=== PATIENT | female | born 1950 | race Caucasian/White ===

== ENCOUNTER 2016-12-05 15:54 | Inpatient (IN) | payer BC ==
[~2016-12-05] VITALS: Ht 165.1 cm; Wt 85.0 kg
[~2016-12-05 15:54] MED LIST: CALC600T13 PO; LEVO.05 PO; MULT-135 PO; NATU400T PO; ROSU5 PO; VENTAER INH
[2016-12-06] MEDS ORDERED: INSULIN HUMAN REGULAR 1,000 UNITS/10 ML VIAL SQ PRN (11:30)
[2016-12-06] MEDS ORDERED: LACTATED RINGER'S 1000 ML IV PRN (11:30)
[2016-12-06] MEDS ORDERED: METOPROLOL TARTRATE 25 MG TAB PO PRN (11:30)
[2016-12-06] MEDS ORDERED: SODIUM CHLORID 0.9% 500 ML IV PRN (11:30)
[2016-12-06] MEDS ORDERED: POVIDONE IODINE 5% (ANTISEPSIS KIT) 4 APPLICATIONS EACH NARE PRN (11:30)
[2016-12-06] MEDS ORDERED: CHLORHEXIDINE GLUCONATE 2 % 1 PACK (2 CLOTHS) TOPICAL PRN (11:30)
[2016-12-06] MEDS ORDERED: ceFAZolin 2 GM PREMIX 50 ML IV SCH (11:30)
[2016-12-06 11:43] VITALS: BP 152/89; PULSE 79; RESP 18; TEMP 98.2; O2SAT 97
[2016-12-06] MEDS ORDERED: DEXMEDETOMIDINE HCL 200 MCG/2 ML VIAL IV ONE (12:00)
[2016-12-06] MEDS ORDERED: ePHEDrine/NS 25 MG/5 ML SYR IV ONE (12:24)
[2016-12-06] MEDS ORDERED: NORMOSOL R INJ 4,000 ML IV ONE (12:24)
[2016-12-06] MEDS ORDERED: PHENYLEPH/NS 1000 MCG/10 ML SYR IV ONE (12:24)
[2016-12-06] MEDS ORDERED: LACTATED RINGER'S 1000 ML INJ 2,000 ML IV ONE (12:24)
[2016-12-06] MEDS ORDERED: NEOSTIGMINE 3 MG/3 ML SYR IV ONE (12:24)
[2016-12-06] MEDS ORDERED: PROPOFOL 200 MG/20 ML AMP IV ONE (12:24)
[2016-12-06] MEDS ORDERED: ONDANSETRON HCL 4 MG/2 ML VIAL IV PUSH ONE (12:24)
[2016-12-06] MEDS ORDERED: BUPIVACAINE LIPOSOME PF 1.3% 20 ML VIAL ONE (12:50)
[2016-12-06 13:11] LABS: APTT (PATIENT) 22.2 SEC (24.3-30.1)
[2016-12-06] MEDS ORDERED: FAMOTIDINE 20 MG/2 ML VIAL ONE (13:16)
[2016-12-06] MEDS ORDERED: DEXAMETHASONE SOD PHOS 4 MG/ML VIAL ONE (13:16)
[2016-12-06] MEDS ORDERED: ACETAMINOPHEN 1000 MG/100 ML VIAL IV ONE (13:20)
[2016-12-06] MEDS ORDERED: ceFAZolin INJ 1,000 MG VIAL IV ONE (14:00)
[2016-12-06] MEDS ORDERED: metroNIDAZOLE 500 MG INJ 100 ML IV ONE (14:30)
[2016-12-06] MEDS ORDERED: METHYLENE BLUE 10 MG/ML VIAL OTHER ONE (17:00)
[2016-12-06 17:12] LABS: AUTOMATED NEUTROPHIL # 12.5 TH/MM3 (1.8-7.7); BASOPHIL % 0.2 % (0.0-2.0); EOSINOPHIL % 0.2 % (0.0-4.0); HEMATOCRIT 26.6 % (35.0-46.0); HEMO FLAGS DIFF FINAL; LYMPH % 7.1 % (9.0-44.0); MEAN CELL VOLUME 81.8 FL (80.0-100.0); MEAN CORPUSCULAR HEMOGLOBIN 28.3 PG (27.0-34.0); MEAN CORPUSCULAR HGB CONC 34.6 % (32.0-36.0); MONO % 3.1 % (0.0-8.0); NEUT % 89.4 % (16.0-70.0); PLATELET COUNT 173 TH/MM3 (150-450); RED BLOOD COUNT 3.26 MIL/MM3 (4.00-5.30); RED CELL DISTRIBUTION WIDTH 13.9 % (11.6-17.2)
[2016-12-06 17:43] LABS: BLOOD GAS BASE EXCESS -4.6 mmol/L (-2-2); BLOOD GAS CARBOXYHEMOGLOBIN 1.3 % (0-4); BLOOD GAS HCO3 20 mmol/L (22-26); BLOOD GAS O2 HGB SATURATION 97 % (90-100); BLOOD GAS OXYGEN CONTENT 22.3 Vol % (12.0-20.0); BLOOD GAS PCO2 35 mmHg (38-42); BLOOD GAS PO2 243 mmHg (61-120); BLOOD GAS TOTAL HGB 15.9 G/DL (12.0-16.0); CRITICAL VALUE NO; OXYGEN DEVICE OR; STAT YES; TEMP CORR TO 98.6; VENT SETTINGS OR
[2016-12-06] MEDS ORDERED: DEXMEDETOMIDINE INJ 50 ML ONE (18:42)
[2016-12-06] MEDS ORDERED: BENZOCAINE 20% ORAL SPR 60 ML CAN MT PRN (19:30)
[2016-12-06] MEDS ORDERED: SODIUM CHLORIDE 0.9% FLUSH 10 ML FLUSH IV FLUSH PRN (19:30)
[2016-12-06] MEDS ORDERED: GLUCAGON 1 MG/ML VIAL OTHER PRN (19:30)
[2016-12-06] MEDS ORDERED: NALOXONE HCL 0.4 MG/ML AMP IV PRN ×2 (19:30)
[2016-12-06] MEDS ORDERED: DEXTROSE 50% IN WATER 50 ML VIAL(D50) IV PUSH PRN (19:30)
[2016-12-06] MEDS ORDERED: diphenhydrAMINE HCL 50 MG/ML VIAL IV PRN (19:30)
[2016-12-06] MEDS ORDERED: Post-op Orders (for Pharmacy) MISC XX ONE (19:30)
[2016-12-06 19:45] VITALS: O2SAT 100
[2016-12-06] MEDS ORDERED: MIDAZOLAM HCL 2 MG/2 ML VIAL ONE (19:53)
[2016-12-06] MEDS ORDERED: fentaNYL CITRATE 250 MCG/5 ML AMP ONE ×2 (19:53→19:54)
[2016-12-06] MEDS ORDERED: MORPHINE SULFATE 4 MG/ML INJ ONE (19:54)
--- NOTE | 2016-12-06 20:05 | HHI.PR ---
Immediate Post Op Note Procedure Date: Dec 06, 2016 Pre Op Diagnosis: (1) Pelvic mass in female Post Op Diagnosis: (1) Pelvic mass in female (2) Carcinomatosis Surgeon: Dada Kyle Termite Control Service Representative(s): MD Fifi Christian MD Procedure: ExLap resection of pelvic mass with en bloc resection of sigmoid colon and distal rectum, with end colostomy Left ureterolysis Repair of cystotomy Repair of left internal iliac vein (Maria Dolores) Repair of vaginal cuff (Fifi) Findings: pelvic mass involving sigmoid colon, distal rectum, left iliac vein, bladder and vaginal cuff Complications: none Specimen(s) removed: pelvic mass Estimated blood loss: 2 liters Anesthesia: General, Regional Block Drains: SOLO IVF Patient to: PACU Patient Condition: Good Dada Kyle MD Dec 06, 2016 20:05
[2016-12-06] MEDS: PANTOPRAZOLE SODIUM 40 MG VIAL IV SCH (20:40)
[2016-12-06] MEDS ORDERED: *ONDANSETRON 4 MG VIAL PERIprocedural Use ONLY ONE (20:44)
[2016-12-06] MEDS: LACTATED RINGER'S 1000 ML INJ 1,000 ML IV SCH (20:50)
[2016-12-06] MEDS: SODIUM CHLORIDE 0.9% FLUSH 10 ML FLUSH IV FLUSH SCH (21:00)
[2016-12-06] MEDS: ACETAMINOPHEN 1000 MG/100 ML VIAL IV SCH (21:06)
[2016-12-06] MEDS: MORPHINE SULFATE 30 MG/30 ML PCA IV SCH ×2 (21:12→21:15)
[2016-12-06] MEDS ORDERED: METOCLOPRAMIDE HCL 10 MG/2 ML VIAL ONE (21:28)
[2016-12-06] MEDS: INSULIN NovoLIN REGULAR SUPPLEMENTAL SCALE SQ SCH (21:30)
[2016-12-06 21:35] LABS: APTT (PATIENT) 19.7 SEC (24.3-30.1); INTERNATIONAL NORMALIZED RATIO 1.1 RATIO; PROTHROMBIN TIME - PATIENT 11.7 SEC (9.8-11.6)
[2016-12-06 21:41] LABS: HEMATOCRIT 30.2 % (35.0-46.0); MEAN CELL VOLUME 81.1 FL (80.0-100.0); MEAN CORPUSCULAR HEMOGLOBIN 27.6 PG (27.0-34.0); MEAN CORPUSCULAR HGB CONC 34.1 % (32.0-36.0); PLATELET COUNT 134 TH/MM3 (150-450); RED BLOOD COUNT 3.72 MIL/MM3 (4.00-5.30); RED CELL DISTRIBUTION WIDTH 14.4 % (11.6-17.2); REVIEW FLAG FINAL; WHITE BLOOD COUNT 13.3 TH/MM3 (4.0-11.0)
[2016-12-06] MEDS: PCA - TOTAL MG MORPHINE DELIVERED PER SHIFT SCH (22:00)
[2016-12-06 22:19] LABS: BICARBONATE 23.7 MEQ/L (21.0-32.0); MAGNESIUM 1.9 MG/DL (1.5-2.5); POTASSIUM 3.5 MEQ/L (3.5-5.1)
[2016-12-06 22:40] LABS: CALCIUM-PROTEIN CORRECTED 7.8 MG/DL (8.5-10.1)
[2016-12-06] MEDS: metroNIDAZOLE 500 MG INJ 100 ML IV SCH (23:50)
--- NOTE | 2016-12-07 00:45 | PD.CONS ---
[facility] Service Critical Care Medicine Consult Requested By Dr. Kyle Reason for Consult Critical care management following complex pelvic mass resection Primary Care Physician Non-Staff History of Present Illness 66-year-old female with past medical history of asthma, hyperlipidemia , hypothyroidism who has been recently diagnosed with a complex left pelvic mass. She has undergone exploratory laparotomy with pelvic mass resection, sigmoidectomy and colostomy by Dr. Jewell, Dr. Calix and Dr. Smith. Anesthesia records reviewed. She was a routine airway for intubation. She received 7 L of crystalloid, 4 units packed red cells, 534 of FFP intraoperatively. Estimated blood loss was 2 L. Urine output 1 L. Postoperative hemoglobin is 10.5. 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 SKIN: Warm and dry, well perfused. HEAD: Atraumatic. Normocephalic. EYES: Pupils equal and round 3 mm and reactive bilaterally. ENT: No nasal bleeding or discharge. Mucous membranes pink and moist. NECK: Trachea midline. No JVD. CARDIOVASCULAR: Regular rate and rhythm, sinus rhythm on the monitor with rate in the 60s. No murmurs rubs or gallops. RESPIRATORY: No accessory muscle use. Clear to auscultation. Breath sounds equal bilaterally. On 2 L nasal cannula GASTROINTESTINAL: Abdomen soft, tender. Kay dressing in place midline. Ostomy in left abdomen with pink mucosa, no output in bag. Pravin drain RLQ to to bulb suction with dressing with output. : Escobar in place with light yellow urine output. MUSCULOSKELETAL: Extremities without clubbing, cyanosis, or edema. No obvious deformities. NEUROLOGICAL: Awake and alert. No obvious cranial nerve deficits. Motor grossly within normal limits. Normal speech. Oriented 4 Laboratory Laboratory Tests Test 12/06/16 12/06/16 12/06/16 12/06/16 12:40 13:17 16:08 16:51 Prothrombin Time 11.0 Prothromb Time International 1.0 Ratio Activated Partial 22.2 Thromboplast Time Blood Type A POSITIVE A POSITIVE A POSITIVE Antibody Screen NEGATIVE NEGATIVE Crossmatch Leukocyte-Reduced Leukocyte-Reduced Red Blood Red Blood Cells Cells Blood Bank Comment Test 12/06/16 12/06/16 12/06/16 16:58 17:30 20:54 White Blood Count 14.0 13.3 Red Blood Count 3.26 3.72 Hemoglobin 9.2 10.3 Hematocrit 26.6 30.2 Mean Corpuscular Volume 81.8 81.1 Mean Corpuscular Hemoglobin 28.3 27.6 Mean Corpuscular Hemoglobin 34.6 34.1 Concent Red Cell Distribution Width 13.9 14.4 Platelet Count 173 134 Mean Platelet Volume 9.3 9.3 Neutrophils (%) (Auto) 89.4 Lymphocytes (%) (Auto) 7.1 Monocytes (%) (Auto) 3.1 Eosinophils (%) (Auto) 0.2 Basophils (%) (Auto) 0.2 Neutrophils # (Auto) 12.5 Lymphocytes # (Auto) 1.0 Monocytes # (Auto) 0.4 Eosinophils # (Auto) 0.0 Basophils # (Auto) 0.0 CBC Comment DIFF FINAL Differential Comment Blood Gas Puncture Site DRAWN IN OR Blood Gas Patient Temperature 98.6 Blood Gas HCO3 20 Blood Gas Base Excess -4.6 Blood Gas Oxygen Saturation 97 Arterial Blood pH 7.37 Arterial Blood Partial 35 Pressure CO2 Arterial Blood Partial 243 Pressure O2 Arterial Blood Oxygen Content 22.3 Arterial Blood 1.3 Carboxyhemoglobin Arterial Blood Methemoglobin 1.0 Blood Gas Hemoglobin 15.9 Oxygen Delivery Device OR Blood Gas Ventilator Setting OR Prothrombin Time 11.7 Prothromb Time International 1.1 Ratio Activated Partial 19.7 Thromboplast Time Fibrinogen 151 Sodium Level 140 Potassium Level 3.5 Chloride Level 106 Carbon Dioxide Level 23.7 Anion Gap 10 Blood Urea Nitrogen 9 Creatinine 0.68 Estimat Glomerular Filtration 87 Rate Random Glucose 219 Lactic Acid Level 3.2 Calcium Level 6.5 Protein Corrected Calcium 7.8 Phosphorus Level 2.9 Magnesium Level 1.9 Total Protein 4.6 Result Diagram: 12/06/16205312/06/162053 Assessment and Plan Assessment and Plan NEURO: Osteoarthritis Morphine DEPUTY CITY CLERK RESP: History of asthma Nasal cannula wean as tolerated Albuterol q2 hours prn wheezing IS q1 hour awake CV: Hyperlipidemia Crestor 5 mg po qhs when able to take po GI: s/p exploratory laparotomy with pelvic mass resection, sigmoidectomy and colostomy by Dr. Jewell, Dr. Calix and Dr. Smith NPO. Diet advancement per surgery. FEN/RENAL: LR at 150 mL per hour Escobar in place. Monitor intake and output. Monitor electrolytes and replace as indicated ID: Perioperative cefazolin and Flagyl per Dr. Jewell. HEME: Pathology pending. Prior biopsy high grade undifferentiated malignant neoplasm , Mullerian or renal origen. She has seen Dr. Corona Henry with oncology at [facility] as an outpatient. ENDO: Hypothyroidism Synthroid 25 mcg IV daily, transition to 50 mcg po daily when diet advanced. PROPH: SCDs for DVT prophylaxis. Protonix 40 mg IV daily for stress ulcer prophylaxis. ACCESS: Peripheral IV providing adequate access at this time. Full code Level III consultation Ema Torre MD Dec 07, 2016 00:45
[2016-12-07] MEDS: ACETAMINOPHEN 1000 MG/100 ML VIAL IV SCH ×4 (02:00→22:53)
[2016-12-07] MEDS: LACTATED RINGER'S 1000 ML INJ 1,000 ML IV SCH ×4 (03:30→22:09)
[2016-12-07 05:44] LABS: AUTOMATED NEUTROPHIL # 10.4 TH/MM3 (1.8-7.7); BASOPHIL % 0.1 % (0.0-2.0); HEMO FLAGS DIFF FINAL; LYMPH % 6.6 % (9.0-44.0); LYMPHOCYTE # 0.8 TH/MM3 (1.0-4.8); MEAN CELL VOLUME 80.4 FL (80.0-100.0); MEAN CORPUSCULAR HEMOGLOBIN 28.2 PG (27.0-34.0); NEUT % 86.3 % (16.0-70.0); PLATELET COUNT 127 TH/MM3 (150-450); RED BLOOD COUNT 3.23 MIL/MM3 (4.00-5.30); RED CELL DISTRIBUTION WIDTH 14.6 % (11.6-17.2); WHITE BLOOD COUNT 12.1 TH/MM3 (4.0-11.0)
[2016-12-07] MEDS: PCA - TOTAL MG MORPHINE DELIVERED PER SHIFT SCH ×3 (06:00→22:00)
[2016-12-07 06:09] LABS: BICARBONATE 27.1 MEQ/L (21.0-32.0); POTASSIUM 3.6 MEQ/L (3.5-5.1)
[2016-12-07 06:34] LABS: CALCIUM-PROTEIN CORRECTED 8.4 MG/DL (8.5-10.1)
[2016-12-07] MEDS: INSULIN NovoLIN REGULAR SUPPLEMENTAL SCALE SQ SCH ×4 (07:00→21:00)
[2016-12-07] MEDS: metroNIDAZOLE 500 MG INJ 100 ML IV SCH ×2 (07:00→15:48)
[2016-12-07] MEDS: ONDANSETRON HCL 4 MG/2 ML VIAL IV PRN ×4 (08:45→22:54)
[2016-12-07] MEDS: SODIUM CHLORIDE 0.9% FLUSH 10 ML FLUSH IV FLUSH SCH ×2 (09:00→22:56)
[2016-12-07] MEDS: ALVIMOPAN 12 MG CAPSULE PO SCH ×2 (09:00→22:54)
--- NOTE | 2016-12-07 09:03 | PD.TRANSFR ---
Transfer Summary Admission Date Dec 06, 2016 at 10:40 Transfer Date: Dec 08, 2016 Admitting Diagnosis Pelvic Mass Diagnoses: Transfer Summary/Subjective 66-year-old female with past medical history of asthma, hyperlipidemia , hypothyroidism who has been recently diagnosed with a complex left pelvic mass. She has undergone exploratory laparotomy with pelvic mass resection, sigmoidectomy and colostomy by Dr. Jewell, Dr. Calix and Dr. Smith. Anesthesia records reviewed. She was a routine airway for intubation. She received 7 L of crystalloid, 4 units packed red cells, 534 of FFP intraoperatively. Estimated blood loss was 2 L. Urine output 1 L. Postoperative hemoglobin is 10.5. 12/07: Hgb stable, urine output excellent, acid/base balance normal, breathing comfortably. Objective Vital Signs Date Time Temp Pulse Resp B/P Pulse Ox O2 Delivery O2 Flow Rate FiO2 12/07/16 07:00 75 12 108/58 99 Nasal Cannula 3 12/07/16 06:00 98.1 Intake and Output 12/06/16 12/06/16 12/07/16 08:00 16:00 00:00 Intake Total 8534 ml Output Total 3040 ml Balance 5494 ml Result Diagram: 12/07/16 0529 12/07/16 0529 Other Results Laboratory Tests Test 12/06/16 17:30 Blood Gas Puncture Site DRAWN IN OR Blood Gas Patient Temperature 98.6 Blood Gas HCO3 20 mmol/L (22-26) Blood Gas Base Excess -4.6 mmol/L (-2-2) Blood Gas Oxygen Saturation 97 % (90-100) Arterial Blood pH 7.37 (7.380-7.420) Arterial Blood Partial 35 mmHg (38-42) Pressure CO2 Arterial Blood Partial 243 mmHg Pressure O2 (61-120) Arterial Blood Oxygen Content 22.3 Vol % (12.0-20.0) Arterial Blood 1.3 % (0-4) Carboxyhemoglobin Arterial Blood Methemoglobin 1.0 % (0-2) Blood Gas Hemoglobin 15.9 G/DL (12.0-16.0) Oxygen Delivery Device OR Blood Gas Ventilator Setting OR P 78, BP 108/58, R 14, sats 97% Lungs: Clear, breathing comfortably. Objective Remarks Drips: LR 150 mL per hour Morphine CLINICAL APPEALS SPECIALIST Pulse 68 with normal sinus rhythm on the monitor blood pressure 99/50 sats 99% on 2 L nasal cannula GENERAL: Well-nourished, well-developed patient who is sitting up in PACU bed alerting to be negative. SKIN: Warm and dry, well perfused. HEAD: Atraumatic. Normocephalic. EYES: Pupils equal and round 3 mm and reactive bilaterally. ENT: No nasal bleeding or discharge. Mucous membranes pink and moist. NECK: Trachea midline. No JVD. CARDIOVASCULAR: Regular rate and rhythm, sinus rhythm on the monitor with rate in the 60s. No murmurs rubs or gallops. RESPIRATORY: No accessory muscle use. Clear to auscultation. Breath sounds equal bilaterally. On 2 L nasal cannula GASTROINTESTINAL: Abdomen soft, tender. Kay dressing in place midline. Ostomy in left abdomen with pink mucosa, no output in bag. Pravin drain RLQ to to bulb suction with dressing with output. : Escobar in place with light yellow urine output. MUSCULOSKELETAL: Extremities without clubbing, cyanosis, or edema. No obvious deformities. NEUROLOGICAL: Awake and alert. No obvious cranial nerve deficits. Motor grossly within normal limits. Normal speech. Oriented 4 A/P Assessment and Plan NEURO: Osteoarthritis Morphine CLINICAL APPEALS SPECIALIST RESP: History of asthma Nasal cannula wean as tolerated CV: Hyperlipidemia GI: FEN/RENAL: LR at 150 L per hour -> decrease to 75. ID: HEME: She has seen Dr. Corona Hnery with oncology at [facility] as an outpatient ENDO: Hypothyroidism PROPH: SCDs for DVT prophylaxis. Protonix 40 mg IV daily for stress ulcer prophylaxis. ACCESS: Peripheral IV providing adequate access at this time. Full code Overall impression: Well hydrated, breathing comfortably. Transfer to with Oil Change Technician consulting. Hopefully to [facility] in a.devan. Олег Gasca MD Dec 07, 2016 09:03
[2016-12-07 09:50] VITALS: BP 100/53; PULSE 70; RESP 20; TEMP 96.9; O2SAT 94
[2016-12-07] MEDS ORDERED: RESP: ALBUTEROL 2.5 MG/3 ML NEB (PRN) NEB (10:15)
--- NOTE | 2016-12-07 11:30 | PD.VS.CON ---
History of Present Illness Chief Complaint: call intraoperative for bleeding. Consult Requested by: Past/Family/Social History Past Medical History not obtained, patient in OR. Home Medications Reported Medications Albuterol 18 GM Inh (Ventolin Hfa 18 GM Inh)90 Mcg/Act Aer2 Puff INH Q4-6H PRN ( SHORTNESS OF BREATH) #1 INHALER Ref 0 12/05/16 Vitamin E 400 Unit Ial102 Units PO DAILY Ref 0 12/05/16 Multiple Vitamin (Multi Vitamin)1 Tab Tab1 Tab PO DAILY 12/05/16 Calcium 600 Mg Qtq375 Mg PO DAILY 12/05/16 Rosuvastatin (Crestor)5 Mg Tab5 Mg PO HS #30 TAB Ref 0 12/05/16 Levothyroxine (Synthroid)50 Mcg Tab50 Mcg PO DAILY #30 TAB Ref 0 12/05/16 Coded Allergies: Sulfa (Verified Allergy, Severe, GENERALIZED EDEMA, RASH, 12/06/16) Physical Exam Vitals/I&O Date Time Temp Pulse Resp B/P Pulse Ox O2 Delivery O2 Flow Rate FiO2 12/07/16 09:50 96.9 70 20 100/53 94 12/07/16 09:36 Room Air 12/07/16 09:00 98.4 74 12 97/71 99 Nasal Cannula 2 12/07/16 08:00 98.4 74 12 102/56 99 Nasal Cannula 2 12/07/16 07:00 75 12 108/58 99 Nasal Cannula 3 12/07/16 06:00 98.1 72 12 99/57 99 Nasal Cannula 3 12/07/16 06:00 14 12/07/16 05:00 69 12 110/55 99 Nasal Cannula 3 12/07/16 04:00 68 12 110/53 99 Nasal Cannula 3 12/07/16 03:00 70 11 120/54 99 Nasal Cannula 3 12/07/16 02:00 83 14 91/54 99 Nasal Cannula 3 12/07/16 01:00 64 12 119/67 99 Nasal Cannula 3 12/07/16 00:00 97.6 66 11 107/57 99 Nasal Cannula 3 12/06/16 23:00 75 12 93/49 99 Nasal Cannula 3 12/06/16 22:00 70 12 99/47 99 Nasal Cannula 3 12/06/16 22:00 14 12/06/16 21:36 14 4/12/17 21:15 14 12/06/16 21:12 14 12/06/16 21:00 97.8 75 15 107/60 99 Nasal Cannula 3 12/06/16 20:45 77 14 111/67 98 Nasal Cannula 3 12/06/16 20:30 80 11 108/60 99 Nasal Cannula 3 12/06/16 20:15 83 14 98/64 98 Nasal Cannula 3 12/06/16 20:00 84 12 99/58 99 Nasal Cannula 3 12/06/16 19:45 100 Nasal Cannula 2 12/06/16 19:45 88 12 102/56 100 Nasal Cannula 3 12/06/16 19:34 97.8 92 13 114/69 99 Ambu Bag 12/06/16 11:43 98.2 79 18 152/89 97 12/07/16 12/07/16 12/07/16 07:00 15:00 23:00 Intake Total 1675 ml 541 ml Output Total 1250 ml 150 ml Balance 425 ml 391 ml Neuro: not performed, patient intubated and with open abdomen. Laboratory Tests Test 12/06/16 12/06/16 12/06/16 12/06/16 12:40 13:17 16:08 16:51 Prothrombin Time 11.0 Prothromb Time International 1.0 Ratio Activated Partial 22.2 Thromboplast Time Blood Type A POSITIVE A POSITIVE A POSITIVE Antibody Screen NEGATIVE NEGATIVE Crossmatch Leukocyte-Reduced Leukocyte-Reduced Red Blood Red Blood Cells Cells Blood Bank Comment Test 12/06/16 12/06/16 12/06/16 12/07/16 16:58 17:30 20:54 05:29 White Blood Count 14.0 13.3 12.1 Red Blood Count 3.26 3.72 3.23 Hemoglobin 9.2 10.3 9.1 Hematocrit 26.6 30.2 26.0 Mean Corpuscular Volume 81.8 81.1 80.4 Mean Corpuscular Hemoglobin 28.3 27.6 28.2 Mean Corpuscular Hemoglobin 34.6 34.1 35.0 Concent Red Cell Distribution Width 13.9 14.4 14.6 Platelet Count 173 134 127 Mean Platelet Volume 9.3 9.3 9.2 Neutrophils (%) (Auto) 89.4 86.3 Lymphocytes (%) (Auto) 7.1 6.6 Monocytes (%) (Auto) 3.1 7.0 Eosinophils (%) (Auto) 0.2 0.0 Basophils (%) (Auto) 0.2 0.1 Neutrophils # (Auto) 12.5 10.4 Lymphocytes # (Auto) 1.0 0.8 Monocytes # (Auto) 0.4 0.9 Eosinophils # (Auto) 0.0 0.0 Basophils # (Auto) 0.0 0.0 CBC Comment DIFF FINAL DIFF FINAL Differential Comment Blood Gas Puncture Site DRAWN IN OR Blood Gas Patient Temperature 98.6 Blood Gas HCO3 20 Blood Gas Base Excess -4.6 Blood Gas Oxygen Saturation 97 Arterial Blood pH 7.37 Arterial Blood Partial 35 Pressure CO2 Arterial Blood Partial 243 Pressure O2 Arterial Blood Oxygen Content 22.3 Arterial Blood 1.3 Carboxyhemoglobin Arterial Blood Methemoglobin 1.0 Blood Gas Hemoglobin 15.9 Oxygen Delivery Device OR Blood Gas Ventilator Setting OR Prothrombin Time 11.7 Prothromb Time International 1.1 Ratio Activated Partial 19.7 Thromboplast Time Fibrinogen 151 Sodium Level 140 142 Potassium Level 3.5 3.6 Chloride Level 106 107 Carbon Dioxide Level 23.7 27.1 Anion Gap 10 8 Blood Urea Nitrogen 9 8 Creatinine 0.68 0.68 Estimat Glomerular Filtration 87 87 Rate Random Glucose 219 150 Lactic Acid Level 3.2 Calcium Level 6.5 7.0 Protein Corrected Calcium 7.8 8.4 Phosphorus Level 2.9 Magnesium Level 1.9 Total Protein 4.6 4.6 Assessment and Plan Assessment: (1) Bleeding Status: Acute (2) Pelvic mass in female Status: Acute Plan Called intraoperatively for bleeding from deep in pelvis with resection of tumor. Tumor was invasive and adherent to pelvic vessels. Repaired left hypogastric artery and left internal iliac vein. Operative note for this portion of operation dictated. Patient stable before DC from OR. Robert Smith DO, FACS Stripping Shovel Oiler of Vascular Surgery EVANGELIST/Robert García DO Dec 07, 2016 11:30
--- NOTE | 2016-12-07 11:33 | PD.VS.PN ---
Subjective Subjective/Hospital Course Status post resection of pelvic tumor. Asked to assist with bleeding. Objective Vitals/I&O Date Time Temp Pulse Resp B/P Pulse Ox O2 Delivery O2 Flow Rate FiO2 12/07/16 09:50 96.9 70 20 100/53 94 12/07/16 09:36 Room Air 12/07/16 09:00 98.4 74 12 97/71 99 Nasal Cannula 2 12/07/16 08:00 98.4 74 12 102/56 99 Nasal Cannula 2 12/07/16 07:00 75 12 108/58 99 Nasal Cannula 3 12/07/16 06:00 98.1 72 12 99/57 99 Nasal Cannula 3 12/07/16 06:00 14 12/07/16 05:00 69 12 110/55 99 Nasal Cannula 3 12/07/16 04:00 68 12 110/53 99 Nasal Cannula 3 12/07/16 03:00 70 11 120/54 99 Nasal Cannula 3 12/07/16 02:00 83 14 91/54 99 Nasal Cannula 3 12/07/16 01:00 64 12 119/67 99 Nasal Cannula 3 12/07/16 00:00 97.6 66 11 107/57 99 Nasal Cannula 3 12/06/16 23:00 75 12 93/49 99 Nasal Cannula 3 12/06/16 22:00 70 12 99/47 99 Nasal Cannula 3 12/06/16 22:00 14 12/06/16 21:36 14 12/06/16 21:15 14 12/06/16 21:12 14 12/06/16 21:00 97.8 75 15 107/60 99 Nasal Cannula 3 12/06/16 20:45 77 14 111/67 98 Nasal Cannula 3 12/06/16 20:30 80 11 108/60 99 Nasal Cannula 3 12/06/16 20:15 83 14 98/64 98 Nasal Cannula 3 12/06/16 20:00 84 12 99/58 99 Nasal Cannula 3 12/06/16 19:45 100 Nasal Cannula 2 12/06/16 19:45 88 12 102/56 100 Nasal Cannula 3 12/06/16 19:34 97.8 92 13 114/69 99 Ambu Bag 12/06/16 11:43 98.2 79 18 152/89 97 12/07/16 12/07/16 12/07/16 07:00 15:00 23:00 Intake Total 1675 ml 541 ml Output Total 1250 ml 150 ml Balance 425 ml 391 ml Physical Exam Palpable pedal pulses with warm extremities. Laboratory Laboratory Tests Test 12/06/16 12/06/16 12/06/16 12/06/16 12:40 13:17 16:08 16:51 Prothrombin Time 11.0 Prothromb Time International 1.0 Ratio Activated Partial 22.2 Thromboplast Time Blood Type A POSITIVE A POSITIVE A POSITIVE Antibody Screen NEGATIVE NEGATIVE Crossmatch Leukocyte-Reduced Leukocyte-Reduced Red Blood Red Blood Cells Cells Blood Bank Comment Test 12/06/16 12/06/16 12/06/16 12/07/16 16:58 17:30 20:54 05:29 White Blood Count 14.0 13.3 12.1 Red Blood Count 3.26 3.72 3.23 Hemoglobin 9.2 10.3 9.1 Hematocrit 26.6 30.2 26.0 Mean Corpuscular Volume 81.8 81.1 80.4 Mean Corpuscular Hemoglobin 28.3 27.6 28.2 Mean Corpuscular Hemoglobin 34.6 34.1 35.0 Concent Red Cell Distribution Width 13.9 14.4 14.6 Platelet Count 173 134 127 Mean Platelet Volume 9.3 9.3 9.2 Neutrophils (%) (Auto) 89.4 86.3 Lymphocytes (%) (Auto) 7.1 6.6 Monocytes (%) (Auto) 3.1 7.0 Eosinophils (%) (Auto) 0.2 0.0 Basophils (%) (Auto) 0.2 0.1 Neutrophils # (Auto) 12.5 10.4 Lymphocytes # (Auto) 1.0 0.8 Monocytes # (Auto) 0.4 0.9 Eosinophils # (Auto) 0.0 0.0 Basophils # (Auto) 0.0 0.0 CBC Comment DIFF FINAL DIFF FINAL Differential Comment Blood Gas Puncture Site DRAWN IN OR Blood Gas Patient Temperature 98.6 Blood Gas HCO3 20 Blood Gas Base Excess -4.6 Blood Gas Oxygen Saturation 97 Arterial Blood pH 7.37 Arterial Blood Partial 35 Pressure CO2 Arterial Blood Partial 243 Pressure O2 Arterial Blood Oxygen Content 22.3 Arterial Blood 1.3 Carboxyhemoglobin Arterial Blood Methemoglobin 1.0 Blood Gas Hemoglobin 15.9 Oxygen Delivery Device OR Blood Gas Ventilator Setting OR Prothrombin Time 11.7 Prothromb Time International 1.1 Ratio Activated Partial 19.7 Thromboplast Time Fibrinogen 151 Sodium Level 140 142 Potassium Level 3.5 3.6 Chloride Level 106 107 Carbon Dioxide Level 23.7 27.1 Anion Gap 10 8 Blood Urea Nitrogen 9 8 Creatinine 0.68 0.68 Estimat Glomerular Filtration 87 87 Rate Random Glucose 219 150 Lactic Acid Level 3.2 Calcium Level 6.5 7.0 Protein Corrected Calcium 7.8 8.4 Phosphorus Level 2.9 Magnesium Level 1.9 Total Protein 4.6 4.6 Assessment and Plan Assessment: (1) Bleeding Status: Acute (2) Pelvic mass in female Status: Acute Plan Called intraoperatively for bleeding from deep in pelvis with resection of tumor. Tumor was invasive and adherent to pelvic vessels. Repaired left hypogastric artery and left internal iliac vein. Operative note for this portion of operation dictated. Patient stable before DC from OR. Will sign off as patient is hemodynamically stable. Thanks for allowing me to participate in the care of this patient. Robret Smith DO, FACS Ecological Economist of Vascular Surgery /Robert García DO Dec 07, 2016 11:33
[2016-12-07 11:58] VITALS: BP 108/53; PULSE 72; RESP 16; TEMP 97.4; O2SAT 96
--- NOTE | 2016-12-07 12:42 | PD.CONS ---
[facility] Request[facility] By Doctor Олег Gasca Reason for Consult Medical Management Primary Care Physician Non-Staff Diagnoses: History of Present Illness This is a pleasant 66 y/o Female with Asthma, Hyperlipidemia, Hyperthyroidism, who has been diagnosed with a Complex Left Pelvic mass, status post Exploratory laparotomy with Pelvic Mass resection, Sigmoidectomy and colostomy by Dr. Jewell, Dr. Calix and Dr. Smith. Had a routine airway for intubation. She received 7 L of crystalloid, 4 units packed red cells, 534 of FFP intraoperatively. Estimated blood loss was 2 L. Urine output 1 L. Postoperative hemoglobin is 10.5. today Hemoglobin 9.1 and Potassium 3.6, she was seen in the room, complaint that she wants to sleep and is not been able to, due to multiple interruptions. but answer all my questions. no nausea, vomit or diarrhea. Past Family Social History Allergies: Coded Allergies: Sulfa (Verified Allergy, Severe, GENERALIZED EDEMA, RASH, 12/06/16) Past Medical History Asthma Hyperlipidemia Hypothyroidism Osteoarthritis bilateral knees Migraines Uterine fibroids Endometriosis Past Surgical History Appendectomy Cholecystectomy Complete hysterectomy Colonoscopy Pyloromyotomy for pyloric stenosis in 1951 Reported Medications Reported Meds & Active Scripts Active Reported Ventolin Hfa 18 GM Inh (Albuterol Sulfate) 90 Mcg/Act Aer 2 Puff INH Q4-6H PRN Vitamin E 400 Unit Tab 400 Units PO DAILY Multi Vitamin (Multiple Vitamin) 1 Tab Tab 1 Tab PO DAILY Calcium 600 Mg Tab 600 Mg PO DAILY Crestor (Rosuvastatin Calcium) 5 Mg Tab 5 Mg PO HS Synthroid (Levothyroxine Sodium) 50 Mcg Tab 50 Mcg PO DAILY Active Ordered Medications Current Medications Medications (Trade) Dose Ordered Sig/Benedicto Route Start Time Stop Time Status Last Admin (Lr 1000 ml Inj) 1,000 ml @ 150 mls/hr Q6H40M IV 12/06/16 19:29 12/07/16 03:30 (NS Flush) 2 ml UNSCH PRN IV FLUSH 12/06/16 19:30 (NS Flush) 2 ml BID IV FLUSH 12/06/16 21:00 12/06/16 21:00 (Zofran Inj) 4 mg Q6H PRN IV 12/06/16 19:30 12/07/16 10:21 (Protonix Inj) 40 mg Q24H IV 12/06/16 21:00 12/06/16 20:40 Diphenhydramine HCl 25 mg 25 mg Q6H PRN IV 12/06/16 19:30 Cefazolin Sodium 1000 mg/Sodium Chloride 100 ml @ 200 mls/hr Q8H IV 12/06/16 22:00 12/07/16 14:29 12/07/16 06:00 (Flagyl 500 Mg Inj) 100 ml @ 200 mls/hr Q8H IV 12/06/16 23:00 12/07/16 15:29 12/07/16 07:00 (Ofirmev Inj) 1,000 mg Q6H IV 12/06/16 20:00 12/08/16 14:01 12/07/16 08:45 (Narcan Inj) 0.4 mg UNSCH PRN IV 12/06/16 19:30 (Narcan Inj) 0.4 mg UNSCH PRN IV 12/06/16 19:30 (Morphine 1 Mg/ ml INK BLENDER) 30 mg UNSCH IV 12/06/16 19:30 12/06/16 21:15 INK BLENDER Dosage Infused (Pha) 1 Q8HR .XX 12/06/16 22:00 12/07/16 06:00 (D50w (Vial) Inj) 25 ml UNSCH PRN IV PUSH 12/06/16 19:30 (Glucagon Inj) 1 mg UNSCH PRN OTHER 12/06/16 19:30 (Entereg) 12 mg Q12HR PO 12/07/16 09:00 (Synthroid Inj) 25 mcg DAILY@06 IV PUSH 12/08/16 06:00 (Flu (Quadrivalent) Vaccine Inj) 0.5 ml ONCE ONCE IM 12/08/16 10:00 12/08/16 10:01 Family History Brother with DM II, Sister with Fibrosarcoma, Sister with CAD, Mother with Ovarian and Uterine Cancer, Social History Denies Toxic habit, 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 Physical Exam Vital Signs Vital Signs Date Time Temp Pulse Resp B/P Pulse Ox O2 Delivery O2 Flow Rate FiO2 12/07/16 11:58 97.4 72 16 108/53 96 12/07/16 09:50 96.9 70 20 100/53 94 12/07/16 09:36 Room Air 12/07/16 09:00 98.4 74 12 97/71 99 Nasal Cannula 2 12/07/16 08:00 98.4 74 12 102/56 99 Nasal Cannula 2 12/07/16 07:00 75 12 108/58 99 Nasal Cannula 3 12/07/16 06:00 98.1 72 12 99/57 99 Nasal Cannula 3 12/07/16 06:00 14 12/07/16 05:00 69 12 110/55 99 Nasal Cannula 3 12/07/16 04:00 68 12 110/53 99 Nasal Cannula 3 12/07/16 03:00 70 11 120/54 99 Nasal Cannula 3 12/07/16 02:00 83 14 91/54 99 Nasal Cannula 3 12/07/16 01:00 64 12 119/67 99 Nasal Cannula 3 12/07/16 00:00 97.6 66 11 107/57 99 Nasal Cannula 3 12/06/16 23:00 75 12 93/49 99 Nasal Cannula 3 12/06/16 22:00 70 12 99/47 99 Nasal Cannula 3 12/06/16 22:00 14 12/06/16 21:36 14 12/06/16 21:15 14 12/06/16 21:12 14 12/06/16 21:00 97.8 75 15 107/60 99 Nasal Cannula 3 12/06/16 20:45 77 14 111/67 98 Nasal Cannula 3 12/06/16 20:30 80 11 108/60 99 Nasal Cannula 3 12/06/16 20:15 83 14 98/64 98 Nasal Cannula 3 12/06/16 20:00 84 12 99/58 99 Nasal Cannula 3 12/06/16 19:45 100 Nasal Cannula 2 12/06/16 19:45 88 12 102/56 100 Nasal Cannula 3 12/06/16 19:34 97.8 92 13 114/69 99 Ambu Bag Physical Exam GENERAL: Well-nourished, well-developed, No distress. SKIN: Warm and dry, well perfused. HEAD: Atraumatic. Normocephalic. EYES: Pupils equal and round 3 mm and reactive bilaterally. ENT: No nasal bleeding or discharge. Mucous membranes pink and moist. NECK: Trachea midline. No JVD. CARDIOVASCULAR: Regular rate and rhythm, sinus rhythm on the monitor with rate in the 60s. No murmurs rubs or gallops. RESPIRATORY: No accessory muscle use. Clear to auscultation. Breath sounds equal bilaterally. On 2 L nasal cannula GASTROINTESTINAL: Abdomen soft, tender. Kay dressing in place midline. Ostomy in left abdomen with pink mucosa. : Escobar in place with light yellow urine output. MUSCULOSKELETAL: Extremities without clubbing, cyanosis, or edema. No obvious deformities. NEUROLOGICAL: Awake and alert. No obvious cranial nerve deficits. Motor grossly within normal limits. Normal speech. Oriented 4 Laboratory Laboratory Tests Test 12/06/16 12/06/16 12/06/16 12/06/16 12:40 13:17 16:08 16:51 Prothrombin Time 11.0 Prothromb Time International 1.0 Ratio Activated Partial 22.2 Thromboplast Time Blood Type A POSITIVE A POSITIVE A POSITIVE Antibody Screen NEGATIVE NEGATIVE Crossmatch Leukocyte-Reduced Leukocyte-Reduced Red Blood Red Blood Cells Cells Blood Bank Comment Test 12/06/16 12/06/16 12/06/16 12/07/16 16:58 17:30 20:54 05:29 White Blood Count 14.0 13.3 12.1 Red Blood Count 3.26 3.72 3.23 Hemoglobin 9.2 10.3 9.1 Hematocrit 26.6 30.2 26.0 Mean Corpuscular Volume 81.8 81.1 80.4 Mean Corpuscular Hemoglobin 28.3 27.6 28.2 Mean Corpuscular Hemoglobin 34.6 34.1 35.0 Concent Red Cell Distribution Width 13.9 14.4 14.6 Platelet Count 173 134 127 Mean Platelet Volume 9.3 9.3 9.2 Neutrophils (%) (Auto) 89.4 86.3 Lymphocytes (%) (Auto) 7.1 6.6 Monocytes (%) (Auto) 3.1 7.0 Eosinophils (%) (Auto) 0.2 0.0 Basophils (%) (Auto) 0.2 0.1 Neutrophils # (Auto) 12.5 10.4 Lymphocytes # (Auto) 1.0 0.8 Monocytes # (Auto) 0.4 0.9 Eosinophils # (Auto) 0.0 0.0 Basophils # (Auto) 0.0 0.0 CBC Comment DIFF FINAL DIFF FINAL Differential Comment Blood Gas Puncture Site DRAWN IN OR Blood Gas Patient Temperature 98.6 Blood Gas HCO3 20 Blood Gas Base Excess -4.6 Blood Gas Oxygen Saturation 97 Arterial Blood pH 7.37 Arterial Blood Partial 35 Pressure CO2 Arterial Blood Partial 243 Pressure O2 Arterial Blood Oxygen Content 22.3 Arterial Blood 1.3 Carboxyhemoglobin Arterial Blood Methemoglobin 1.0 Blood Gas Hemoglobin 15.9 Oxygen Delivery Device OR Blood Gas Ventilator Setting OR Prothrombin Time 11.7 Prothromb Time International 1.1 Ratio Activated Partial 19.7 Thromboplast Time Fibrinogen 151 Sodium Level 140 142 Potassium Level 3.5 3.6 Chloride Level 106 107 Carbon Dioxide Level 23.7 27.1 Anion Gap 10 8 Blood Urea Nitrogen 9 8 Creatinine 0.68 0.68 Estimat Glomerular Filtration 87 87 Rate Random Glucose 219 150 Lactic Acid Level 3.2 Calcium Level 6.5 7.0 Protein Corrected Calcium 7.8 8.4 Phosphorus Level 2.9 Magnesium Level 1.9 Total Protein 4.6 4.6 Result Diagram: 12/07/1629 12/07/1629 Imaging No Imaging studies performed. Assessment and Plan Assessment and Plan 1. Asthma by history to continue Bronchodilator, Mucolytic and incentive spirometry, early ambulation 2. Hyperlipidemia continue Crestor 5 mg at bedtime 3. Status post Exploratory Laparotomy with Pelvic Mass Resection, Sigmoidectomy and Colostomy by Dr. Jewell, Dr. Calix and Dr. Smith Prior Biopsy high grade Undifferentiated Malignant neoplasm. engagement specialist Doctor Corona Henry at [facility] 4. Hypothyroidism to continue Hormonal replacement now IV 5. Hypokalemia replaced and following 6. obesity strongly recommended Diet and exercise. PROPH: SCDs for DVT prophylaxis. Protonix 40 mg IV daily for stress ulcer prophylaxis. Full code Code Status Full code Discussed Condition With Patient and Nurse Avel Cao MD Dec 07, 2016 12:41
--- NOTE | 2016-12-07 13:32 | MP ---
cc: CELIA LEE,MARCOS CURRY MD DATE OF SURGERY 12/06/2016 PROCEDURE Repair of left internal iliac artery, vein and hypogastric artery primarily. SURGEON Fifi Valle, Saroj. INTRAVENOUS FLUIDS, ESTIMATED BLOOD LOSS, ANESTHESIA AND URINE OUTPUT All will be dictated in the main operative report. PROCEDURE This is a patient who was having resection for a tumor in the lower pelvis in which the primary surgeon called me for assistance for repair of surgical bleeding of the source of surgical bleeding in the pelvis. Whenever I entered the room, the patient was hemodynamically stable, being transfused, pressure was being applied and there was approximately 1.5 liters of blood loss up to this point. We slowly removed laparotomy pads as the patient's lower abdomen was fully exposed and, using a 4-0 Prolene with pledgeted sutures, I used a total of two in order to repair the internal iliac artery and vein. After I did this bleeding did stop and we did pack Surgicel into this area. There was also what appeared to be a small hole in the internal portion of the left hypogastric artery. It was also repaired with a 4-0 Prolene in a [id number]. At the end I did help out with some of the residual resection and there was no further bleeding. I allowed Dr. Calix an Dr. Lee to resect the tumor and finish the remaining portion of the operation. The patient tolerated this portion of the procedure being hemodynamically stable at that point and the rest of the operative report will be dictated by Dr. Lee. DO SARA oTussaint/ZACHARY /5:23 PM /1:25 PM
--- NOTE | 2016-12-07 14:14 | HHI.PR ---
Subjective Subjective Notes Resting in bed Nauseous at bedside Objective Vitals/I&O Vital Signs Date Time Temp Pulse Resp B/P Pulse Ox O2 Delivery O2 Flow Rate FiO2 12/07/16 11:58 97.4 72 16 108/53 96 12/07/16 09:36 Room Air 12/07/16 09:00 2 Labs Laboratory Tests Test 12/06/16 12/06/16 12/06/16 12/06/16 16:08 16:51 16:58 17:30 Blood Type A POSITIVE Crossmatch Leukocyte-Reduced Red Blood Cells Blood Bank Comment White Blood Count 14.0 Red Blood Count 3.26 Hemoglobin 9.2 Hematocrit 26.6 Mean Corpuscular Volume 81.8 Mean Corpuscular Hemoglobin 28.3 Mean Corpuscular Hemoglobin 34.6 Concent Red Cell Distribution Width 13.9 Platelet Count 173 Mean Platelet Volume 9.3 Neutrophils (%) (Auto) 89.4 Lymphocytes (%) (Auto) 7.1 Monocytes (%) (Auto) 3.1 Eosinophils (%) (Auto) 0.2 Basophils (%) (Auto) 0.2 Neutrophils # (Auto) 12.5 Lymphocytes # (Auto) 1.0 Monocytes # (Auto) 0.4 Eosinophils # (Auto) 0.0 Basophils # (Auto) 0.0 CBC Comment DIFF FINAL Differential Comment Blood Gas Puncture Site DRAWN IN OR Blood Gas Patient Temperature 98.6 Blood Gas HCO3 20 Blood Gas Base Excess -4.6 Blood Gas Oxygen Saturation 97 Arterial Blood pH 7.37 Arterial Blood Partial 35 Pressure CO2 Arterial Blood Partial 243 Pressure O2 Arterial Blood Oxygen Content 22.3 Arterial Blood 1.3 Carboxyhemoglobin Arterial Blood Methemoglobin 1.0 Blood Gas Hemoglobin 15.9 Oxygen Delivery Device OR Blood Gas Ventilator Setting OR Test 12/06/16 12/07/16 20:54 05:29 White Blood Count 13.3 12.1 Red Blood Count 3.72 3.23 Hemoglobin 10.3 9.1 Hematocrit 30.2 26.0 Mean Corpuscular Volume 81.1 80.4 Mean Corpuscular Hemoglobin 27.6 28.2 Mean Corpuscular Hemoglobin 34.1 35.0 Concent Red Cell Distribution Width 14.4 14.6 Platelet Count 134 127 Mean Platelet Volume 9.3 9.2 Prothrombin Time 11.7 Prothromb Time International 1.1 Ratio Activated Partial 19.7 Thromboplast Time Fibrinogen 151 Sodium Level 140 142 Potassium Level 3.5 3.6 Chloride Level 106 107 Carbon Dioxide Level 23.7 27.1 Anion Gap 10 8 Blood Urea Nitrogen 9 8 Creatinine 0.68 0.68 Estimat Glomerular Filtration 87 87 Rate Random Glucose 219 150 Lactic Acid Level 3.2 Calcium Level 6.5 7.0 Protein Corrected Calcium 7.8 8.4 Phosphorus Level 2.9 Magnesium Level 1.9 Total Protein 4.6 4.6 Neutrophils (%) (Auto) 86.3 Lymphocytes (%) (Auto) 6.6 Monocytes (%) (Auto) 7.0 Eosinophils (%) (Auto) 0.0 Basophils (%) (Auto) 0.1 Neutrophils # (Auto) 10.4 Lymphocytes # (Auto) 0.8 Monocytes # (Auto) 0.9 Eosinophils # (Auto) 0.0 Basophils # (Auto) 0.0 CBC Comment DIFF FINAL Differential Comment Cardiovascular: Regular Lungs: Clear Abdomen: Other (midline incision with DAMARIS (battery pack removed); colostomy with applicance in place--stoma pink; SOLO x1 with SS drainage; mildly distended ) , Post-op tenderness Extremities: No edema A/P Assessment and Plan 66 year old female POD1 ex lap; resection of pelvic mass with en block resection of sigmoid colon and distal rectum with end colostomy; left ureterolysis; repair of cystotomy; repair of internal left iliac vein; repair of vaginal cuff -NPO -Consult to Wound/Colostomy Nurse -DYE AND CHEMICAL COORDINATOR and [facility] for pain control -OOB -Await pathology results -Patient transferring to Medical/Surgical unit 7N when bed available Attending Statement The exam, history, and the medical decision-making described in the above note were completed with the assistance of the mid-level provider. I reviewed and agree with the findings presented. I attest that I had a [id number] encounter with the patient on the same day, and personally performed and documented my assessment and findings in the medical record. abdominal exam stable postop, HH stable, OOB, pain control, await bowel function Mila Dickerson Dec 07, 2016 14:14 Dada Kyle MD Dec 08, 2016 09:18
[2016-12-07] MEDS ORDERED: POTASSIUM CHLOR 20 MEQ PREMIX 100 ML IV ONE (15:00)
--- NOTE | 2016-12-07 15:40 | OTSOAPIP ---
TIME SESSION COMPLETED: PM TREATMENT TIME: 0 MINS. CHART REVIEWED. PATIENT WAS NOT AVAILABLE X2, FIRST WITH PHYSICAL THERAPY THE 2ND TIME WAS GETTING PREPARED TO BE TRANSFER TO ANOTHER UNIT. PLAN: WILL SEE PATIENT WHEN ABLE OR NEXT TREATMENT DAY . Therapist: AMY GOMEZ/Soumya Signature on file
[2016-12-07 17:23] VITALS: BP 97/51; PULSE 71; RESP 19; TEMP 98.2; O2SAT 95
--- NOTE | 2016-12-07 17:29 | EKG ---
Date Performed: 12/06/2016 Time Performed: 12:21:19 PTAGE: 66 years EKG: Sinus rhythm NORMAL ECG NO PREVIOUS TRACING DOCTOR: Landon Dorado Interpretating Date/Time 12/07/2016 17:27:56
[2016-12-07 20:00] VITALS: BP 111/52; PULSE 80; RESP 20; TEMP 98.7; O2SAT 96
[2016-12-07] MEDS: PANTOPRAZOLE SODIUM 40 MG VIAL IV SCH (22:54)
[2016-12-08] VITALS: BP 118/58; PULSE 76; RESP 20; TEMP 97; O2SAT 95
[2016-12-08] MEDS: MORPHINE SULFATE 30 MG/30 ML PCA IV SCH (00:21)
[2016-12-08] MEDS: ACETAMINOPHEN 1000 MG/100 ML VIAL IV SCH ×3 (02:48→14:25)
[2016-12-08] MEDS: LACTATED RINGER'S 1000 ML INJ 1,000 ML IV SCH ×3 (04:35→22:12)
[2016-12-08 05:45] LABS: REVIEW FLAG FINAL
[2016-12-08] MEDS: PCA - TOTAL MG MORPHINE DELIVERED PER SHIFT SCH ×3 (06:00→22:00)
[2016-12-08 06:07] LABS: BICARBONATE 27.7 MEQ/L (21.0-32.0); MAGNESIUM 2.1 MG/DL (1.5-2.5); POTASSIUM 3.8 MEQ/L (3.5-5.1)
[2016-12-08 06:23] LABS: CALCIUM-PROTEIN CORRECTED 8.6 MG/DL (8.5-10.1)
[2016-12-08] MEDS: LEVOTHYROXINE SODIUM 100 MCG VIAL IV PUSH SCH (06:37)
[2016-12-08] MEDS: INSULIN NovoLIN REGULAR SUPPLEMENTAL SCALE SQ SCH ×4 (06:37→21:00)
[2016-12-08] MEDS ORDERED: CALCIUM GLUCONATE INJ 2 GM in DEXTROSE 5% IN WATER 100ML INJ 100 ML IV ONE ×2 (07:00)
[2016-12-08] MEDS ORDERED: SODIUM PHOSPHATE INJ 30 MMOL in SODIUM CHLOR 0.9% 250 ML INJ 250 ML IV ONE (07:15)
[2016-12-08] MEDS: ALVIMOPAN 12 MG CAPSULE PO SCH ×2 (07:56→22:05)
[2016-12-08] MEDS: ONDANSETRON HCL 4 MG/2 ML VIAL IV PRN ×3 (07:57→22:06)
[2016-12-08] MEDS: SODIUM CHLORIDE 0.9% FLUSH 10 ML FLUSH IV FLUSH SCH ×2 (07:57→22:06)
[2016-12-08 08:00] VITALS: BP 108/59; PULSE 78; RESP 18; TEMP 97.9; O2SAT 96
--- NOTE | 2016-12-08 09:33 | HHI.PR ---
Subjective Subjective Notes Resting in bed Slept well last night Pain controlled Objective Vitals/I&O Vital Signs Date Time Temp Pulse Resp B/P Pulse Ox O2 Delivery O2 Flow Rate FiO2 12/08/16 08:00 97.9 78 18 108/59 96 12/07/16 22:45 Room Air 12/07/16 09:00 2 Labs Laboratory Tests Test 12/08/16 04:06 Hemoglobin 7.5 Hematocrit 22.0 Sodium Level 142 Potassium Level 3.8 Chloride Level 108 Carbon Dioxide Level 27.7 Anion Gap 6 Blood Urea Nitrogen 6 Creatinine 0.60 Estimat Glomerular Filtration 101 Rate Random Glucose 96 Calcium Level 7.2 Protein Corrected Calcium 8.6 Phosphorus Level 1.3 Magnesium Level 2.1 Total Protein 4.6 Cardiovascular: Regular Lungs: Clear Abdomen: Other (DAMARIS in place but battery pack removed due to malfunction--- minimal drainage on dressing; SOLO with SS drainage; Colostomy with pink stoma-- no stool or gas in collection bag ) Extremities: Other (minimall BLE edema ) A/P Assessment and Plan 66 year old female POD2 ex lap; resection of pelvic mass with en block resection of sigmoid colon and distal rectum with end colostomy; left ureterolysis; repair of cystotomy; repair of internal left iliac vein; repair of vaginal cuff -NPO---okay for a few ice chips -Consult to Wound/Colostomy Nurse -DOCUMENT MANAGEMENT TECHNICIAN and [facility] for pain control -OOB -Monitor Hmg---I will turn down fluids to 75 cc/hr -Await pathology results -Escobar must stay in place for atleast 1 week! Attending Statement Abdominal exam stable postop, stable, good UOP, pain controlled The exam, history, and the medical decision-making described in the above note were completed with the assistance of the mid-level provider. I reviewed and agree with the findings presented. I attest that I had a [id number] encounter with the patient on the same day, and personally performed and documented my assessment and findings in the medical record. Mila Dickerson Dec 08, 2016 09:33 Dada Kyle MD Dec 16, 2016 22:49
[2016-12-08] MEDS ORDERED: INFLUENZA VIRUS VACCINE (QUADRIVALENT) 0.5 ML SYR IM ONE (10:00)
--- NOTE | 2016-12-08 10:13 | HHI.PR ---
Subjective Remarks This is a pleasant 66 y/o Female with Asthma, Hyperlipidemia, Hyperthyroidism, who has been diagnosed with a Complex Left Pelvic mass, status post Exploratory laparotomy with Pelvic Mass resection, Sigmoidectomy and colostomy by Dr. Jewell, Dr. Calix and Dr. Smith. Had a routine airway for intubation. She received 7 L of crystalloid, 4 units packed red cells, when she had bleeding from deep in pelvis with resection of tumor, repaired left Hypogastric artery and left internal iliac vein, 12/08: Seen in her bedroom in the presence of nurse Miss Briggs and her present, also Ostomy nurse, not yet Colostomy working has some ecchymosis on the Right arm, her Phosphorus today 1.3 was replaced by nurse, Hemoglobin 7.5 considered dilutional by surgeon, stable at this time asymptomatic, No complaint. Objective Vital Signs Date Time Temp Pulse Resp B/P Pulse Ox O2 Delivery O2 Flow Rate FiO2 12/08/16 08:00 97.9 78 18 108/59 96 12/08/16 06:00 18 12/08/16 03:40 18 12/08/16 00:32 18 12/08/16 00:21 18 12/08/16 00:00 97.0 76 20 118/58 95 12/07/16 22:45 Room Air 12/07/16 22:00 18 12/07/16 20:00 98.7 80 20 111/52 96 12/07/16 17:23 98.2 71 19 97/51 95 12/07/16 15:47 Room Air 12/07/16 11:58 97.4 72 16 108/53 96 I/O 12/07/16 12/07/16 12/07/16 12/08/16 12/08/16 12/08/16 07:00 15:00 23:00 07:00 15:00 23:00 Intake Total 1675 ml 1341 ml 1027 ml 0 ml 1061 ml Output Total 1250 ml 150 ml 590 ml 600 ml 40 ml Balance 425 ml 1191 ml 437 ml -600 ml 1021 ml Intake Oral 0 ml 0 ml 0 ml 0 ml 0 ml IV Total 1341 ml 1027 ml 1061 ml Packed Cells 0 ml FFP 0 ml Other 1675 ml Output Urine Total 1200 ml 150 ml 450 ml 600 ml Stool Total 0 ml Drainage Total 50 ml 0 ml 140 ml 40 ml Estimated Blood Loss 0 ml # Bowel Movements 0 0 Result Diagram: 12/08/16 0406 12/08/16 0406 Imaging No Imaging studies Procedures Status post Exploratory Laparotomy with Pelvic Mass Resection, Sigmoidectomy and Colostomy by Dr. Jewell, Dr. Calix and Dr. Smith Other Results Laboratory Tests Test 12/06/16 12/06/16 12/06/16 12/06/16 13:17 16:08 16:51 17:30 Antibody Screen NEGATIVE Blood Type A POSITIVE Crossmatch Leukocyte-Reduced Red Blood Cells Blood Bank Comment Blood Gas Puncture Site DRAWN IN OR Blood Gas Patient Temperature 98.6 Blood Gas HCO3 20 mmol/L Blood Gas Base Excess -4.6 mmol/L Blood Gas Oxygen Saturation 97 % Arterial Blood pH 7.37 Arterial Blood Partial 35 mmHg Pressure CO2 Arterial Blood Partial 243 mmHg Pressure O2 Arterial Blood Oxygen Content 22.3 Vol % Arterial Blood 1.3 % Carboxyhemoglobin Arterial Blood Methemoglobin 1.0 % Blood Gas Hemoglobin 15.9 G/DL Oxygen Delivery Device OR Blood Gas Ventilator Setting OR Test 12/06/16 12/07/16 12/08/16 20:54 05:29 04:06 Prothrombin Time 11.7 SEC Prothromb Time International 1.1 RATIO Ratio Activated Partial 19.7 SEC Thromboplast Time Fibrinogen 151 mg/dL Lactic Acid Level 3.2 mmol/L White Blood Count 12.1 TH/MM3 Red Blood Count 3.23 MIL/MM3 Mean Corpuscular Volume 80.4 FL Mean Corpuscular Hemoglobin 28.2 PG Mean Corpuscular Hemoglobin 35.0 % Concent Red Cell Distribution Width 14.6 % Platelet Count 127 TH/MM3 Mean Platelet Volume 9.2 FL Neutrophils (%) (Auto) 86.3 % Lymphocytes (%) (Auto) 6.6 % Monocytes (%) (Auto) 7.0 % Eosinophils (%) (Auto) 0.0 % Basophils (%) (Auto) 0.1 % Neutrophils # (Auto) 10.4 TH/MM3 Lymphocytes # (Auto) 0.8 TH/MM3 Monocytes # (Auto) 0.9 TH/MM3 Eosinophils # (Auto) 0.0 TH/MM3 Basophils # (Auto) 0.0 TH/MM3 CBC Comment DIFF FINAL Differential Comment Hemoglobin 7.5 GM/DL Hematocrit 22.0 % Sodium Level 142 MEQ/L Potassium Level 3.8 MEQ/L Chloride Level 108 MEQ/L Carbon Dioxide Level 27.7 MEQ/L Anion Gap 6 MEQ/L Blood Urea Nitrogen 6 MG/DL Creatinine 0.60 MG/DL Estimat Glomerular Filtration 101 ML/MIN Rate Random Glucose 96 MG/DL Calcium Level 7.2 MG/DL Protein Corrected Calcium 8.6 MG/DL Phosphorus Level 1.3 MG/DL Magnesium Level 2.1 MG/DL Total Protein 4.6 GM/DL Objective Remarks GENERAL: Obesity, well-developed, No distress. HEAD: Atraumatic. Normocephalic. EYES: Pupils equal and round 3 mm and reactive bilaterally. ENT: No nasal bleeding or discharge. Mucous membranes pink and moist. NECK: Trachea midline. No JVD. CARDIOVASCULAR: Regular rate and rhythm, sinus rhythm on the monitor with rate in the 60s. No murmurs rubs or gallops. RESPIRATORY: No accessory muscle use. Clear to auscultation. Breath sounds equal bilaterally. On 2 L nasal cannula GASTROINTESTINAL: Abdomen soft, tender. Ostomy not yet working, SOLO drain in place. : Escobar in place with light yellow urine output. MUSCULOSKELETAL: Extremities without clubbing, cyanosis, or edema. No obvious deformities. NEUROLOGICAL: Awake and alert. No focal deficits. Medications and IVs Current Medications Medications (Trade) Dose Ordered Sig/Benedicto Route Start Time Stop Time Status Last Admin (Lr 1000 ml Inj) 1,000 ml @ 150 mls/hr Q6H40M IV 12/06/16 19:29 12/08/16 04:35 (NS Flush) 2 ml UNSCH PRN IV FLUSH 12/06/16 19:30 (NS Flush) 2 ml BID IV FLUSH 12/06/16 21:00 12/07/16 22:56 (Zofran Inj) 4 mg Q6H PRN IV 12/06/16 19:30 12/08/16 07:57 (Protonix Inj) 40 mg Q24H IV 12/06/16 21:00 12/07/16 22:54 (Benadryl Inj) 25 mg Q6H PRN IV 12/06/16 19:30 (Ofirmev Inj) 1,000 mg Q6H IV 12/06/16 20:00 12/08/16 14:01 12/08/16 07:57 (Narcan Inj) 0.4 mg UNSCH PRN IV 12/06/16 19:30 (Narcan Inj) 0.4 mg UNSCH PRN IV 12/06/16 19:30 (Morphine 1 Mg/ ml DAMPER WORKER) 30 mg UNSCH IV 12/06/16 19:30 12/08/16 00:21 DAMPER WORKER Dosage Infused (Pha) 1 Q8HR .XX 12/06/16 22:00 12/08/16 06:00 (D50w (Vial) Inj) 25 ml UNSCH PRN IV PUSH 12/06/16 19:30 (Glucagon Inj) 1 mg UNSCH PRN OTHER 12/06/16 19:30 (Entereg) 12 mg Q12HR PO 12/07/16 09:00 12/08/16 07:56 Levothyroxine Sodium 25 mcg 25 mcg DAILY@06 IV PUSH 12/08/16 06:00 12/08/16 06:37 (Sodium Phosphate Inj/NS 250 ml Inj) 260 ml @ 43.333 mls/ hr ONCE ONCE IV 12/08/16 07:15 12/08/16 13:14 12/08/16 08:36 A/P Assessment and Plan 1. Asthma by history to continue Bronchodilator, Mucolytic and incentive spirometry, early ambulation 2. Hyperlipidemia continue Crestor 5 mg at bedtime 3. Status post Exploratory Laparotomy with Pelvic Mass Resection, Sigmoidectomy and Colostomy by Dr. Jewell, Dr. Calix and Dr. Smith Prior Biopsy high grade Undifferentiated Malignant neoplasm. career specialist Doctor Corona Henry at [facility], hemoglobin today 7.5 considered dilutional by Surgeon following. Not yet working Ostomy. 4. Hypothyroidism to continue Hormonal replacement now IV 5. Hypokalemia replaced today 3.8, Phosphorus 1.3 received replacement, Magnesium 2.1 following. 6. obesity strongly recommended Diet and exercise. PROPH: SCDs for DVT prophylaxis. Protonix 40 mg IV daily for stress ulcer prophylaxis. Full code Code Status Full code Discussed Condition With Patient and Nurse Discharge Planning per Attending physician. Avel Cao MD Dec 08, 2016 10:13
[2016-12-08 12:00] VITALS: BP 106/63; PULSE 76; RESP 19; TEMP 97.5; O2SAT 97
--- NOTE | 2016-12-08 14:38 | MB ---
cc: GOPI PITTS MD DATE OF CONSULTATION 12/07/16 REASON FOR CONSULTATION 1. Status post left ureteral stent insertion. 2. Bladder cystotomy. 3. Status post Ex Lap with resection of pelvic mass. HISTORY OF PRESENT ILLNESS The patient is a pleasant 66-year-old female who underwent insertion of the left ureteral stent by Dr. Prajapati several weeks ago at [facility]. The patient yesterday underwent a exploratory laparotomy and a resection of a large pelvic mass by Dr. Kyle, Dr. Calix and Dr. Smith. During the procedure a small cystotomy was made in the bladder which was subsequently closed by the general surgeon. Urology was consulted for management of left ureteral stent. Currently, the patient is doing well. Her pain is well-controlled. She denies nausea, vomiting, fevers or chills. She was tolerating the stent quite well other than some urinary urgency and frequency. Denies any hematuria or any recent urinary tract infections. ALLERGIES SULFA. PAST MEDICAL HISTORY Asthma, hyperlipidemia, hypothyroidism, migraines, uterine fibroids, endometriosis, osteoarthritis of both knees. PAST SURGICAL HISTORY Appendectomy, cholecystectomy, hysterectomy. A pyloromyotomy for pyloric stenosis. MEDICATIONS Medications include: 1. Ventolin. 2. Calcium. 3. Crestor. 4. Synthroid. FAMILY HISTORY Negative for genitourinary malignancies. HISTORY She denies smoking tobacco or drugs. 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 PHYSICAL EXAMINATION VITAL SIGNS: Temperature 98.2, pulse 81, respirations 19, BP 97/51. GENERAL: She is alert and oriented times three. No apparent distress. Pleasant, cooperative lady, appears her stated age. HEENT: Head is normocephalic, atraumatic. Neck is supple. Trachea is midline. No JVD. Eyes: No scleral icterus. Extraocular muscles intact. SKIN: No ulcers or rashes. LUNGS: Clear to auscultation bilaterally. No wheezes, rales or rhonchi. HEART: Regular rhythm. No murmurs. ABDOMEN: Soft, appropriately tender nondistended. Colostomy pink and healthy. EXTREMITIES: Nontender. No clubbing, cyanosis or edema. GENITOURINARY EXAMINATION: Pelvic exam deferred. ____ tenderness bilaterally. PSYCH: Normal affect. LABORATORY DATA Labs show a white count of 12.1, hemoglobin 9.1, hematocrit 26.0, platelet count 127, sodium 142, potassium 3.8, chloride 108, bicarb 27.7, BUN 6, creatinine 0.60. IMAGING STUDIES None. ASSESSMENT The patient is a 66-year-old female status post ex lap with excision of pelvic mass with repair of bladder cystotomy and indwelling left ureteral stent. PLAN 1. Recommend continuing the ureteral stent for several weeks, then can be removed as an outpatient with by Dr. Prajapati 2. Due to the reported bladder cystotomy we recommend leaving Escobar catheter in for 1 week and a cystogram prior to removal. Thank you for this consultation. Please call with any questions, available as needed. Gopi Pitts MD EMF/RENETTA /1:41 PM /2:12 PM DAVIE
[2016-12-08 16:00] VITALS: BP 125/68; PULSE 76; RESP 20; TEMP 98.1; O2SAT 99
--- NOTE | 2016-12-08 16:28 | MP ---
cc: CELIA LEE DATE OF SURGERY: 12/06/2016. PREOPERATIVE DIAGNOSIS: Pelvic mass, gynecologic versus urologic malignancy involving the left ureter and sigmoid colon. 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 OPERATIVE PROCEDURE PERFORMED: 1. Exploratory laparotomy 2. Resection of abdominal and pelvic tumor with en bloc resection of the sigmoid colon and distal rectum with end colostomy. 3. Peritoneal biopsy. 4. Left ureterolysis. 5. Repair of cystotomy. 6. Repair and closure of vaginal cuff (performed by Dr. Calix). 7. Repair of left internal iliac vein and branches (Dr. Smith). ANESTHESIA: General and regional block. ATTENDING SURGEON: Celia Lee M.D. ASSISTANTS: ANGELA Barba. INTRAOPERATIVE CONSULTATION: 1. Summer Calix MD. 2.Robert Smith MD vascular surgery. ESTIMATED BLOOD LOSS: 2 liters. BLOOD REPLACED: 4 liters of fresh frozen plasma. COMPLICATIONS: Some bleeding from left hypogastric vein and branches primarily repaired by vascular surgery. FINDINGS: 1. Carcinomatosis, low volume involving pelvic sidewall and intestine. 2. Large pelvic mass directly invading sigmoid colon, proximal rectum, vaginal cuff and bladder wall as well as branches of the left internal iliac vein. INDICATIONS FOR THE PROCEDURE: The patient is a 56-year-old female who developed pelvic pain. The patient underwent evaluation including admission to [facility] and was noted to have a left-sided adnexal type mass that was causing obstruction of her colon and left ureter. The patient had colonoscopy which showed this was an extrinsic compression of the colon and a stent was also placed in the left ureter for a decompression of hydronephrosis. The patient underwent a biopsy which was inconclusive but was consistent with either a urologic or MANAGER INTERNET etiology. We discussed the potential management with the patient and the tumor board at [facility] and it was felt that primary resection was indicated as did not have a definitive diagnosis and neoadjuvant therapy would be uncertain in response. This was discussed with the patient and her including the risks, benefits, alternatives to this approach and they agreed to undergo the procedure. DESCRIPTION OF THE PROCEDURE IN DETAIL: Informed consent was obtained and the patient was taken to the operating room and placed in a supine position and placed under general endotracheal anesthesia. The patient's abdomen was prepped and draped in the usual sterile fashion. A time out was performed. The abdomen was entered through a lower midline incision from above the umbilicus to down to the pubic bone with the 10-blade scalpel. Bovie electrocautery was used to dissect the subcutaneous tissue and open the midline fascia through the entire length of the incision. An extra-large wound protector and a Bookwalter retractor were used to gain better exposure. We did lyse a few small adhesions on the way in without difficulty. We were then able to back up our small bowel out of range into the upper abdomen. We then turned attention to insufflation. The tumor was clearly adhered to the posterior bladder and the pelvic sidewall more anteriorly but was relatively free posteriorly and laterally. The sigmoid colon was densely involved with this mass and there was really no way the colon could be dissected free from the mass. Some areas were completely enveloped in the sigmoid colon. There was also hydronephrosis in the ureter noted with the stents. There was also a small volume of carcinomatosis most of which was removed as far as the5 mm or larger tumor sightings were all removed from the cecum, small bowel and peritoneal side wall of the pelvis. The stomach and liver and other viscera all appeared normal. We did start our dissection dividing the mid sigmoid colon. We mobilized the white line of Toldt laterally and divided this with the blue load on the Sanctuary stapler. We then dissected the mesentery down and took the superior rectal artery with an Enseal device. We continued our dissection identifying both ureters. We did perform a ureterolysis on the left side as the tumor was just abutting the ureter but the ureter was essentially non-invaded and just compressed by the tumor. We continued to mobilize the tumor from posteriorly as we proceeded in the presacral space and dissected laterally off the tumor. I did have some bleeding from the patient's left side. We did at this point in time gain better exposure and did debulk a portion of the tumor off and sent this as specimen in order to get better exposure. We did ask Dr. Smith of vascular surgery to come and evaluate this bleeding and this was found to be from small branches from the hypogastric vein that were entering the tumor that were bleeding. He was able to repair this without difficulty. We then continued with our dissection. We were able to do a dissection on the anterior approach which lead us down to the bladder. A small area of the bladder dome portion was resected so as to not to necessarily gain margins but just to ensure that the mass was removed in a safe plane. Also we continued down. There was vaginal cuff noted again. The vaginal cuff was completely fused to this tumor and a small area of the cuff was also taken using the Bovie electrocautery to free this from the tumor. Once we were completely free of this, we continued dissection with the Enseal device on the perirectal space to free up the proximal rectum and there was only the proximal rectum keeping the tumor into the patient. We then used a green load on the contour stapler to divide the rectum leaving a good stapled rectal stump. The specimen was passed off for permanent section. At this point in time, we then irrigated out the pelvis until all suctioning was clear. There were small areas of oozing at some remaining areas of tumor studding as well as a small area of tumor capsule that was on the pelvic sidewall. We continued our dissection. We were able to remove all this eventually and get excellent hemostasis with the use of some hemostatic agents, Evarrest and FloSeal. At this point in time, Dr. Calix, who had come in to assist, was able to identify the proximal vaginal cuff and he was able to repair this. Please see his separate documentation. This was repaired with running Vicryl. At this point in time, Dr. Calix also assisted me with the repair of the bladder. We did fill the bladder with some methylene blue that did show a small cystotomy again just above the vaginal cuff and this was repaired with interrupted 3-0 Vicryl sutures. Follow up methylene blue test with distention of the bladder showed no leaking. At this point in time, we ultimately performed an optimal type debulking surgery by removing any gross disease in the pelvis and there was only some residual tumor capsule up against the left pelvic side wall with no gross tumor into the pelvis or the patient larger than just a few millimeters. We turned our attention towards closure. We placed a 19-Danish round Pravin drain looped into the pelvis and brought out through a separate stab incision. This was sutured in place with a nylon suture. We then performed a colostomy and did not perform primary anastomosis due to the patient with long operation, blood loss as well as the risk of having recurrent tumor in the pelvis and also the increased risk of performing an LAR type re-anastomosis. It was felt it was in the patient's best interest to close the patient with an end colostomy at this time. I did make a colostomy excision of skin to the left of the midline and made a cruciate incision in the anterior rectus sheath, spread the rectus muscles and opened the posterior rectus sheath and peritoneum all with the bovie electrocautery. We placed our distal colon through this without difficulty with no tension. We then turned our attention towards closure. All bowel was removed back to its normal anatomic location. We were able to close the midline with a #1 looped PDS suture. We were able to close the skin easily with brittaney and a DAMARIS dressing was applied. At this point in time, we did brook our colostomy with 4-0 Vicryl sutures and the ostomy appliance was applied. ANGELA Barba was present for the above procedures with the exception of the vascular repair and the endovaginal cuff repair as Dr. Calix and Dr. Smith who were just intraoperative consultations and were not available to assist with the majority of the case. This required ANGELA Barba as my cement tester assistant due to the complexity of the tumor and for the safe and expedient operation of this patient. The patient was taken to the post-anesthesia care unit in stable condition. There were no apparent complications other than some more than anticipated bleeding from the tumor due to its vascular invasion. The patient tolerated the procedure well. I was present and scrubbed for the entire procedure. All counts were correct. MD BABAK Ball/BEBETO /8:12 PM /3:54 PM DAVIE
--- NOTE | 2016-12-08 16:32 | OTSOAPIP ---
TIME SESSION COMPLETED: 1630 TREATMENT TIME: 0 MINS. CHART REVIEWED. S: PAIN: O: ATTEMPTED TO EVALUATE BUT PATIENT REPORTS BETWEEN PAIN AND MENTALLY PREPARING HERSELF FOR OSTOMY CARE IS VERY DEPRESSING. A: PATIENT RESPONSE TO TREATMENT:REQUESTS OCCUPATIONAL THERAPY TO ATTEMPT ON Sunday12/11/16 P: DID NOT EVALUATE THIS DATE _X_ PT WAS INSTRUCTED TO NOT GET OUT OF BED OR CHAIR WITHOUT ASSISTANCE. CALL IZQUIERDO WAS LEFT WITHIN REACH. DISABILITIES ELEMENTS SCORE - [id number] ____ 4 = INDEPENDENT: EATS FROM A DISH AND DRINKS FROM A CUP OR GLASS PRESENTED IN THE CUSTOMARY MANNER ON TABLE OR TRAY. USES ORDINARY KNIFE, FORK, AND SPOON. ____ 3 = INDEPENDENT WITH DEVICE: USES AN ADAPTIVE OR ASSISTING DEVICE SUCH A STRAW, SPORK, OR ROCKING KNIFE OR REQUIRES MORE THAN A REASONABLE TIME TO EAT. ____ 2 = DEPENDENT - PARTIAL HELP REQUIRED: PERFORMS HALF OR MORE OF FEEDING TASKS BUT REQUIRES SUPERVISION (E.G., STANDBY, CUEING, OR COAXING), SETUP (APPLICATION OF ORTHOTICS), OR OTHER HELP. ____ 1 = DEPENDENT - TOTAL HELP REQUIRED: EITHER PERFORMS LESS THAN HALF OF FEEDING TASKS, OR DOES NOT EAT OR DRINK FULL MEALS BY MOUTH AND RELIES AT LEAST IN PART ON OTHER MEANS OF ALIMENTATION, SUCH PARENTERAL OR GASTROSTOMY FEEDINGS. INTERDISCIPLINARY COMMUNICATION:INFORMED RN Therapist: Ranjana Rolle OTR/L Signature on file
[2016-12-08 20:28] VITALS: BP 136/66; PULSE 70; RESP 18; TEMP 97.9; O2SAT 97
[2016-12-08] MEDS: PANTOPRAZOLE SODIUM 40 MG VIAL IV SCH (22:06)
[2016-12-08] MEDS: ATORVASTATIN 10 MG TAB PO SCH (22:06)
[2016-12-09 00:20] VITALS: BP 128/61; PULSE 80; RESP 17; TEMP 97.9; O2SAT 96
[2016-12-09] MEDS: MORPHINE SULFATE 30 MG/30 ML PCA IV SCH (02:44)
[2016-12-09 04:27] VITALS: BP 115/57; PULSE 80; RESP 18; TEMP 98.7; O2SAT 98
[2016-12-09] MEDS: PCA - TOTAL MG MORPHINE DELIVERED PER SHIFT SCH ×3 (06:00→22:00)
[2016-12-09 06:06] LABS: AUTOMATED NEUTROPHIL # 5.9 TH/MM3 (1.8-7.7); BASOPHIL % 0.5 % (0.0-2.0); EOSINOPHIL # 0.2 TH/MM3 (0-0.4); EOSINOPHIL % 2.5 % (0.0-4.0); HEMATOCRIT 21.9 % (35.0-46.0); HEMO FLAGS DIFF FINAL; LYMPH % 20.6 % (9.0-44.0); LYMPHOCYTE # 1.8 TH/MM3 (1.0-4.8); MEAN CELL VOLUME 82.8 FL (80.0-100.0); MEAN CORPUSCULAR HEMOGLOBIN 28.6 PG (27.0-34.0); MEAN CORPUSCULAR HGB CONC 34.6 % (32.0-36.0); MONO % 7.7 % (0.0-8.0); NEUT % 68.7 % (16.0-70.0); PLATELET COUNT 135 TH/MM3 (150-450); RED BLOOD COUNT 2.64 MIL/MM3 (4.00-5.30); RED CELL DISTRIBUTION WIDTH 14.5 % (11.6-17.2); WHITE BLOOD COUNT 8.7 TH/MM3 (4.0-11.0)
[2016-12-09 06:18] LABS: BICARBONATE 28.2 MEQ/L (21.0-32.0); POTASSIUM 3.4 MEQ/L (3.5-5.1)
[2016-12-09] MEDS: LEVOTHYROXINE SODIUM 100 MCG VIAL IV PUSH SCH (06:31)
[2016-12-09] MEDS: INSULIN NovoLIN REGULAR SUPPLEMENTAL SCALE SQ SCH ×4 (06:35→21:00)
[2016-12-09 08:00] VITALS: BP 115/68; PULSE 83; RESP 20; TEMP 98.5; O2SAT 96
[2016-12-09] MEDS ORDERED: POTASSIUM CHLORIDE 20 MEQ CONTROLLED RELEASE TAB PO ONE (09:00)
[2016-12-09] MEDS: ALVIMOPAN 12 MG CAPSULE PO SCH ×2 (09:34→22:15)
[2016-12-09] MEDS: SODIUM CHLORIDE 0.9% FLUSH 10 ML FLUSH IV FLUSH SCH ×2 (09:47→21:00)
[2016-12-09] MEDS: LACTATED RINGER'S 1000 ML INJ 1,000 ML IV SCH ×2 (09:48→22:15)
--- NOTE | 2016-12-09 10:39 | HHI.PR ---
Subjective Remarks This is a pleasant 66 y/o Female with Asthma, Hyperlipidemia, Hyperthyroidism, who has been diagnosed with a Complex Left Pelvic mass, status post Exploratory laparotomy with Pelvic Mass resection, Sigmoidectomy and colostomy by Dr. Jewell, Dr. Calix and Dr. Smith. Had a routine airway for intubation. She received 7 L of crystalloid, 4 units packed red cells, when she had bleeding from deep in pelvis with resection of tumor, repaired left Hypogastric artery and left internal iliac vein, 12/08: Phosphorus today 1.3 was replaced by nurse, Hemoglobin 7.5 considered dilutional by Surgeon, stable at this time asymptomatic, No complaint. 12/09: Seen in her bedroom and discussed with nurse Miss Eckert and her Mr. Gaines, complaint of Headache, will help with Venofer for three days, Potassium replaced and Phosphorus. Objective Vital Signs Date Time Temp Pulse Resp B/P Pulse Ox O2 Delivery O2 Flow Rate FiO2 12/09/16 08:00 98.5 83 20 115/68 96 12/09/16 06:00 18 12/09/16 04:27 98.7 80 18 115/57 98 12/09/16 03:23 18 12/09/16 02:44 18 12/09/16 00:20 97.9 80 17 128/61 96 12/08/16 22:00 18 12/08/16 20:28 97.9 70 18 136/66 97 12/08/16 16:00 98.1 76 20 125/68 99 12/08/16 14:00 15 12/08/16 12:00 97.5 76 19 106/63 97 I/O 12/08/16 12/08/16 12/08/16 12/09/16 12/09/16 12/09/16 07:00 15:00 23:00 07:00 15:00 23:00 Intake Total 0 ml 1728 ml 600 ml 619 ml Output Total 600 ml 620 ml 330 ml 1050 ml 40 ml Balance -600 ml 1108 ml 270 ml -1050 ml 579 ml Intake Oral 0 ml 120 ml IV Total 1608 ml 600 ml 619 ml Output Urine Total 600 ml 400 ml 300 ml 1000 ml Stool Total 0 ml 0 ml 50 ml 0 ml Drainage Total 220 ml 30 ml 40 ml # Bowel Movements 0 Result Diagram: 12/09/16 0507 12/09/16 0507 Imaging No Imaging studies performed. Procedures Status post Exploratory Laparotomy with Pelvic Mass Resection, Sigmoidectomy and Colostomy by Dr. Jewell, Dr. Calix and Dr. Smith Other Results Laboratory Tests Test 12/06/16 12/06/16 12/06/16 12/06/16 13:17 16:08 16:51 17:30 Antibody Screen NEGATIVE Blood Type A POSITIVE Crossmatch Leukocyte-Reduced Red Blood Cells Blood Bank Comment Blood Gas Puncture Site DRAWN IN OR Blood Gas Patient Temperature 98.6 Blood Gas HCO3 20 mmol/L Blood Gas Base Excess -4.6 mmol/L Blood Gas Oxygen Saturation 97 % Arterial Blood pH 7.37 Arterial Blood Partial 35 mmHg Pressure CO2 Arterial Blood Partial 243 mmHg Pressure O2 Arterial Blood Oxygen Content 22.3 Vol % Arterial Blood 1.3 % Carboxyhemoglobin Arterial Blood Methemoglobin 1.0 % Blood Gas Hemoglobin 15.9 G/DL Oxygen Delivery Device OR Blood Gas Ventilator Setting OR Test 12/06/16 12/08/16 12/09/16 20:54 04:06 05:07 Prothrombin Time 11.7 SEC Prothromb Time International 1.1 RATIO Ratio Activated Partial 19.7 SEC Thromboplast Time Fibrinogen 151 mg/dL Lactic Acid Level 3.2 mmol/L Protein Corrected Calcium 8.6 MG/DL Magnesium Level 2.1 MG/DL Total Protein 4.6 GM/DL White Blood Count 8.7 TH/MM3 Red Blood Count 2.64 MIL/MM3 Hemoglobin 7.6 GM/DL Hematocrit 21.9 % Mean Corpuscular Volume 82.8 FL Mean Corpuscular Hemoglobin 28.6 PG Mean Corpuscular Hemoglobin 34.6 % Concent Red Cell Distribution Width 14.5 % Platelet Count 135 TH/MM3 Mean Platelet Volume 9.9 FL Neutrophils (%) (Auto) 68.7 % Lymphocytes (%) (Auto) 20.6 % Monocytes (%) (Auto) 7.7 % Eosinophils (%) (Auto) 2.5 % Basophils (%) (Auto) 0.5 % Neutrophils # (Auto) 5.9 TH/MM3 Lymphocytes # (Auto) 1.8 TH/MM3 Monocytes # (Auto) 0.7 TH/MM3 Eosinophils # (Auto) 0.2 TH/MM3 Basophils # (Auto) 0.0 TH/MM3 CBC Comment DIFF FINAL Differential Comment Sodium Level 142 MEQ/L Potassium Level 3.4 MEQ/L Chloride Level 104 MEQ/L Carbon Dioxide Level 28.2 MEQ/L Anion Gap 10 MEQ/L Blood Urea Nitrogen 3 MG/DL Creatinine 0.53 MG/DL Estimat Glomerular Filtration 116 ML/MIN Rate Random Glucose 83 MG/DL Calcium Level 7.8 MG/DL Phosphorus Level 2.3 MG/DL Objective Remarks GENERAL: Obesity, well-developed, No distress. HEAD: Atraumatic. Normocephalic. EYES: Pupils equal and round 3 mm and reactive bilaterally. ENT: No nasal bleeding or discharge. Mucous membranes pink and moist. NECK: Trachea midline. No JVD. CARDIOVASCULAR: Regular rate and rhythm, sinus rhythm on the monitor with rate in the 60s. No murmurs rubs or gallops. RESPIRATORY: No accessory muscle use. Clear to auscultation. Breath sounds equal bilaterally. On 2 L nasal cannula GASTROINTESTINAL: Abdomen soft, tender. Ostomy working, SOLO drain in place. : Escobar in place with light yellow urine output. MUSCULOSKELETAL: Extremities without clubbing, cyanosis, or edema. No obvious deformities. NEUROLOGICAL: Awake and alert. No focal deficits. Medications and IVs Current Medications Medications (Trade) Dose Ordered Sig/Benedicto Route Start Time Stop Time Status Last Admin (Lr 1000 ml Inj) 1,000 ml @ 75 mls/hr [id number] IV 12/06/16 19:29 12/09/16 09:48 (NS Flush) 2 ml UNSCH PRN IV FLUSH 12/06/16 19:30 (NS Flush) 2 ml BID IV FLUSH 12/06/16 21:00 12/09/16 09:47 (Zofran Inj) 4 mg Q6H PRN IV 12/06/16 19:30 12/08/16 22:06 (Protonix Inj) 40 mg Q24H IV 12/06/16 21:00 12/08/16 22:06 (Benadryl Inj) 25 mg Q6H PRN IV 12/06/16 19:30 (Narcan Inj) 0.4 mg UNSCH PRN IV 12/06/16 19:30 (Morphine 1 Mg/ ml TEACHER SPECIALIST) 30 mg UNSCH IV 12/06/16 19:30 12/09/16 02:44 TEACHER SPECIALIST Dosage Infused (Pha) 1 Q8HR .XX 12/06/16 22:00 12/09/16 06:00 (D50w (Vial) Inj) 25 ml UNSCH PRN IV PUSH 12/06/16 19:30 (Glucagon Inj) 1 mg UNSCH PRN OTHER 12/06/16 19:30 (Entereg) 12 mg Q12HR PO 12/07/16 09:00 12/09/16 09:34 (Synthroid Inj) 25 mcg DAILY@06 IV PUSH 12/08/16 06:00 12/09/16 06:31 (Lipitor) 10 mg HS PO 12/08/16 21:00 12/08/16 22:06 A/P Assessment and Plan 1. Asthma by history to continue Bronchodilator, Mucolytic and incentive spirometry, early ambulation 2. Hyperlipidemia continue Crestor 5 mg at bedtime 3. Status post Exploratory Laparotomy with Pelvic Mass Resection, Sigmoidectomy and Colostomy by Dr. Jewell, Dr. Calix and Dr. Smith Prior Biopsy high grade Undifferentiated Malignant neoplasm. critical care nurse specialist Doctor Corona Henry at [facility], hemoglobin today 7.6 considered dilutional by Surgeon following. Ostomy working. added Venofer for three days. 4. Hypothyroidism to continue Hormonal replacement now IV 5. Electrolyte derangement replaced. 6. obesity strongly recommended Diet and exercise. PROPH: SCDs for DVT prophylaxis. Protonix 40 mg IV daily for stress ulcer prophylaxis. Code Status Full code Discussed Condition With Patient and Nurse Discharge Planning per Attending physician. Avel Cao MD Dec 09, 2016 10:39
[2016-12-09] MEDS ORDERED: ACETAMINOPHEN 650 MG SUPP RECTAL PRN (10:45)
[2016-12-09] MEDS ORDERED: POTASSIUM PHOSPHATE INJ 15 MMOL in SODIUM CHLORIDE 0.9% INJ 150 ML IV ONE (10:45)
[2016-12-09] MEDS: IRON SUCROSE INJ 100 MG in SODIUM CHLORIDE 0.9% INJ 100 ML IV SCH (11:24)
[2016-12-09 12:00] VITALS: BP 136/78; PULSE 79; RESP 19; TEMP 98.1; O2SAT 97
[2016-12-09] MEDS ORDERED: SODIUM PHOSPHATE INJ 15 MMOL in SODIUM CHLORIDE 0.9% INJ 150 ML IV ONE (13:00)
[2016-12-09 16:00] VITALS: BP 140/66; PULSE 89; RESP 17; TEMP 98.7; O2SAT 97
--- NOTE | 2016-12-09 16:35 | HHI.PR ---
Subjective Subjective Notes Feels ok; states she has a migraine trying to come through; hasn't had one in years, but noted the "aura" last night. Wants to have something for this. Objective Vitals/I&O Vital Signs Date Time Temp Pulse Resp B/P Pulse Ox O2 Delivery O2 Flow Rate FiO2 12/09/16 14:00 16 12/09/16 12:00 98.1 79 136/78 97 12/07/16 22:45 Room Air 12/07/16 09:00 2 Labs Laboratory Tests Test 12/09/16 05:07 White Blood Count 8.7 Red Blood Count 2.64 Hemoglobin 7.6 Hematocrit 21.9 Mean Corpuscular Volume 82.8 Mean Corpuscular Hemoglobin 28.6 Mean Corpuscular Hemoglobin 34.6 Concent Red Cell Distribution Width 14.5 Platelet Count 135 Mean Platelet Volume 9.9 Neutrophils (%) (Auto) 68.7 Lymphocytes (%) (Auto) 20.6 Monocytes (%) (Auto) 7.7 Eosinophils (%) (Auto) 2.5 Basophils (%) (Auto) 0.5 Neutrophils # (Auto) 5.9 Lymphocytes # (Auto) 1.8 Monocytes # (Auto) 0.7 Eosinophils # (Auto) 0.2 Basophils # (Auto) 0.0 CBC Comment DIFF FINAL Differential Comment Sodium Level 142 Potassium Level 3.4 Chloride Level 104 Carbon Dioxide Level 28.2 Anion Gap 10 Blood Urea Nitrogen 3 Creatinine 0.53 Estimat Glomerular Filtration 116 Rate Random Glucose 83 Calcium Level 7.8 Phosphorus Level 2.3 Lungs: Clear Abdomen: Non-distended, Other (Colostomy functioning) Narrative Exam DAMARIS dressing intact; will need to be changed tomorrow A/P Assessment and Plan Assessment and Plan 66 year old female POD #2 ex lap; resection of pelvic mass with en block resection of sigmoid colon and distal rectum with end colostomy; left ureterolysis; repair of cystotomy; repair of internal left iliac vein; repair of vaginal cuff -Will start clear liquids; pt. does not want anything more yet -GANG BOSS and Ofirmev for pain control -OOB -Hb stable -Await pathology results -Keep Escobra in place x 10 days Frankie Jang MD Dec 09, 2016 16:35
[2016-12-09] MEDS: SUMAtriptan SUCCINATE 50 MG TAB PO PRN (17:16)
[2016-12-09 20:00] VITALS: BP 136/63; PULSE 82; RESP 17; TEMP 98.2; O2SAT 96
[2016-12-09] MEDS: PANTOPRAZOLE SODIUM 40 MG VIAL IV SCH (21:00)
[2016-12-09] MEDS: ATORVASTATIN 10 MG TAB PO SCH (22:15)
[2016-12-10 00:27] VITALS: BP 126/66; PULSE 82; RESP 17; TEMP 98.4; O2SAT 98
[2016-12-10 04:05] VITALS: BP 118/61; PULSE 72; RESP 16; TEMP 97.7; O2SAT 97
[2016-12-10] MEDS: LEVOTHYROXINE SODIUM 100 MCG VIAL IV PUSH SCH (05:39)
[2016-12-10 05:41] LABS: BASOPHIL % 0.6 % (0.0-2.0); EOSINOPHIL # 0.3 TH/MM3 (0-0.4); HEMATOCRIT 22.8 % (35.0-46.0); HEMO FLAGS DIFF FINAL; LYMPH % 26.7 % (9.0-44.0); LYMPHOCYTE # 1.8 TH/MM3 (1.0-4.8); MEAN CELL VOLUME 81.7 FL (80.0-100.0); MEAN CORPUSCULAR HEMOGLOBIN 28.6 PG (27.0-34.0); NEUT % 59.7 % (16.0-70.0); PLATELET COUNT 150 TH/MM3 (150-450); RED BLOOD COUNT 2.79 MIL/MM3 (4.00-5.30); RED CELL DISTRIBUTION WIDTH 14.5 % (11.6-17.2); WHITE BLOOD COUNT 6.6 TH/MM3 (4.0-11.0)
[2016-12-10 05:47] LABS: POTASSIUM 3.2 MEQ/L (3.5-5.1)
[2016-12-10] MEDS: PCA - TOTAL MG MORPHINE DELIVERED PER SHIFT SCH ×3 (06:00→21:03)
[2016-12-10] MEDS: INSULIN NovoLIN REGULAR SUPPLEMENTAL SCALE SQ SCH ×4 (06:24→21:00)
[2016-12-10 08:00] VITALS: BP 120/59; PULSE 84; RESP 16; TEMP 97.6; O2SAT 93
[2016-12-10] MEDS: ALVIMOPAN 12 MG CAPSULE PO SCH ×2 (09:14→20:57)
[2016-12-10] MEDS: SODIUM CHLORIDE 0.9% FLUSH 10 ML FLUSH IV FLUSH SCH ×2 (09:15→20:57)
[2016-12-10] MEDS: LACTATED RINGER'S 1000 ML INJ 1,000 ML IV SCH (09:19)
--- NOTE | 2016-12-10 09:19 | HHI.PR ---
Subjective Remarks This is a pleasant 66 y/o Female with Asthma, Hyperlipidemia, Hyperthyroidism, who has been diagnosed with a Complex Left Pelvic mass, status post Exploratory laparotomy with Pelvic Mass resection, Sigmoidectomy and colostomy by Dr. Jewell, Dr. Calix and Dr. Smith. Had a routine airway for intubation. She received 7 L of crystalloid, 4 units packed red cells, when she had bleeding from deep in pelvis with resection of tumor, repaired left Hypogastric artery and left internal iliac vein, 12/08: Phosphorus today 1.3 was replaced by nurse, Hemoglobin 7.5 considered dilutional by Surgeon, stable at this time asymptomatic, No complaint. 12/09: Seen in her bedroom and discussed with nurse Miss Eckert and her Mr. Gaines, complaint of Headache, will help with Venofer for three days, Potassium replaced and Phosphorus. 12/10: Seen in her bedroom in the presence of her , asked for her Home medicines, Imitrex Levothyroxine, seen with nurse Miss Eckert Colostomy working well, No Nausea, vomit or diarrhea, Objective Vital Signs Date Time Temp Pulse Resp B/P Pulse Ox O2 Delivery O2 Flow Rate FiO2 12/10/16 08:00 97.6 84 16 120/59 93 12/10/16 06:00 18 12/10/16 04:05 97.7 72 16 118/61 97 12/10/16 00:27 98.4 82 17 126/66 98 12/09/16 22:00 18 12/09/16 20:00 98.2 82 17 136/63 96 12/09/16 16:00 98.7 89 17 140/66 97 12/09/16 14:00 16 12/09/16 12:00 98.1 79 19 136/78 97 I/O 12/09/16 12/09/16 12/09/16 12/10/16 12/10/16 12/10/16 07:00 15:00 23:00 07:00 15:00 23:00 Intake Total 1290 ml 811 ml 855 ml Output Total 1050 ml 1805 ml 540 ml 1560 ml Balance -1050 ml -515 ml 271 ml -705 ml Intake Oral 0 ml 280 ml 280 ml IV Total 1290 ml 531 ml 575 ml Output Urine Total 1000 ml 1575 ml 500 ml 1500 ml Stool Total 50 ml 50 ml 10 ml 10 ml Drainage Total 180 ml 30 ml 50 ml Result Diagram: 12/10/16 0443 12/10/16 044 Imaging No Imaging studies performed. Procedures Status post Exploratory Laparotomy with Pelvic Mass Resection, Sigmoidectomy and Colostomy by Dr. Jewell, Dr. Calix and Dr. Smith Other Results Laboratory Tests Test 12/06/16 12/06/16 12/06/16 12/06/16 13:17 16:08 16:51 17:30 Antibody Screen NEGATIVE Blood Type A POSITIVE Crossmatch Leukocyte-Reduced Red Blood Cells Blood Bank Comment Blood Gas Puncture Site DRAWN IN OR Blood Gas Patient Temperature 98.6 Blood Gas HCO3 20 mmol/L Blood Gas Base Excess -4.6 mmol/L Blood Gas Oxygen Saturation 97 % Arterial Blood pH 7.37 Arterial Blood Partial 35 mmHg Pressure CO2 Arterial Blood Partial 243 mmHg Pressure O2 Arterial Blood Oxygen Content 22.3 Vol % Arterial Blood 1.3 % Carboxyhemoglobin Arterial Blood Methemoglobin 1.0 % Blood Gas Hemoglobin 15.9 G/DL Oxygen Delivery Device OR Blood Gas Ventilator Setting OR Test 12/06/16 12/08/16 12/09/16 12/10/16 20:54 04:06 05:07 04:43 Prothrombin Time 11.7 SEC Prothromb Time International 1.1 RATIO Ratio Activated Partial 19.7 SEC Thromboplast Time Fibrinogen 151 mg/dL Lactic Acid Level 3.2 mmol/L Protein Corrected Calcium 8.6 MG/DL Magnesium Level 2.1 MG/DL Total Protein 4.6 GM/DL Phosphorus Level 2.3 MG/DL White Blood Count 6.6 TH/MM3 Red Blood Count 2.79 MIL/MM3 Hemoglobin 8.0 GM/DL Hematocrit 22.8 % Mean Corpuscular Volume 81.7 FL Mean Corpuscular Hemoglobin 28.6 PG Mean Corpuscular Hemoglobin 35.0 % Concent Red Cell Distribution Width 14.5 % Platelet Count 150 TH/MM3 Mean Platelet Volume 9.5 FL Neutrophils (%) (Auto) 59.7 % Lymphocytes (%) (Auto) 26.7 % Monocytes (%) (Auto) 9.0 % Eosinophils (%) (Auto) 4.0 % Basophils (%) (Auto) 0.6 % Neutrophils # (Auto) 4.0 TH/MM3 Lymphocytes # (Auto) 1.8 TH/MM3 Monocytes # (Auto) 0.6 TH/MM3 Eosinophils # (Auto) 0.3 TH/MM3 Basophils # (Auto) 0.0 TH/MM3 CBC Comment DIFF FINAL Differential Comment Sodium Level 141 MEQ/L Potassium Level 3.2 MEQ/L Chloride Level 104 MEQ/L Carbon Dioxide Level 29.0 MEQ/L Anion Gap 8 MEQ/L Blood Urea Nitrogen 3 MG/DL Creatinine 0.49 MG/DL Estimat Glomerular Filtration 127 ML/MIN Rate Random Glucose 93 MG/DL Calcium Level 8.0 MG/DL Objective Remarks GENERAL: Obesity, well-developed, No distress. HEAD: Atraumatic. Normocephalic. EYES: Pupils equal and round 3 mm and reactive bilaterally. ENT: No nasal bleeding or discharge. Mucous membranes pink and moist. NECK: Trachea midline. No JVD. CARDIOVASCULAR: Regular rate and rhythm, sinus rhythm on the monitor with rate in the 60s. No murmurs rubs or gallops. RESPIRATORY: No accessory muscle use. Clear to auscultation. Breath sounds equal bilaterally. On 2 L nasal cannula GASTROINTESTINAL: Abdomen soft, tender. Ostomy working. : Escobar in place with light yellow urine output. MUSCULOSKELETAL: Extremities without clubbing, cyanosis, or edema. No obvious deformities. NEUROLOGICAL: Awake and alert. No focal deficits. Medications and IVs Current Medications Medications (Trade) Dose Ordered Sig/Benedicto Route Start Time Stop Time Status Last Admin (Lr 1000 ml Inj) 1,000 ml @ 75 mls/hr [id number] IV 12/06/16 19:29 12/09/16 22:15 (NS Flush) 2 ml UNSCH PRN IV FLUSH 12/06/16 19:30 (NS Flush) 2 ml BID IV FLUSH 12/06/16 21:00 12/09/16 09:47 (Zofran Inj) 4 mg Q6H PRN IV 12/06/16 19:30 12/08/16 22:06 (Protonix Inj) 40 mg Q24H IV 12/06/16 21:00 12/08/16 22:06 (Benadryl Inj) 25 mg Q6H PRN IV 12/06/16 19:30 (Narcan Inj) 0.4 mg UNSCH PRN IV 12/06/16 19:30 (Morphine 1 Mg/ ml INTEGRITY ENGINEER) 30 mg UNSCH IV 12/06/16 19:30 12/09/16 02:44 INTEGRITY ENGINEER Dosage Infused (Pha) 1 Q8HR .XX 12/06/16 22:00 12/10/16 06:00 (D50w (Vial) Inj) 25 ml UNSCH PRN IV PUSH 12/06/16 19:30 (Glucagon Inj) 1 mg UNSCH PRN OTHER 12/06/16 19:30 (Entereg) 12 mg Q12HR PO 12/07/16 09:00 12/09/16 22:15 (Synthroid Inj) 25 mcg DAILY@06 IV PUSH 12/08/16 06:00 12/09/16 06:31 Atorvastatin Calcium 10 mg 10 mg HS PO 12/08/16 21:00 12/09/16 22:15 (Venofer Inj/NS Inj) 105 ml @ 105 mls/hr Q24H IV 12/09/16 12:00 12/11/16 12:59 12/09/16 11:24 (Tylenol Supp) 650 mg Q6H PRN RECTAL 12/09/16 10:45 (Imitrex) 50 mg DAILY PRN PO 12/09/16 16:15 12/09/16 17:16 A/P Assessment and Plan 1. Asthma by history to continue Bronchodilator, Mucolytic and incentive spirometry, early ambulation 2. Hyperlipidemia continue Crestor 5 mg at bedtime 3. Status post Exploratory Laparotomy with Pelvic Mass Resection, Sigmoidectomy and Colostomy by Dr. Jewell, Dr. Calix and Dr. Smith Prior Biopsy high grade Undifferentiated Malignant neoplasm. solutions specialist Doctor Corona Henry at [facility], hemoglobin today 8 IV Iron. 4. Hypothyroidism to continue Hormonal replacement by mouth 5. Electrolyte derangement replaced. 6. obesity strongly recommended Diet and exercise. PROPH: SCDs for DVT prophylaxis. Protonix 40 mg IV daily for stress ulcer prophylaxis. Code Status Full code Discussed Condition With Patient, and nurse Miss Eckert. Discharge Planning per Attending physician. Avel Cao MD Dec 10, 2016 09:19 Avel Cao MD Dec 10, 2016 09:19
[2016-12-10] MEDS ORDERED: POTASSIUM CHLORIDE 20 MEQ CONTROLLED RELEASE TAB PO ONE ×2 (09:30→12:00)
[2016-12-10] MEDS: PANTOPRAZOLE SOD 40 MG DELAYED RELEASE TAB PO SCH (10:27)
[2016-12-10] MEDS: LEVOTHYROXINE SODIUM 50 MCG TAB PO SCH (10:27)
[2016-12-10] MEDS ORDERED: SUMAtriptan SUCCINATE 25 MG TAB PO PRN (10:30)
[2016-12-10 12:00] VITALS: BP 124/66; PULSE 76; RESP 17; TEMP 97.8; O2SAT 95
[2016-12-10] MEDS: IRON SUCROSE INJ 100 MG in SODIUM CHLORIDE 0.9% INJ 100 ML IV SCH (12:42)
--- NOTE | 2016-12-10 15:05 | HHI.PR ---
Subjective Subjective Notes DAILY PROGRESS NOTE FOR SURGICAL ATTENDING, DR. LAUREN LEE Patient fairly alert Would like more to eat Ostomy was some air Complains of some "funny" feeling in her left leg Objective Vitals/I&O Vital Signs Date Time Temp Pulse Resp B/P Pulse Ox O2 Delivery O2 Flow Rate FiO2 12/10/16 12:00 97.8 76 17 124/66 95 12/07/16 22:45 Room Air 12/07/16 09:00 2 Labs Laboratory Tests Test 12/10/16 04:43 White Blood Count 6.6 Red Blood Count 2.79 Hemoglobin 8.0 Hematocrit 22.8 Mean Corpuscular Volume 81.7 Mean Corpuscular Hemoglobin 28.6 Mean Corpuscular Hemoglobin 35.0 Concent Red Cell Distribution Width 14.5 Platelet Count 150 Mean Platelet Volume 9.5 Neutrophils (%) (Auto) 59.7 Lymphocytes (%) (Auto) 26.7 Monocytes (%) (Auto) 9.0 Eosinophils (%) (Auto) 4.0 Basophils (%) (Auto) 0.6 Neutrophils # (Auto) 4.0 Lymphocytes # (Auto) 1.8 Monocytes # (Auto) 0.6 Eosinophils # (Auto) 0.3 Basophils # (Auto) 0.0 CBC Comment DIFF FINAL Differential Comment Sodium Level 141 Potassium Level 3.2 Chloride Level 104 Carbon Dioxide Level 29.0 Anion Gap 8 Blood Urea Nitrogen 3 Creatinine 0.49 Estimat Glomerular Filtration 127 Rate Random Glucose 93 Calcium Level 8.0 Cardiovascular: Regular Abdomen: Post-op tenderness Extremities: SCD's on Narrative Exam Colostomy present Liss colostomy Colostomy pink Midline wound with mariana dressing in place A/P Problem List: (1) Carcinomatosis (2) Pelvic mass in female (3) Bleeding Assessment and Plan 66-year-old female status post pelvic mass excision with colostomy Patient doesn't like Accu-Cheks as her sugars been normal Would Like change to by mouth pain Attending Statement NOTE FOR SURGICAL ATTENDING, DR. LAUREN LEE I attest that I had a [id number] encounter with the patient on the same day, and personally performed and documented my assessment and findings in the medical record. The following services were provided during this hospital visit: Chart data review, vital sign assessments/reviewing monitor data Review of consultations notes if present. Medication orders/review and/or management Ordering and/or reviewing lab tests Ordering and/or interpreting/reviewing x-rays and/or diagnostic studies Care of the patient and discussion of the patient with the care team Documentation time To help prompt me to consider important information that might be impacting today's encounter and assessment, information from prior notes written by myself or my colleagues may have been "brought forward/copy and pasted" into today's note. Lauren Lee MD Dec 10, 2016 15:05
[2016-12-10 16:00] VITALS: BP 111/66; PULSE 78; RESP 16; TEMP 97.4; O2SAT 96
[2016-12-10] MEDS: ACETAMINOPHEN/HYDROcodone 325 MG/5 MG TAB PO PRN ×2 (17:33→21:59)
[2016-12-10 20:00] VITALS: BP 142/66; PULSE 98; RESP 17; TEMP 98.8; O2SAT 96
[2016-12-10] MEDS: ATORVASTATIN 10 MG TAB PO SCH (20:57)
[2016-12-11] VITALS: BP 118/69; PULSE 97; RESP 20; TEMP 98.4; O2SAT 97
[2016-12-11] MEDS: ACETAMINOPHEN/HYDROcodone 325 MG/5 MG TAB PO PRN ×5 (02:52→23:17)
[2016-12-11] MEDS: LACTATED RINGER'S 1000 ML INJ 1,000 ML IV SCH (05:14)
[2016-12-11] MEDS: PCA - TOTAL MG MORPHINE DELIVERED PER SHIFT SCH ×3 (06:00→22:00)
--- NOTE | 2016-12-11 06:37 | MP ---
cc: CELIA LEE KELLY L. MD MESSINER, RYAN DATE OF PROCEDURE 12/06/2016 PROCEDURE Closure of vaginal cuff status post tumor resection. SURGEON Summer Calix MD ANESTHESIA General endotracheal anesthesia HISTORY A 66-year-old female under the care of Dr. Celia Lee for extensive pelvic tumor. I had met her in consultation the day prior to surgery. Historically she had a hysterectomy and bilateral salpingo-oophorectomy. CT scan indicated extensive pelvic tumor of uncertain origin. Dr. Lee asked me to meet with her given the possibility that this could represent a gynecologic or primary peritoneal tumor. Dr. Lee had performed exploratory surgery and had initiated tumor resection. I entered the operating room to check on the status of the case, as he asked if I could scrub into the case. Some significant bleeding was encountered from resection of the tumor. We consulted Vascular Surgery who scrubbed in as well. I acted as an electrician's assistant as Dr. Smith and Dr. Lee, who addressed the bleeding and took steps for acquisition of hemostasis. Continued dissection of the tumor including rectosigmoid resection was carried out by Dr. Lee. Due to the infiltrating nature of the tumor, there was a small segment of the upper vagina included in the specimen such that there was a vaginotomy at the apex of the vagina that required closure after tumor resection. 0 Vicryl suture running closure was carried out starting at the right apex, full-thickness running closure was continued to the contralateral corner where it was tied securely. I stayed scrubbed approximately two hours, acting as electrician's assistant to Dr. Lee. After completing surgical tumor resection and confirming hemostasis, I scrubbed out of the case, as the procedure was continued by Dr. Lee. He completed any remaining surgical objectives including closure of the abdominal wall. Please see op notes from Dr. Celia Lee and Dr. Smith of Vascular Surgery. MD BRITNEY Blanco/ZACHARY /5:33 AM /6:29 AM [facility]
[2016-12-11] MEDS: LEVOTHYROXINE SODIUM 50 MCG TAB PO SCH (06:48)
[2016-12-11] MEDS: INSULIN NovoLIN REGULAR SUPPLEMENTAL SCALE SQ SCH ×4 (06:49→21:00)
[2016-12-11 08:00] VITALS: BP_SYST 134; BP_DIAS 60; BP_DIAS 78; PULSE 81; RESP 17; RESP 20; TEMP 98.6; TEMP 98.7; O2SAT 96
[2016-12-11] MEDS: SODIUM CHLORIDE 0.9% FLUSH 10 ML FLUSH IV FLUSH SCH ×2 (09:00→21:00)
[2016-12-11] MEDS: SUMAtriptan SUCCINATE 50 MG TAB PO PRN (09:06)
[2016-12-11] MEDS: ALVIMOPAN 12 MG CAPSULE PO SCH ×2 (09:06→23:16)
[2016-12-11] MEDS: PANTOPRAZOLE SOD 40 MG DELAYED RELEASE TAB PO SCH (09:06)
--- NOTE | 2016-12-11 10:21 | HHI.PR ---
Subjective Remarks This is a pleasant 66 y/o Female with Asthma, Hyperlipidemia, Hyperthyroidism, who has been diagnosed with a Complex Left Pelvic mass, status post Exploratory laparotomy with Pelvic Mass resection, Sigmoidectomy and colostomy by Dr. Jewell, Dr. Calix and Dr. Smith. Had a routine airway for intubation. She received 7 L of crystalloid, 4 units packed red cells, when she had bleeding from deep in pelvis with resection of tumor, repaired left Hypogastric artery and left internal iliac vein, 12/08: Phosphorus today 1.3 was replaced by nurse, Hemoglobin 7.5 considered dilutional by Surgeon, stable at this time asymptomatic, No complaint. 12/09: Seen in her bedroom and discussed with nurse Miss Eckert and her Mr. Gaines, complaint of Headache, will help with Venofer for three days, Potassium replaced and Phosphorus. 12/10: Seen in her bedroom in the presence of her , asked for her Home medicines, Imitrex Levothyroxine, Colostomy working well. 12/11: Stable, no complaint continue management by her Primary Surgeon, No nausea , vomit or diarrhea. her Friend and nurse with her Mrs. Mikki Mcfarlane. Objective Vital Signs Date Time Temp Pulse Resp B/P Pulse Ox O2 Delivery O2 Flow Rate FiO2 12/11/16 08:00 98.7 81 17 134/60 96 12/11/16 06:00 18 12/11/16 00:00 98.4 97 20 118/69 97 12/10/16 21:03 18 12/10/16 20:00 98.8 98 17 142/66 96 12/10/16 16:00 97.4 78 16 111/66 96 12/10/16 14:00 16 12/10/16 12:00 97.8 76 17 124/66 95 I/O 12/10/16 12/10/16 12/10/16 12/11/16 12/11/16 12/11/16 07:00 15:00 23:00 07:00 15:00 23:00 Intake Total 855 ml 1148 ml 607 ml 689 ml 120 ml Output Total 1560 ml 1540 ml 530 ml 550 ml Balance -705 ml -392 ml 77 ml 139 ml 120 ml Intake Oral 280 ml 600 ml 440 ml 240 ml 120 ml IV Total 575 ml 548 ml 167 ml 449 ml Output Urine Total 1500 ml 1225 ml 480 ml 500 ml Stool Total 10 ml 175 ml Drainage Total 50 ml 140 ml 50 ml 50 ml # Bowel Movements 0 0 Result Diagram: 12/10/16 0443 12/10/16 1640 Imaging No Imaging studies. Procedures Status post Exploratory Laparotomy with Pelvic Mass Resection, Sigmoidectomy and Colostomy by Dr. Jewell, Dr. Cailx and Dr. Smith Other Results Laboratory Tests Test 12/06/16 12/06/16 12/06/16 12/08/16 12:40 16:08 16:51 04:06 Antibody Screen NEGATIVE Blood Type A POSITIVE Crossmatch Leukocyte-Reduced Red Blood Cells Blood Bank Comment Protein Corrected Calcium 8.6 MG/DL Magnesium Level 2.1 MG/DL Total Protein 4.6 GM/DL Test 12/09/16 12/10/16 12/10/16 05:07 04:43 16:40 Phosphorus Level 2.3 MG/DL White Blood Count 6.6 TH/MM3 Red Blood Count 2.79 MIL/MM3 Hemoglobin 8.0 GM/DL Hematocrit 22.8 % Mean Corpuscular Volume 81.7 FL Mean Corpuscular Hemoglobin 28.6 PG Mean Corpuscular Hemoglobin 35.0 % Concent Red Cell Distribution Width 14.5 % Platelet Count 150 TH/MM3 Mean Platelet Volume 9.5 FL Neutrophils (%) (Auto) 59.7 % Lymphocytes (%) (Auto) 26.7 % Monocytes (%) (Auto) 9.0 % Eosinophils (%) (Auto) 4.0 % Basophils (%) (Auto) 0.6 % Neutrophils # (Auto) 4.0 TH/MM3 Lymphocytes # (Auto) 1.8 TH/MM3 Monocytes # (Auto) 0.6 TH/MM3 Eosinophils # (Auto) 0.3 TH/MM3 Basophils # (Auto) 0.0 TH/MM3 CBC Comment DIFF FINAL Differential Comment Sodium Level 141 MEQ/L Chloride Level 104 MEQ/L Carbon Dioxide Level 29.0 MEQ/L Anion Gap 8 MEQ/L Blood Urea Nitrogen 3 MG/DL Creatinine 0.49 MG/DL Estimat Glomerular Filtration 127 ML/MIN Rate Random Glucose 93 MG/DL Calcium Level 8.0 MG/DL Potassium Level 4.1 MEQ/L Objective Remarks GENERAL: Obesity, well-developed, No distress. HEAD: Atraumatic. Normocephalic. EYES: Pupils equal and round 3 mm and reactive bilaterally. ENT: No nasal bleeding or discharge. Mucous membranes pink and moist. NECK: Trachea midline. No JVD. CARDIOVASCULAR: Regular rate and rhythm, sinus rhythm on the monitor with rate in the 60s. No murmurs rubs or gallops. RESPIRATORY: No accessory muscle use. Clear to auscultation. Breath sounds equal bilaterally. On 2 L nasal cannula GASTROINTESTINAL: Abdomen soft, tender. Ostomy working. MUSCULOSKELETAL: Extremities without clubbing, cyanosis, or edema. No obvious deformities. NEUROLOGICAL: Awake and alert. No focal deficits. Medications and IVs Current Medications Medications (Trade) Dose Ordered Sig/Benedicto Route Start Time Stop Time Status Last Admin (Lr 1000 ml Inj) 1,000 ml @ 50 mls/hr Q20H IV 12/06/16 19:29 12/11/16 05:14 (NS Flush) 2 ml UNSCH PRN IV FLUSH 12/06/16 19:30 (NS Flush) 2 ml BID IV FLUSH 12/06/16 21:00 12/10/16 09:15 (Zofran Inj) 4 mg Q6H PRN IV 12/06/16 19:30 12/08/16 22:06 (Benadryl Inj) 25 mg Q6H PRN IV 12/06/16 19:30 (Narcan Inj) 0.4 mg UNSCH PRN IV 12/06/16 19:30 (Morphine 1 Mg/ ml ENGINE BUILDUP MECHANIC) 30 mg UNSCH IV 12/06/16 19:30 12/09/16 02:44 ENGINE BUILDUP MECHANIC Dosage Infused (Pha) 1 Q8HR .XX 12/06/16 22:00 12/11/16 06:00 (D50w (Vial) Inj) 25 ml UNSCH PRN IV PUSH 12/06/16 19:30 (Glucagon Inj) 1 mg UNSCH PRN OTHER 12/06/16 19:30 (Entereg) 12 mg Q12HR PO 12/07/16 09:00 12/11/16 09:06 Atorvastatin Calcium 10 mg 10 mg HS PO 12/08/16 21:00 12/10/16 20:57 (Venofer Inj/NS Inj) 105 ml @ 105 mls/hr Q24H IV 12/09/16 12:00 12/11/16 12:59 12/10/16 12:42 (Tylenol Supp) 650 mg Q6H PRN RECTAL 12/09/16 10:45 (Imitrex) 50 mg DAILY PRN PO 12/09/16 16:15 12/11/16 09:06 (Synthroid) 50 mcg DAILY@0600 PO 12/10/16 11:00 12/11/16 06:48 (Protonix) 40 mg DAILY PO 12/10/16 11:00 12/11/16 09:06 (Imitrex) 25 mg BID PRN PO 12/10/16 10:30 (Girard 5-325 Mg) 1 tab Q4H PRN PO 12/10/16 12:15 12/11/16 06:54 A/P Assessment and Plan 1. Asthma by history to continue Bronchodilator, Mucolytic and incentive spirometry, early ambulation 2. Hyperlipidemia continue Crestor 5 mg at bedtime 3. Status post Exploratory Laparotomy with Pelvic Mass Resection, Sigmoidectomy and Colostomy by Dr. Jewell, Dr. Calix and Dr. Smith Prior Biopsy high grade Undifferentiated Malignant neoplasm. biologics specialist Doctor Corona Henry at [facility], hemoglobin today 8 IV Iron. 4. Hypothyroidism to continue Hormonal replacement by mouth 5. Electrolyte derangement replaced. 6. obesity strongly recommended Diet and exercise. PROPH: SCDs for DVT prophylaxis. Protonix 40 mg IV daily for stress ulcer prophylaxis. Code Status Full code Discussed Condition With Patient, and nurse Miss Watts Discharge Planning per Attending physician. Avel Cao MD Dec 11, 2016 10:21
[2016-12-11] MEDS: IRON SUCROSE INJ 100 MG in SODIUM CHLORIDE 0.9% INJ 100 ML IV SCH (11:41)
--- NOTE | 2016-12-11 11:41 | HHI.FF ---
Face to Face Verification Diagnosis: (1) Pelvic mass in female (2) Bleeding Physical Therapy Order: Evaluate and Treat, Improve ambulation, Strength and gait training Instructions: No restrictions Home Health Nursing Order: Wound care and dressing changes Nursing assessment with vital signs Instructions: Colostomy teaching and supplies Wound care for midline incision I have seen patient Jenna Hernandez on 12/11/16. My clinical findings support the need for the requested home health care services because: Limited ability to care for self High risk of falls I certify that my clinical findings support that this patient is homebound because: Unsteady gait/balance Mila Dickerson [facility] Dec 11, 2016 11:41
[2016-12-11 12:00] VITALS: BP 137/72; PULSE 77; RESP 20; TEMP 97.8; O2SAT 98
[2016-12-11 16:00] VITALS: BP 106/56; PULSE 90; RESP 19; TEMP 98.5; O2SAT 96
--- NOTE | 2016-12-11 16:16 | HHI.PR ---
Subjective Subjective Notes Up to chair Feels like trying regular food Still has aura occasionally Objective Vitals/I&O Vital Signs Date Time Temp Pulse Resp B/P Pulse Ox O2 Delivery O2 Flow Rate FiO2 12/11/16 13:52 Room Air 12/11/16 12:00 97.8 77 20 137/72 98 12/07/16 09:00 2 Labs Laboratory Tests Test 12/10/16 16:40 Potassium Level 4.1 Cardiovascular: Regular Lungs: Clear Abdomen: Other (midline incision with DAMARIS dressing in place (battery pack removed); SOLO with serous drainage; colostomy stoma pink---appliance in place ) Extremities: Other (mild BLE edema ) A/P Problem List: (1) Carcinomatosis (2) Pelvic mass in female (3) Bleeding Assessment and Plan 66 year old female POD5 ex lap; resection of pelvic mass with en block resection of sigmoid colon and distal rectum with end colostomy; left ureterolysis; repair of cystotomy; repair of internal left iliac vein; repair of vaginal cuff -Advance to regular diet -Consult to Wound/Colostomy Nurse -OUTSOLE TACKER + [place] for pain -OOB; PT following -Monitor Hmg---staple now -Likely DC IVF tomorrow -I will change dressing tomorrow -Await pathology results -Otoole must stay in place for atleast 1 week!!! -CM consult for HHC with PT (face to face complete) Attending Statement Abdominal exam postop pain, drain benign, path pending plan for cystogram POD#7 prior to removing otoole The exam, history, and the medical decision-making described in the above note were completed with the assistance of the mid-level provider. I reviewed and agree with the findings presented. I attest that I had a [id number] encounter with the patient on the same day, and personally performed and documented my assessment and findings in the medical record. Mila Dickerson Dec 11, 2016 16:16 Dada Kyle MD Dec 16, 2016 22:59
[2016-12-11] MEDS ORDERED: WALKER WHEELS/F1 MIS (16:30)
[2016-12-11] MEDS: ATORVASTATIN 10 MG TAB PO SCH (23:16)
[2016-12-12] VITALS: BP 129/69; PULSE 78; RESP 18; TEMP 98.2; O2SAT 97
[2016-12-12] MEDS: LACTATED RINGER'S 1000 ML INJ 1,000 ML IV SCH ×2 (01:14→21:54)
[2016-12-12 04:00] VITALS: BP 118/66; PULSE 91; RESP 18; TEMP 100.3; O2SAT 94
[2016-12-12] MEDS: PCA - TOTAL MG MORPHINE DELIVERED PER SHIFT SCH ×3 (06:00→21:55)
[2016-12-12] MEDS: INSULIN NovoLIN REGULAR SUPPLEMENTAL SCALE SQ SCH ×4 (06:17→21:00)
[2016-12-12] MEDS: LEVOTHYROXINE SODIUM 50 MCG TAB PO SCH (06:17)
[2016-12-12] MEDS: CIPROFLOXACIN/DEXT 400 MG/200 ML IV SCH ×2 (06:17→17:55)
[2016-12-12 07:01] LABS: BACTERIA, URINE MANY /hpf; BLOOD, URINE SMALL (NEG); GLUCOSE,URINE NEG (NEG); KETONE, URINE NEG (NEG); MUCUS URINE FEW /lpf (OCC); NITRITE,URINE NEG (NEG); URINE COLOR LIGHT-YELLOW (YELLW/STRAW)
[2016-12-12 07:02] LABS: COMMENT (UR) CATH-CULTURE IND; CULTURE IF INDICATED CATH CULTURE IND
[2016-12-12 08:00] VITALS: BP 117/57; PULSE 85; RESP 18; TEMP 99.1; O2SAT 96
--- NOTE | 2016-12-12 10:15 | HHI.PR ---
Subjective Remarks This is a pleasant 66 y/o Female with Asthma, Hyperlipidemia, Hyperthyroidism, who has been diagnosed with a Complex Left Pelvic mass, status post Exploratory laparotomy with Pelvic Mass resection, Sigmoidectomy and colostomy by Dr. Jewell, Dr. Calix and Dr. Smith. Had a routine airway for intubation. She received 7 L of crystalloid, 4 units packed red cells, when she had bleeding from deep in pelvis with resection of tumor, repaired left Hypogastric artery and left internal iliac vein, 12/08: Phosphorus today 1.3 was replaced by nurse, Hemoglobin 7.5 considered dilutional by Surgeon, stable at this time asymptomatic, No complaint. 12/09: Seen in her bedroom and discussed with nurse Miss Eckert and her Mr. Gaines, complaint of Headache, will help with Venofer for three days, Potassium replaced and Phosphorus. 12/10: Seen in her bedroom in the presence of her , asked for her Home medicines, Imitrex Levothyroxine, Colostomy working well. 12/11: Stable, no complaint continue management by her Primary Surgeon, her Friend and nurse with her Mrs. Mikki Mcfarlane. 12/12; Has Dysuria, during the night had Fever, turbid urine, taken UA and found pathologic urine, started on Cipro IV by Attending physician the Escobar Cath will need to continue in place for one week more. she is not feeling well and has Dizziness when standing. Objective Vital Signs Date Time Temp Pulse Resp B/P Pulse Ox O2 Delivery O2 Flow Rate FiO2 12/12/16 08:00 99.1 85 18 117/57 96 12/12/16 06:00 20 12/12/16 04:00 100.3 91 18 118/66 94 12/12/16 00:00 98.2 78 18 129/69 97 12/11/16 22:00 16 12/11/16 19:00 97 Room Air 12/11/16 16:00 98.5 90 19 106/56 96 12/11/16 13:52 Room Air 12/11/16 12:00 97.8 77 20 137/72 98 I/O 12/11/16 12/11/16 12/11/16 12/12/16 12/12/16 12/12/16 07:00 15:00 23:00 07:00 15:00 23:00 Intake Total 689 ml 1080 ml 360 ml Output Total 550 ml 1090 ml 90 ml 850 ml Balance 139 ml -10 ml -90 ml -490 ml Intake Oral 240 ml 1080 ml 360 ml IV Total 449 ml Output Urine Total 500 ml 1000 ml 850 ml Stool Total 0 ml Drainage Total 50 ml 90 ml 90 ml # Bowel Movements 0 0 0 Result Diagram: 12/10/16 0443 12/10/16 1640 Imaging No Imaging studies. Procedures Status post Exploratory Laparotomy with Pelvic Mass Resection, Sigmoidectomy and Colostomy by Dr. Jewell, Dr. Calix and Dr. Smith Other Results Laboratory Tests Test 12/06/16 12/08/16 12/09/16 12/10/16 16:08 04:06 05:07 04:43 Blood Type A POSITIVE Crossmatch Leukocyte-Reduced Red Blood Cells Blood Bank Comment Protein Corrected Calcium 8.6 MG/DL Magnesium Level 2.1 MG/DL Total Protein 4.6 GM/DL Phosphorus Level 2.3 MG/DL White Blood Count 6.6 TH/MM3 Red Blood Count 2.79 MIL/MM3 Hemoglobin 8.0 GM/DL Hematocrit 22.8 % Mean Corpuscular Volume 81.7 FL Mean Corpuscular Hemoglobin 28.6 PG Mean Corpuscular Hemoglobin 35.0 % Concent Red Cell Distribution Width 14.5 % Platelet Count 150 TH/MM3 Mean Platelet Volume 9.5 FL Neutrophils (%) (Auto) 59.7 % Lymphocytes (%) (Auto) 26.7 % Monocytes (%) (Auto) 9.0 % Eosinophils (%) (Auto) 4.0 % Basophils (%) (Auto) 0.6 % Neutrophils # (Auto) 4.0 TH/MM3 Lymphocytes # (Auto) 1.8 TH/MM3 Monocytes # (Auto) 0.6 TH/MM3 Eosinophils # (Auto) 0.3 TH/MM3 Basophils # (Auto) 0.0 TH/MM3 CBC Comment DIFF FINAL Differential Comment Sodium Level 141 MEQ/L Chloride Level 104 MEQ/L Carbon Dioxide Level 29.0 MEQ/L Anion Gap 8 MEQ/L Blood Urea Nitrogen 3 MG/DL Creatinine 0.49 MG/DL Estimat Glomerular Filtration 127 ML/MIN Rate Random Glucose 93 MG/DL Calcium Level 8.0 MG/DL Test 12/10/16 12/12/16 16:40 06:30 Potassium Level 4.1 MEQ/L Urine Color LIGHT-YELLOW Urine Turbidity HAZY Urine pH 8.0 Urine Specific [place] 1.010 Urine Protein 30 mg/dL Urine Glucose (UA) NEG mg/dL Urine Ketones NEG mg/dL Urine Occult Blood SMALL Urine Nitrite NEG Urine Bilirubin NEG Urine Urobilinogen LESS THAN 2.0 MG/DL Urine Leukocyte Esterase LARGE Urine RBC 21 /hpf Urine WBC /hpf Urine WBC Clumps MANY Urine Bacteria MANY /hpf Urine Mucus FEW /lpf Microscopic Urinalysis Comment CATH-CULTURE IND Objective Remarks GENERAL: Obesity, well-developed, No distress. HEAD: Atraumatic. Normocephalic. EYES: Pupils equal and round 3 mm and reactive bilaterally. ENT: No nasal bleeding or discharge. Mucous membranes pink and moist. NECK: Trachea midline. No JVD. CARDIOVASCULAR: Regular rate and rhythm, sinus rhythm on the monitor with rate in the 60s. No murmurs rubs or gallops. RESPIRATORY: No accessory muscle use. Clear to auscultation. Breath sounds equal bilaterally. On 2 L nasal cannula GASTROINTESTINAL: Abdomen soft, tender. Ostomy working. clean surgical wounds and mechanical stitches in place. MUSCULOSKELETAL: Extremities without clubbing, cyanosis, or edema. No obvious deformities. NEUROLOGICAL: Awake and alert. No focal deficits. Medications and IVs Current Medications Medications (Trade) Dose Ordered Sig/Benedicto Route Start Time Stop Time Status Last Admin (Lr 1000 ml Inj) 1,000 ml @ 50 mls/hr Q20H IV 12/06/16 19:29 12/12/16 01:14 (NS Flush) 2 ml UNSCH PRN IV FLUSH 12/06/16 19:30 (NS Flush) 2 ml BID IV FLUSH 12/06/16 21:00 12/10/16 09:15 (Zofran Inj) 4 mg Q6H PRN IV 12/06/16 19:30 12/08/16 22:06 (Benadryl Inj) 25 mg Q6H PRN IV 12/06/16 19:30 (Narcan Inj) 0.4 mg UNSCH PRN IV 12/06/16 19:30 (Morphine 1 Mg/ ml WHITE METAL CORROSION PROOFER) 30 mg UNSCH IV 12/06/16 19:30 12/09/16 02:44 WHITE METAL CORROSION PROOFER Dosage Infused (Pha) 1 Q8HR .XX 12/06/16 22:00 12/12/16 06:00 (D50w (Vial) Inj) 25 ml UNSCH PRN IV PUSH 12/06/16 19:30 (Glucagon Inj) 1 mg UNSCH PRN OTHER 12/06/16 19:30 (Entereg) 12 mg Q12HR PO 12/07/16 09:00 12/11/16 23:16 (Lipitor) 10 mg HS PO 12/08/16 21:00 12/11/16 23:16 (Tylenol Supp) 650 mg Q6H PRN RECTAL 12/09/16 10:45 (Imitrex) 50 mg DAILY PRN PO 12/09/16 16:15 12/11/16 09:06 (Synthroid) 50 mcg DAILY@0600 PO 12/10/16 11:00 12/12/16 06:17 (Protonix) 40 mg DAILY PO 12/10/16 11:00 12/11/16 09:06 (Imitrex) 25 mg BID PRN PO 12/10/16 10:30 Acetaminophen/ Hydrocodone Bitart 1 tab 1 tab Q4H PRN PO 12/10/16 12:15 12/11/16 23:17 (Cipro 400 Mg Premix) 200 ml @ 200 mls/hr Q12H IV 12/12/16 06:00 12/12/16 06:17 A/P Assessment and Plan 1. Asthma by history to continue Bronchodilator, Mucolytic and incentive spirometry, early ambulation 2. Hyperlipidemia continue Crestor 5 mg at bedtime 3. Status post Exploratory Laparotomy with Pelvic Mass Resection, Sigmoidectomy and Colostomy by Dr. Jewell, Dr. Calix and Dr. Smith Prior Biopsy high grade Undifferentiated Malignant neoplasm. web communications specialist Doctor Corona Henry at [facility], hemoglobin 9.4 received Venofer for three days. 4. Hypothyroidism to continue Hormonal replacement by mouth 5. Electrolyte derangement replaced. 6. obesity strongly recommended Diet and exercise. 7. UTI on Cipro and following Urine culture and sensitivities. PROPH: SCDs for DVT prophylaxis. Protonix 40 mg IV daily for stress ulcer prophylaxis. Code Status Full code Discussed Condition With Patient, and nurse Miss Aguayo Discharge Planning per Attending physician. Avel Cao MD Dec 12, 2016 10:15
[2016-12-12] MEDS: ONDANSETRON HCL 4 MG/2 ML VIAL IV PRN (10:29)
[2016-12-12] MEDS: SODIUM CHLORIDE 0.9% FLUSH 10 ML FLUSH IV FLUSH SCH ×2 (10:30→21:00)
[2016-12-12] MEDS: ALVIMOPAN 12 MG CAPSULE PO SCH ×2 (10:30→21:53)
[2016-12-12] MEDS: PANTOPRAZOLE SOD 40 MG DELAYED RELEASE TAB PO SCH (10:30)
[2016-12-12 12:00] VITALS: BP 119/67; PULSE 105; RESP 18; TEMP 98.4; O2SAT 100
[2016-12-12] MEDS: KETOROLAC TROMETHAMINE 30 MG/ML (IVP) VIAL IV PUSH PRN ×2 (12:01→17:54)
--- NOTE | 2016-12-12 12:17 | HHI.PR ---
Subjective Subjective Notes Up to chair Didn't sleep well night Objective Vitals/I&O Vital Signs Date Time Temp Pulse Resp B/P Pulse Ox O2 Delivery O2 Flow Rate FiO2 12/12/16 08:00 99.1 85 18 117/57 96 12/11/16 19:00 Room Air Labs Laboratory Tests Test 12/12/16 06:30 Urine Color LIGHT-YELLOW Urine Turbidity HAZY Urine pH 8.0 Urine Specific [place] 1.010 Urine Protein 30 Urine Glucose (UA) NEG Urine Ketones NEG Urine Occult Blood SMALL Urine Nitrite NEG Urine Bilirubin NEG Urine Urobilinogen LESS THAN 2.0 Urine Leukocyte Esterase LARGE Urine RBC 21 Urine WBC Urine WBC Clumps MANY Urine Bacteria MANY Urine Mucus FEW Microscopic Urinalysis Comment CATH-CULTURE IND Date/Time Procedure Status Source Growth 12/12/16 06:30 Urine Culture Received Urine Catheterized Urine Pending Cardiovascular: Regular Lungs: Clear Abdomen: Other (midline incision stapled c/d/i; SOLO with cloudy sediment drainage; colostomy stoma pink with minimal stool in bag ) Extremities: Other (mild BLE edema ) A/P Problem List: (1) Carcinomatosis (2) Pelvic mass in female (3) Bleeding Assessment and Plan 66 year old female POD6 ex lap; resection of pelvic mass with en block resection of sigmoid colon and distal rectum with end colostomy; left ureterolysis; repair of cystotomy; repair of internal left iliac vein; repair of vaginal cuff -Advance to regular diet ---encouraged small more frequent meals -Urine culture pending -DC Accu checks -Consult to Wound/Colostomy Nurse -VICE PRESIDENT OF HUMAN RESOURCES + [place] for pain; added Toradol for breakthrough pain -OOB; PT following -Monitor Hmg---stable now -Continue IVF at 50 cc/hr -I will change dressing tomorrow -Await pathology results -Escobar must stay in place for atleast 1 week!!! Attending Statement stable, no BM per ostomy, continue diet and bowel regimen The exam, history, and the medical decision-making described in the above note were completed with the assistance of the mid-level provider. I reviewed and agree with the findings presented. I attest that I had a [id number] encounter with the patient on the same day, and personally performed and documented my assessment and findings in the medical record. Mila Dickerson [facility] Dec 12, 2016 12:17 Dada Kyle MD Dec 16, 2016 23:02
[2016-12-12 12:48] LABS: AUTOMATED NEUTROPHIL # 8.1 TH/MM3 (1.8-7.7); BASOPHIL % 0.3 % (0.0-2.0); EOSINOPHIL # 0.2 TH/MM3 (0-0.4); EOSINOPHIL % 2.3 % (0.0-4.0); HEMATOCRIT 27.4 % (35.0-46.0); HEMO FLAGS DIFF FINAL; LYMPH % 11.4 % (9.0-44.0); LYMPHOCYTE # 1.2 TH/MM3 (1.0-4.8); MEAN CELL VOLUME 83.2 FL (80.0-100.0); MEAN CORPUSCULAR HEMOGLOBIN 28.6 PG (27.0-34.0); MEAN CORPUSCULAR HGB CONC 34.3 % (32.0-36.0); MONO % 7.7 % (0.0-8.0); NEUT % 78.3 % (16.0-70.0); PLATELET COUNT 229 TH/MM3 (150-450); RED BLOOD COUNT 3.29 MIL/MM3 (4.00-5.30); RED CELL DISTRIBUTION WIDTH 14.7 % (11.6-17.2); WHITE BLOOD COUNT 10.4 TH/MM3 (4.0-11.0)
[2016-12-12 13:14] LABS: BICARBONATE 29.4 MEQ/L (21.0-32.0); POTASSIUM 3.7 MEQ/L (3.5-5.1)
[2016-12-12 16:00] VITALS: BP 107/61; PULSE 91; RESP 18; TEMP 98; O2SAT 97
[2016-12-12] MEDS ORDERED: POTASSIUM CHLORIDE 20 MEQ CONTROLLED RELEASE TAB PO ONE (16:45)
[2016-12-12 20:00] VITALS: BP 107/61; PULSE 104; RESP 16; TEMP 98.3; O2SAT 97
[2016-12-12] MEDS: ATORVASTATIN 10 MG TAB PO SCH (21:53)
[2016-12-12] MEDS ORDERED: TEMAZEPAM 7.5 MG CAP PO ONE (22:30)
[2016-12-13] VITALS: BP 105/54; PULSE 84; RESP 16; TEMP 98.5; O2SAT 98
[2016-12-13] MEDS: INSULIN NovoLIN REGULAR SUPPLEMENTAL SCALE SQ SCH (04:44)
[2016-12-13] MEDS: CIPROFLOXACIN/DEXT 400 MG/200 ML IV SCH ×2 (04:44→18:40)
[2016-12-13] MEDS: PCA - TOTAL MG MORPHINE DELIVERED PER SHIFT SCH ×2 (04:45→13:43)
[2016-12-13] MEDS: LEVOTHYROXINE SODIUM 50 MCG TAB PO SCH (04:47)
[2016-12-13 08:00] VITALS: BP 107/56; PULSE 84; RESP 17; TEMP 98.1; O2SAT 99
--- NOTE | 2016-12-13 08:44 | HHI.PR ---
Subjective Remarks This is a pleasant 66 y/o Female with Asthma, Hyperlipidemia, Hyperthyroidism, who has been diagnosed with a Complex Left Pelvic mass, status post Exploratory laparotomy with Pelvic Mass resection, Sigmoidectomy and colostomy by Dr. Jewell, Dr. Calix and Dr. Smith. Had a routine airway for intubation. She received 7 L of crystalloid, 4 units packed red cells, when she had bleeding from deep in pelvis with resection of tumor, repaired left Hypogastric artery and left internal iliac vein, 12/08: Phosphorus today 1.3 was replaced by nurse, Hemoglobin 7.5 considered dilutional by Surgeon, stable at this time asymptomatic, No complaint. 12/09: Seen in her bedroom and discussed with nurse Miss Eckert and her Mr. Gaines, complaint of Headache, will help with Venofer for three days, Potassium replaced and Phosphorus. 12/10: Seen in her bedroom in the presence of her , asked for her Home medicines, Imitrex Levothyroxine, Colostomy working well. 12/11: Stable, no complaint continue management by her Primary Surgeon, her Friend and nurse with her Mrs. Mikki Mcfarlane. 12/12; Has Dysuria, during the night had Fever, turbid urine, taken UA and found pathologic urine, started on Cipro IV by Attending physician the Escobar Cath will need to continue in place for one week more. she is not feeling well and has Dizziness when standing. 12/13: Seen in her bedroom, she is working with Physical Therapy, no complaint, no nausea, vomit or diarrhea, today performed. cystogram and removed SOLO drain and Escobar cath. Objective Vital Signs Date Time Temp Pulse Resp B/P Pulse Ox O2 Delivery O2 Flow Rate FiO2 12/13/16 04:45 17 12/13/16 00:00 98.5 84 16 105/54 98 12/12/16 21:55 18 12/12/16 21:50 Room Air 12/12/16 20:00 98.3 104 16 107/61 97 12/12/16 16:00 98.0 91 18 107/61 97 12/12/16 14:00 18 12/12/16 12:00 98.4 105 18 119/67 100 I/O 12/12/16 12/12/16 12/12/16 12/13/16 12/13/16 12/13/16 07:00 15:00 23:00 07:00 15:00 23:00 Intake Total 360 ml 2098 ml 579 ml Output Total 850 ml 1260 ml 720 ml Balance -490 ml 838 ml -141 ml Intake Oral 360 ml 360 ml 240 ml IV Total 1738 ml 339 ml Output Urine Total 850 ml 1050 ml 700 ml Drainage Total 210 ml 20 ml # Bowel Movements 0 0 0 Result Diagram: 12/12/16 1217 12/12/16 1217 Imaging No new imaging studies Procedures Status post Exploratory Laparotomy with Pelvic Mass Resection, Sigmoidectomy and Colostomy by Dr. Jewell, Dr. Calix and Dr. Smith Other Results Laboratory Tests Test 12/06/16 12/09/16 12/12/16 12/12/16 16:08 05:07 06:30 12:17 Blood Type A POSITIVE Crossmatch Leukocyte-Reduced Red Blood Cells Blood Bank Comment Phosphorus Level 2.3 MG/DL Urine Color LIGHT-YELLOW Urine Turbidity HAZY Urine pH 8.0 Urine Specific [place] 1.010 Urine Protein 30 mg/dL Urine Glucose (UA) NEG mg/dL Urine Ketones NEG mg/dL Urine Occult Blood SMALL Urine Nitrite NEG Urine Bilirubin NEG Urine Urobilinogen LESS THAN 2.0 MG/DL Urine Leukocyte Esterase LARGE Urine RBC 21 /hpf Urine WBC /hpf Urine WBC Clumps MANY Urine Bacteria MANY /hpf Urine Mucus FEW /lpf Microscopic Urinalysis Comment CATH-CULTURE IND White Blood Count 10.4 TH/MM3 Red Blood Count 3.29 MIL/MM3 Hemoglobin 9.4 GM/DL Hematocrit 27.4 % Mean Corpuscular Volume 83.2 FL Mean Corpuscular Hemoglobin 28.6 PG Mean Corpuscular Hemoglobin 34.3 % Concent Red Cell Distribution Width 14.7 % Platelet Count 229 TH/MM3 Mean Platelet Volume 8.9 FL Neutrophils (%) (Auto) 78.3 % Lymphocytes (%) (Auto) 11.4 % Monocytes (%) (Auto) 7.7 % Eosinophils (%) (Auto) 2.3 % Basophils (%) (Auto) 0.3 % Neutrophils # (Auto) 8.1 TH/MM3 Lymphocytes # (Auto) 1.2 TH/MM3 Monocytes # (Auto) 0.8 TH/MM3 Eosinophils # (Auto) 0.2 TH/MM3 Basophils # (Auto) 0.0 TH/MM3 CBC Comment DIFF FINAL Differential Comment Sodium Level 139 MEQ/L Potassium Level 3.7 MEQ/L Chloride Level 102 MEQ/L Carbon Dioxide Level 29.4 MEQ/L Anion Gap 8 MEQ/L Blood Urea Nitrogen 4 MG/DL Creatinine 0.73 MG/DL Estimat Glomerular Filtration 80 ML/MIN Rate Random Glucose 119 MG/DL Calcium Level 8.3 MG/DL Objective Remarks GENERAL: Obesity, well-developed, No distress. HEAD: Atraumatic. Normocephalic. EYES: Pupils equal and round 3 mm and reactive bilaterally. ENT: No nasal bleeding or discharge. Mucous membranes pink and moist. NECK: Trachea midline. No JVD. CARDIOVASCULAR: Regular rate and rhythm, sinus rhythm on the monitor with rate in the 60s. No murmurs rubs or gallops. RESPIRATORY: No accessory muscle use. Clear to auscultation. Breath sounds equal bilaterally. GASTROINTESTINAL: Abdomen soft, tender. Ostomy working. clean surgical wounds and mechanical stitches in place. MUSCULOSKELETAL: Extremities without clubbing, cyanosis, or edema. No obvious deformities. NEUROLOGICAL: Awake and alert. No focal deficits. Medications and IVs Current Medications Medications (Trade) Dose Ordered Sig/Benedicto Route Start Time Stop Time Status Last Admin (Lr 1000 ml Inj) 1,000 ml @ 50 mls/hr Q20H IV 12/06/16 19:29 12/12/16 21:54 (NS Flush) 2 ml UNSCH PRN IV FLUSH 12/06/16 19:30 (NS Flush) 2 ml BID IV FLUSH 12/06/16 21:00 12/12/16 10:30 (Zofran Inj) 4 mg Q6H PRN IV 12/06/16 19:30 12/12/16 10:29 (Benadryl Inj) 25 mg Q6H PRN IV 12/06/16 19:30 (Narcan Inj) 0.4 mg UNSCH PRN IV 12/06/16 19:30 (Morphine 1 Mg/ ml POLYSOMNOGRAPHIC TECHNOLOGIST) 30 mg UNSCH IV 12/06/16 19:30 12/09/16 02:44 POLYSOMNOGRAPHIC TECHNOLOGIST Dosage Infused (Pha) 1 Q8HR .XX 12/06/16 22:00 12/13/16 04:45 (D50w (Vial) Inj) 25 ml UNSCH PRN IV PUSH 12/06/16 19:30 (Glucagon Inj) 1 mg UNSCH PRN OTHER 12/06/16 19:30 (Entereg) 12 mg Q12HR PO 12/07/16 09:00 12/12/16 21:53 (Lipitor) 10 mg HS PO 12/08/16 21:00 12/12/16 21:53 (Tylenol Supp) 650 mg Q6H PRN RECTAL 12/09/16 10:45 (Imitrex) 50 mg DAILY PRN PO 12/09/16 16:15 12/11/16 09:06 (Synthroid) 50 mcg DAILY@0600 PO 12/10/16 11:00 12/13/16 04:47 (Protonix) 40 mg DAILY PO 12/10/16 11:00 12/12/16 10:30 (Imitrex) 25 mg BID PRN PO 12/10/16 10:30 Acetaminophen/ Hydrocodone Bitart 1 tab 1 tab Q4H PRN PO 12/10/16 12:15 12/11/16 23:17 (Cipro 400 Mg Premix) 200 ml @ 200 mls/hr Q12H IV 12/12/16 06:00 12/13/16 04:44 (Toradol Inj) 30 mg Q6H PRN IV PUSH 12/12/16 11:15 12/17/16 11:14 12/12/16 17:54 A/P Assessment and Plan 1. Asthma by history to continue Bronchodilator, Mucolytic and incentive spirometry, early ambulation 2. Hyperlipidemia continue Crestor 5 mg at bedtime 3. Status post Exploratory Laparotomy with Pelvic Mass Resection, Sigmoidectomy and Colostomy by Dr. Jewell, Dr. Calix and Dr. Smith Prior Biopsy high grade Undifferentiated Malignant neoplasm. retail presentation specialist Doctor Corona Henry at [facility], Cystogram no Urinary Bladder leak, removed SOLO drain and Escobar Cath. 4. Anemia Iron deficiency given Venofer Improving to 9.4 4. Hypothyroidism to continue Hormonal replacement by mouth 5. Electrolyte derangement replaced. 6. obesity strongly recommended Diet and exercise. 7. UTI on Cipro and following Urine culture and sensitivities. PROPH: SCDs for DVT prophylaxis. Protonix 40 mg IV daily for stress ulcer prophylaxis. Code Status Full code Discussed Condition With Patient, and nurse Miss Aguayo Discharge Planning per Attending physician. Avel Cao MD Dec 13, 2016 08:44
[2016-12-13] MEDS: ALVIMOPAN 12 MG CAPSULE PO SCH ×2 (08:57→19:56)
[2016-12-13] MEDS: KETOROLAC TROMETHAMINE 30 MG/ML (IVP) VIAL IV PUSH PRN ×2 (08:57→15:41)
[2016-12-13] MEDS: PANTOPRAZOLE SOD 40 MG DELAYED RELEASE TAB PO SCH (08:57)
[2016-12-13] MEDS: SODIUM CHLORIDE 0.9% FLUSH 10 ML FLUSH IV FLUSH SCH ×2 (08:57→19:57)
[2016-12-13 12:00] VITALS: BP 112/65; PULSE 94; RESP 17; TEMP 98.8; O2SAT 98
[2016-12-13] MEDS ORDERED: TEMAZEPAM 15 MG CAP PO PRN (12:00)
[2016-12-13] MEDS: LACTATED RINGER'S 1000 ML INJ 1,000 ML IV SCH (15:41)
[2016-12-13] MEDS ORDERED: DIATRIZOATE MEG 30% 300 ML BOTTLE (for RAD DIAG) I-VESICULR ONE (16:59)
--- NOTE | 2016-12-13 17:16 | RADRPT ---
EXAM DATE/TIME: 12/13/2016 16:23 [place] COMPARISON: No previous studies available for comparison. INDICATIONS : Post bladder repair after pelvic tumor removal. 0.7 minutes 13 CONTRAST: 200 cc Cystografin MEDICAL HISTORY : Urinary tract infection. SURGICAL HISTORY : Colostomy. Pelvic tumor removal. ENCOUNTER: Initial ACUITY: 1 day PAIN SCORE: 5/10 LOCATION: Bilateral Bladder. FINDINGS: Preliminary film demonstrates a double J stent on the left side with the distal stent kinked and narr owed. There is a surgical drain in the right lower quadrant.. Following placement of a Escobar catheter the bladder was filled in retrograde fashion to adequate dist ention and post images in multiple obliquities were obtained. Bladder margins are smooth. No evidence of leak. On post void film, there is a only a minimal resid ual within the bladder. CONCLUSION: No evidence of bladder leak. Rudy Hurtado MD on December 13, 2016 at 17:13 Board Certified Radiologist. This report was verified electronically.
[2016-12-13] MEDS ORDERED: MORPHINE SULFATE 4 MG/ML INJ IV PUSH PRN (17:45)
[2016-12-13] MEDS ORDERED: MAGNESIUM HYDROXIDE SUSP 30 ML CUP PO ONE (18:00)
--- NOTE | 2016-12-13 18:05 | HHI.PR ---
Subjective Subjective Notes c/o dysuria Objective Vitals/I&O Vital Signs Date Time Temp Pulse Resp B/P Pulse Ox O2 Delivery O2 Flow Rate FiO2 12/13/16 12:00 98.8 94 17 112/65 98 12/12/16 21:50 Room Air Labs Date/Time Procedure Status Source Growth 12/12/16 06:30 Urine Culture - Preliminary Resulted Urine Catheterized Urine Gram Negative Michael Cardiovascular: Regular Lungs: Clear Abdomen: Non-distended, Post-op tenderness Extremities: No edema, Perfused Narrative Exam ostomy pink, viable A/P Problem List: (1) Carcinomatosis (2) Pelvic mass in female (3) Bleeding Assessment and Plan 66yo s/p resection of pelvic mass, stable. cystogram negative for leak, DC drain and otoole Dada Kyle MD Dec 13, 2016 18:05
[2016-12-13] MEDS: PHENAZOPYRIDINE HCL 100 MG TAB PO PRN (18:44)
[2016-12-13] MEDS: ATORVASTATIN 10 MG TAB PO SCH (19:56)
[2016-12-13 20:00] VITALS: BP 115/64; PULSE 95; RESP 18; TEMP 98.7; O2SAT 96
[2016-12-14] VITALS: BP 113/61; PULSE 96; RESP 18; TEMP 100.7; O2SAT 96
[2016-12-14] MEDS: ACETAMINOPHEN/HYDROcodone 325 MG/5 MG TAB PO PRN (02:10)
[2016-12-14] MEDS: PHENAZOPYRIDINE HCL 100 MG TAB PO PRN ×2 (05:10→21:15)
[2016-12-14] MEDS: LEVOTHYROXINE SODIUM 50 MCG TAB PO SCH (05:10)
[2016-12-14] MEDS: CIPROFLOXACIN/DEXT 400 MG/200 ML IV SCH (05:10)
[2016-12-14] MEDS: ALVIMOPAN 12 MG CAPSULE PO SCH ×2 (07:49→21:16)
[2016-12-14] MEDS: PANTOPRAZOLE SOD 40 MG DELAYED RELEASE TAB PO SCH (07:49)
[2016-12-14] MEDS: SODIUM CHLORIDE 0.9% FLUSH 10 ML FLUSH IV FLUSH SCH ×2 (07:49→21:17)
[2016-12-14 08:00] VITALS: BP 101/54; PULSE 75; RESP 16; TEMP 97.3; O2SAT 96
--- NOTE | 2016-12-14 09:56 | HHI.PR ---
Subjective Remarks This is a pleasant 66 y/o Female with Asthma, Hyperlipidemia, Hyperthyroidism, who has been diagnosed with a Complex Left Pelvic mass, status post Exploratory laparotomy with Pelvic Mass resection, Sigmoidectomy and colostomy by Dr. Jewell, Dr. Calix and Dr. Smith. Had a routine airway for intubation. She received 7 L of crystalloid, 4 units packed red cells, when she had bleeding from deep in pelvis with resection of tumor, repaired left Hypogastric artery and left internal iliac vein, 12/08: Phosphorus today 1.3 was replaced by nurse, Hemoglobin 7.5 considered dilutional by Surgeon, stable at this time asymptomatic, No complaint. 12/09: Seen in her bedroom and discussed with nurse Tomeka and her Mr. Gaines, complaint of Headache, will help with Venofer for three days, Potassium replaced and Phosphorus. 12/10: Seen in her bedroom in the presence of her , asked for her Home medicines, Imitrex Levothyroxine, Colostomy working well. 12/11: Stable, no complaint continue management by her Primary Surgeon, her Friend and nurse with her Mrs. Mikki Mcfarlane. 12/12; Has Dysuria, during the night had Fever, turbid urine, taken UA and found pathologic urine, started on Cipro IV by Attending physician the Escobar Cath will need to continue in place for one week more. she is not feeling well and has Dizziness when standing. 12/13: Seen in her bedroom, she is working with Physical Therapy, no complaint, cystogram no urinary bladder leak and removed SOLO drain and Escobar cath. : Urinary Culture Enterobacter Cloacae Resistant to Cipro, switch to Ceftriaxone, patient had fever during the night. discussed with Nurse Miss Saucedo and with patient and her Friend in the room Mrs. Mikki Mcfarlane. no nausea, vomit or diarrhea. Objective Vital Signs Date Time Temp Pulse Resp B/P Pulse Ox O2 Delivery O2 Flow Rate FiO2 12/14/16 08:00 97.3 75 16 101/54 96 12/14/16 00:00 100.7 96 18 113/61 96 12/13/16 20:00 98.7 95 18 115/64 96 12/13/16 20:00 Room Air 12/13/16 12:00 98.8 94 17 112/65 98 I/O 4/12/13/16 12/13/16 12/14/16 12/14/16 12/14/16 07:00 15:00 23:00 07:00 15:00 23:00 Intake Total 579 ml 761 ml 671 ml 560 ml Output Total 720 ml 840 ml 450 ml Balance -141 ml -79 ml 671 ml 110 ml Intake Oral 240 ml 240 ml 360 ml 360 ml IV Total 339 ml 521 ml 311 ml 200 ml Output Urine Total 700 ml 800 ml 450 ml Drainage Total 20 ml 40 ml # Bowel Movements 0 0 0 Result Diagram: 12/12/16 1217 12/12/16 1217 Imaging Last Impressions Cystogram X-Ray 12/13/16 0000 Signed Impressions: Service Date/Time: Tuesday, December 13, 2016 16:23 - CONCLUSION: No evidence of bladder leak. Rudy Hurtado MD Procedures Status post Exploratory Laparotomy with Pelvic Mass Resection, Sigmoidectomy and Colostomy by Dr. Jewell, Dr. Calix and Dr. Smith Other Results Laboratory Tests Test 12/12/16 12/12/16 06:30 12:17 Urine Color LIGHT-YELLOW Urine Turbidity HAZY Urine pH 8.0 Urine Specific [place] 1.010 Urine Protein 30 mg/dL Urine Glucose (UA) NEG mg/dL Urine Ketones NEG mg/dL Urine Occult Blood SMALL Urine Nitrite NEG Urine Bilirubin NEG Urine Urobilinogen LESS THAN 2.0 MG/DL Urine Leukocyte Esterase LARGE Urine RBC 21 /hpf Urine WBC /hpf Urine WBC Clumps MANY Urine Bacteria MANY /hpf Urine Mucus FEW /lpf Microscopic Urinalysis Comment CATH-CULTURE IND White Blood Count 10.4 TH/MM3 Red Blood Count 3.29 MIL/MM3 Hemoglobin 9.4 GM/DL Hematocrit 27.4 % Mean Corpuscular Volume 83.2 FL Mean Corpuscular Hemoglobin 28.6 PG Mean Corpuscular Hemoglobin 34.3 % Concent Red Cell Distribution Width 14.7 % Platelet Count 229 TH/MM3 Mean Platelet Volume 8.9 FL Neutrophils (%) (Auto) 78.3 % Lymphocytes (%) (Auto) 11.4 % Monocytes (%) (Auto) 7.7 % Eosinophils (%) (Auto) 2.3 % Basophils (%) (Auto) 0.3 % Neutrophils # (Auto) 8.1 TH/MM3 Lymphocytes # (Auto) 1.2 TH/MM3 Monocytes # (Auto) 0.8 TH/MM3 Eosinophils # (Auto) 0.2 TH/MM3 Basophils # (Auto) 0.0 TH/MM3 CBC Comment DIFF FINAL Differential Comment Sodium Level 139 MEQ/L Potassium Level 3.7 MEQ/L Chloride Level 102 MEQ/L Carbon Dioxide Level 29.4 MEQ/L Anion Gap 8 MEQ/L Blood Urea Nitrogen 4 MG/DL Creatinine 0.73 MG/DL Estimat Glomerular Filtration 80 ML/MIN Rate Random Glucose 119 MG/DL Calcium Level 8.3 MG/DL Objective Remarks GENERAL: Obesity, well-developed, No distress. HEAD: Atraumatic. Normocephalic. EYES: Pupils equal and round 3 mm and reactive bilaterally. ENT: No nasal bleeding or discharge. Mucous membranes pink and moist. NECK: Trachea midline. No JVD. CARDIOVASCULAR: Regular rate and rhythm, sinus rhythm on the monitor with rate in the 60s. No murmurs rubs or gallops. RESPIRATORY: No accessory muscle use. Clear to auscultation. Breath sounds equal bilaterally. GASTROINTESTINAL: Abdomen soft, tender. Ostomy. clean surgical wounds and mechanical stitches in place. MUSCULOSKELETAL: Extremities without clubbing, cyanosis, or edema. No obvious deformities. NEUROLOGICAL: Awake and alert. No focal deficits. Medications and IVs Current Medications Medications (Trade) Dose Ordered Sig/Benedicto Route Start Time Stop Time Status Last Admin (NS Flush) 2 ml UNSCH PRN IV FLUSH 12/06/16 19:30 (NS Flush) 2 ml BID IV FLUSH 12/06/16 21:00 12/14/16 07:49 (Zofran Inj) 4 mg Q6H PRN IV 12/06/16 19:30 12/12/16 10:29 (Benadryl Inj) 25 mg Q6H PRN IV 12/06/16 19:30 (Entereg) 12 mg Q12HR PO 12/07/16 09:00 12/14/16 07:49 (Lipitor) 10 mg HS PO 12/08/16 21:00 12/13/16 19:56 (Tylenol Supp) 650 mg Q6H PRN RECTAL 12/09/16 10:45 (Imitrex) 50 mg DAILY PRN PO 12/09/16 16:15 12/11/16 09:06 (Synthroid) 50 mcg DAILY@0600 PO 12/10/16 11:00 12/14/16 05:10 (Protonix) 40 mg DAILY PO 12/10/16 11:00 12/14/16 07:49 Acetaminophen/ Hydrocodone Bitart 1 tab 1 tab Q4H PRN PO 12/10/16 12:15 12/14/16 02:10 (Cipro 400 Mg Premix) 200 ml @ 200 mls/hr Q12H IV 12/12/16 06:00 12/14/16 05:10 (Toradol Inj) 30 mg Q6H PRN IV PUSH 12/12/16 11:15 12/17/16 11:14 12/13/16 15:41 (Restoril) 15 mg HS PRN PO 12/13/16 12:00 (Pyridium) 100 mg Q8H PRN PO 12/13/16 17:45 12/14/16 05:10 (Morphine Inj) 2 mg Q3H PRN IV PUSH 12/13/16 17:45 A/P Assessment and Plan 1. Asthma by history to continue Bronchodilator, Mucolytic and incentive spirometry, early ambulation 2. Hyperlipidemia continue Crestor 5 mg at bedtime 3. Status post Exploratory Laparotomy with Pelvic Mass Resection, Sigmoidectomy and Colostomy by Dr. Jewell, Dr. Calix and Dr. Smith Prior Biopsy high grade Undifferentiated Malignant neoplasm. credit administration specialist Doctor Corona Henry at [facility], Cystogram no Urinary Bladder leak, removed SOLO drain and Escobar Cath. 4. Anemia Iron deficiency given Venofer Improving to 9.4 4. Hypothyroidism to continue Hormonal replacement by mouth 5. Electrolyte derangement replaced. 6. obesity strongly recommended Diet and exercise. 7. UTI was on Ciprofloxacin and her Urine culture gave Enterobacter Cloacae resistant to Cipro, discontinue and switched to Ceftriaxone. 8. Constipation given Milk of Mag by attending. PROPH: SCDs for DVT prophylaxis. Protonix 40 mg IV daily for stress ulcer prophylaxis. Code Status Full code Discussed Condition With Patient, her Friend Mrs. Mikki Mcfarlane and nurse Miss Saucedo Discharge Planning per Attending physician. Avel Cao MD Dec 14, 2016 09:56
[2016-12-14] MEDS: cefTRIAXone INJ 1,000 MG in SODIUM CHLORIDE 0.9% INJ 100 ML IV SCH (11:16)
[2016-12-14 12:00] VITALS: BP 108/58; PULSE 78; RESP 17; TEMP 97.7; O2SAT 96
[2016-12-14] MEDS: IBUPROFEN 600 MG TAB PO PRN (17:42)
--- NOTE | 2016-12-14 18:41 | HHI.PR ---
Subjective Subjective Notes feels better Objective Vitals/I&O Vital Signs Date Time Temp Pulse Resp B/P Pulse Ox O2 Delivery O2 Flow Rate FiO2 12/14/16 12:00 97.7 78 17 108/58 96 12/13/16 20:00 Room Air Labs Date/Time Procedure Status Source Growth 12/12/16 06:30 Urine Culture - Final Complete Urine Catheterized Urine Enterobacter Cloacae Cardiovascular: Regular Lungs: Clear Abdomen: Non-distended, Non-tender Extremities: No edema Narrative Exam ostomy pink, viable A/P Problem List: (1) Carcinomatosis (2) Pelvic mass in female (3) Bleeding Assessment and Plan 66yo s/p resection of pelvic mass, stable. rosalee PO, await bowel function Dada Kyle MD Dec 14, 2016 18:41
[2016-12-14 20:00] VITALS: BP 114/59; PULSE 91; RESP 16; TEMP 97.5; O2SAT 97
[2016-12-14] MEDS: ATORVASTATIN 10 MG TAB PO SCH (21:16)
[2016-12-14 23:42] VITALS: BP 107/58; PULSE 73; RESP 16; TEMP 97.8; O2SAT 99
[2016-12-15] MEDS: LEVOTHYROXINE SODIUM 50 MCG TAB PO SCH (05:05)
[2016-12-15] MEDS: PHENAZOPYRIDINE HCL 100 MG TAB PO PRN ×2 (05:05→21:32)
[2016-12-15] MEDS: IBUPROFEN 600 MG TAB PO PRN (05:05)
[2016-12-15 05:49] LABS: AUTOMATED NEUTROPHIL # 2.9 TH/MM3 (1.8-7.7); BASOPHIL # 0.1 TH/MM3 (0-0.2); BASOPHIL % 0.9 % (0.0-2.0); EOSINOPHIL # 0.4 TH/MM3 (0-0.4); EOSINOPHIL % 6.7 % (0.0-4.0); HEMATOCRIT 27.1 % (35.0-46.0); HEMO FLAGS DIFF FINAL; LYMPHOCYTE # 1.6 TH/MM3 (1.0-4.8); MEAN CELL VOLUME 84.6 FL (80.0-100.0); MEAN CORPUSCULAR HEMOGLOBIN 28.1 PG (27.0-34.0); MEAN CORPUSCULAR HGB CONC 33.3 % (32.0-36.0); MONO % 11.5 % (0.0-8.0); NEUT % 52.9 % (16.0-70.0); PLATELET COUNT 252 TH/MM3 (150-450); RED CELL DISTRIBUTION WIDTH 15.3 % (11.6-17.2); WHITE BLOOD COUNT 5.5 TH/MM3 (4.0-11.0)
[2016-12-15 06:22] LABS: BICARBONATE 28.4 MEQ/L (21.0-32.0); MAGNESIUM 2.6 MG/DL (1.5-2.5); POTASSIUM 3.9 MEQ/L (3.5-5.1)
[2016-12-15 08:00] VITALS: BP 110/56; PULSE 73; RESP 18; TEMP 97; O2SAT 97
--- NOTE | 2016-12-15 08:34 | HHI.PR ---
Subjective Remarks This is a pleasant 66 y/o Female with Asthma, Hyperlipidemia, Hyperthyroidism, who has been diagnosed with a Complex Left Pelvic mass, status post Exploratory laparotomy with Pelvic Mass resection, Sigmoidectomy and colostomy by Dr. Jewell, Dr. Calix and Dr. Smith. Had a routine airway for intubation. She received 7 L of crystalloid, 4 units packed red cells, when she had bleeding from deep in pelvis with resection of tumor, repaired left Hypogastric artery and left internal iliac vein, 12/08: Phosphorus today 1.3 was replaced by nurse, Hemoglobin 7.5 considered dilutional by Surgeon, stable at this time asymptomatic, No complaint. 12/09: Seen in her bedroom and discussed with nurse Tomeka and her Mr. Gaines, complaint of Headache, will help with Venofer for three days, Potassium replaced and Phosphorus. 12/10: Seen in her bedroom in the presence of her , asked for her Home medicines, Imitrex Levothyroxine, Colostomy working well. 12/11: Stable, no complaint continue management by her Primary Surgeon, her Friend and nurse with her Mrs. Mikki Mcfarlane. 12/12; Has Dysuria, during the night had Fever, turbid urine, taken UA and found pathologic urine, started on Cipro IV by Attending physician the Escobar Cath will need to continue in place for one week more. she is not feeling well and has Dizziness when standing. 12/13: Seen in her bedroom, she is working with Physical Therapy, no complaint, cystogram no urinary bladder leak and removed SOLO drain and Escobar cath. : Urinary Culture Enterobacter Cloacae Resistant to Cipro, switch to Ceftriaxone, patient had fever during the night. discussed with Nurse Miss Saucedo and with patient and her Friend in the room Mrs. Mikki Mcfarlane. 12/15: seen in the presence of her and nurse, No nausea, vomit or diarrhea, asking for NSAIDs started by her Attending physician Objective Vital Signs Date Time Temp Pulse Resp B/P Pulse Ox O2 Delivery O2 Flow Rate FiO2 12/15/16 06:27 16 12/14/16 23:42 97.8 73 16 107/58 99 12/14/16 20:00 97.5 91 16 114/59 97 12/14/16 12:00 97.7 78 17 108/58 96 I/O 12/14/16 12/14/16 12/14/16 12/15/16 12/15/16 12/15/16 07:00 15:00 23:00 07:00 15:00 23:00 Intake Total 560 ml 330 ml 420 ml 240 ml Output Total 450 ml 1000 ml 700 ml 700 ml Balance 110 ml -670 ml -280 ml -460 ml Intake Oral 360 ml 240 ml 420 ml 240 ml IV Total 200 ml 90 ml Output Urine Total 450 ml 1000 ml 700 ml 700 ml # Bowel Movements 0 0 0 0 Result Diagram: 12/15/16 0515 12/15/16 0515 Imaging Last Impressions Cystogram X-Ray 12/13/16 0000 Signed Impressions: Service Date/Time: Tuesday, December 13, 2016 16:23 - CONCLUSION: No evidence of bladder leak. Rudy Hurtado MD Procedures Status post Exploratory Laparotomy with Pelvic Mass Resection, Sigmoidectomy and Colostomy by Dr. Jewell, Dr. Calix and Dr. Smith Other Results Laboratory Tests Test 12/12/16 12/15/16 06:30 05:15 Urine Color LIGHT-YELLOW Urine Turbidity HAZY Urine pH 8.0 Urine Specific [place] 1.010 Urine Protein 30 mg/dL Urine Glucose (UA) NEG mg/dL Urine Ketones NEG mg/dL Urine Occult Blood SMALL Urine Nitrite NEG Urine Bilirubin NEG Urine Urobilinogen LESS THAN 2.0 MG/DL Urine Leukocyte Esterase LARGE Urine RBC 21 /hpf Urine WBC /hpf Urine WBC Clumps MANY Urine Bacteria MANY /hpf Urine Mucus FEW /lpf Microscopic Urinalysis Comment CATH-CULTURE IND White Blood Count 5.5 TH/MM3 Red Blood Count 3.20 MIL/MM3 Hemoglobin 9.0 GM/DL Hematocrit 27.1 % Mean Corpuscular Volume 84.6 FL Mean Corpuscular Hemoglobin 28.1 PG Mean Corpuscular Hemoglobin 33.3 % Concent Red Cell Distribution Width 15.3 % Platelet Count 252 TH/MM3 Mean Platelet Volume 8.9 FL Neutrophils (%) (Auto) 52.9 % Lymphocytes (%) (Auto) 28.0 % Monocytes (%) (Auto) 11.5 % Eosinophils (%) (Auto) 6.7 % Basophils (%) (Auto) 0.9 % Neutrophils # (Auto) 2.9 TH/MM3 Lymphocytes # (Auto) 1.6 TH/MM3 Monocytes # (Auto) 0.6 TH/MM3 Eosinophils # (Auto) 0.4 TH/MM3 Basophils # (Auto) 0.1 TH/MM3 CBC Comment DIFF FINAL Differential Comment Sodium Level 142 MEQ/L Potassium Level 3.9 MEQ/L Chloride Level 108 MEQ/L Carbon Dioxide Level 28.4 MEQ/L Anion Gap 6 MEQ/L Blood Urea Nitrogen 8 MG/DL Creatinine 0.66 MG/DL Estimat Glomerular Filtration 90 ML/MIN Rate Random Glucose 99 MG/DL Calcium Level 8.2 MG/DL Phosphorus Level 3.5 MG/DL Magnesium Level 2.6 MG/DL Objective Remarks GENERAL: Obesity, well-developed, No distress. HEAD: Atraumatic. Normocephalic. EYES: Pupils equal and round 3 mm and reactive bilaterally. ENT: No nasal bleeding or discharge. Mucous membranes pink and moist. NECK: Trachea midline. No JVD. CARDIOVASCULAR: Regular rate and rhythm, sinus rhythm on the monitor with rate in the 60s. No murmurs rubs or gallops. RESPIRATORY: No accessory muscle use. Clear to auscultation. Breath sounds equal bilaterally. GASTROINTESTINAL: Abdomen soft, tender. Ostomy. clean surgical wounds and mechanical stitches in place. MUSCULOSKELETAL: Extremities without clubbing, cyanosis, or edema. No obvious deformities. NEUROLOGICAL: Awake and alert. No focal deficits. Medications and IVs Current Medications Medications (Trade) Dose Ordered Sig/Benedicto Route Start Time Stop Time Status Last Admin (NS Flush) 2 ml UNSCH PRN IV FLUSH 12/06/16 19:30 (NS Flush) 2 ml BID IV FLUSH 12/06/16 21:00 12/14/16 21:17 (Zofran Inj) 4 mg Q6H PRN IV 12/06/16 19:30 12/12/16 10:29 (Benadryl Inj) 25 mg Q6H PRN IV 12/06/16 19:30 (Entereg) 12 mg Q12HR PO 12/07/16 09:00 12/14/16 21:16 (Lipitor) 10 mg HS PO 12/08/16 21:00 12/14/16 21:16 (Tylenol Supp) 650 mg Q6H PRN RECTAL 12/09/16 10:45 (Imitrex) 50 mg DAILY PRN PO 12/09/16 16:15 12/11/16 09:06 (Synthroid) 50 mcg DAILY@0600 PO 12/10/16 11:00 12/15/16 05:05 (Protonix) 40 mg DAILY PO 12/10/16 11:00 12/14/16 07:49 (Hermosa 5-325 Mg) 1 tab Q4H PRN PO 12/10/16 12:15 12/14/16 02:10 (Toradol Inj) 30 mg Q6H PRN IV PUSH 12/12/16 11:15 12/17/16 11:14 12/13/16 15:41 (Restoril) 15 mg HS PRN PO 12/13/16 12:00 (Pyridium) 100 mg Q8H PRN PO 12/13/16 17:45 12/15/16 05:05 Morphine Sulfate 2 mg 2 mg Q3H PRN IV PUSH 12/13/16 17:45 (Rocephin Inj/NS Inj) 100 ml @ 200 mls/hr Q24H IV 12/14/16 10:00 12/14/16 11:16 (Motrin) 600 mg Q8H PRN PO 12/14/16 17:15 12/15/16 05:05 A/P Assessment and Plan 1. Asthma by history to continue Bronchodilator, Mucolytic and incentive spirometry, early ambulation 2. Hyperlipidemia continue Crestor 5 mg at bedtime 3. Status post Exploratory Laparotomy with Pelvic Mass Resection, Sigmoidectomy and Colostomy by Dr. Jewell, Dr. Calix and Dr. Smith Prior Biopsy high grade Undifferentiated Malignant neoplasm. card services specialist Doctor Corona Henry at [facility], Cystogram no Urinary Bladder leak, removed SOLO drain and Escobar Cath. 4. Anemia Iron deficiency given Venofer Improving to 9.0 4. Hypothyroidism to continue Hormonal replacement by mouth 5. Electrolyte derangement replaced. 6. obesity strongly recommended Diet and exercise. 7. UTI was on Ciprofloxacin and her Urine culture gave Enterobacter Cloacae resistant to Cipro, discontinue and switched to Ceftriaxone. 8. Constipation given Milk of Mag by attending. PROPH: SCDs for DVT prophylaxis. Protonix 40 mg IV daily for stress ulcer prophylaxis. Code Status Full code Discussed Condition With Patient, her and nurse. Discharge Planning per Attending physician. Avel Cao MD Dec 15, 2016 08:34
[2016-12-15] MEDS: PANTOPRAZOLE SOD 40 MG DELAYED RELEASE TAB PO SCH (09:23)
[2016-12-15] MEDS: ALVIMOPAN 12 MG CAPSULE PO SCH (09:23)
[2016-12-15] MEDS: SODIUM CHLORIDE 0.9% FLUSH 10 ML FLUSH IV FLUSH SCH ×2 (09:24→21:00)
[2016-12-15] MEDS: KETOROLAC TROMETHAMINE 30 MG/ML (IVP) VIAL IV PUSH PRN (09:32)
[2016-12-15] MEDS: cefTRIAXone INJ 1,000 MG in SODIUM CHLORIDE 0.9% INJ 100 ML IV SCH (09:32)
[2016-12-15 12:00] VITALS: BP 94/59; PULSE 89; RESP 20; TEMP 97.9; O2SAT 97
--- NOTE | 2016-12-15 12:56 | HHI.PR ---
Subjective Subjective Notes feels well, no BM per ostomy yet, +flatus Objective Vitals/I&O Vital Signs Date Time Temp Pulse Resp B/P Pulse Ox O2 Delivery O2 Flow Rate FiO2 12/15/16 12:00 97.9 89 20 94/59 97 12/13/16 20:00 Room Air Labs Laboratory Tests Test 12/15/16 05:15 White Blood Count 5.5 Red Blood Count 3.20 Hemoglobin 9.0 Hematocrit 27.1 Mean Corpuscular Volume 84.6 Mean Corpuscular Hemoglobin 28.1 Mean Corpuscular Hemoglobin 33.3 Concent Red Cell Distribution Width 15.3 Platelet Count 252 Mean Platelet Volume 8.9 Neutrophils (%) (Auto) 52.9 Lymphocytes (%) (Auto) 28.0 Monocytes (%) (Auto) 11.5 Eosinophils (%) (Auto) 6.7 Basophils (%) (Auto) 0.9 Neutrophils # (Auto) 2.9 Lymphocytes # (Auto) 1.6 Monocytes # (Auto) 0.6 Eosinophils # (Auto) 0.4 Basophils # (Auto) 0.1 CBC Comment DIFF FINAL Differential Comment Sodium Level 142 Potassium Level 3.9 Chloride Level 108 Carbon Dioxide Level 28.4 Anion Gap 6 Blood Urea Nitrogen 8 Creatinine 0.66 Estimat Glomerular Filtration 90 Rate Random Glucose 99 Calcium Level 8.2 Phosphorus Level 3.5 Magnesium Level 2.6 Date/Time Procedure Status Source Growth 12/12/16 06:30 Urine Culture - Final Complete Urine Catheterized Urine Enterobacter Cloacae Cardiovascular: Regular Lungs: Clear Abdomen: Non-distended, Non-tender Extremities: No edema Narrative Exam ostomy pink, viable A/P Problem List: (1) Carcinomatosis (2) Pelvic mass in female (3) Bleeding Assessment and Plan 66yo s/p resection of pelvic mass, stable. rosalee PO, await bowel function, digitalized ostomy, +stool add Dada Rosenberg MD Dec 15, 2016 12:55
[2016-12-15] MEDS ORDERED: MAGNESIUM HYDROXIDE SUSP 30 ML CUP PO ONE (13:00)
[2016-12-15] MEDS ORDERED: NAPROXEN 250 MG TAB PO PRN (13:00)
[2016-12-15] MEDS: DOCUSATE SODIUM 100 MG CAP PO SCH ×2 (13:07→21:31)
[2016-12-15 16:00] VITALS: BP 96/55; PULSE 83; RESP 18; TEMP 97.6; O2SAT 97
[2016-12-15 20:00] VITALS: BP 117/67; PULSE 89; RESP 18; TEMP 97.9; O2SAT 98
[2016-12-15] MEDS: ATORVASTATIN 10 MG TAB PO SCH (21:31)
[2016-12-16] VITALS: BP 114/55; PULSE 88; RESP 18; TEMP 97.8; O2SAT 98
[2016-12-16] MEDS: LEVOTHYROXINE SODIUM 50 MCG TAB PO SCH (06:24)
[2016-12-16 08:00] VITALS: BP 122/67; PULSE 95; RESP 20; TEMP 98.2; O2SAT 99
[2016-12-16] MEDS: PHENAZOPYRIDINE HCL 100 MG TAB PO PRN ×2 (08:36→19:37)
[2016-12-16] MEDS: PANTOPRAZOLE SOD 40 MG DELAYED RELEASE TAB PO SCH (08:37)
[2016-12-16] MEDS: DOCUSATE SODIUM 100 MG CAP PO SCH ×2 (08:37→21:00)
[2016-12-16] MEDS: cefTRIAXone INJ 1,000 MG in SODIUM CHLORIDE 0.9% INJ 100 ML IV SCH (08:37)
[2016-12-16] MEDS: SODIUM CHLORIDE 0.9% FLUSH 10 ML FLUSH IV FLUSH SCH ×2 (08:38→21:21)
--- NOTE | 2016-12-16 10:25 | HHI.PR ---
Subjective Remarks This is a pleasant 66 y/o Female with Asthma, Hyperlipidemia, Hyperthyroidism, who has been diagnosed with a Complex Left Pelvic mass, status post Exploratory laparotomy with Pelvic Mass resection, Sigmoidectomy and colostomy by Dr. Jewell, Dr. Calix and Dr. Smith. Had a routine airway for intubation. She received 7 L of crystalloid, 4 units packed red cells, when she had bleeding from deep in pelvis with resection of tumor, repaired left Hypogastric artery and left internal iliac vein, 12/08: Phosphorus today 1.3 was replaced by nurse, Hemoglobin 7.5 considered dilutional by Surgeon, stable at this time asymptomatic, No complaint. 12/09: Seen in her bedroom and discussed with nurse Tomeka and her Mr. Gaines, complaint of Headache, will help with Venofer for three days, Potassium replaced and Phosphorus. 12/10: Seen in her bedroom in the presence of her , asked for her Home medicines, Imitrex Levothyroxine, Colostomy working well. 12/11: Stable, no complaint continue management by her Primary Surgeon, her Friend and nurse with her Mrs. Mikki Mcfarlane. 12/12; Has Dysuria, during the night had Fever, turbid urine, taken UA and found pathologic urine, started on Cipro IV by Attending physician the Escobar Cath will need to continue in place for one week more. she is not feeling well and has Dizziness when standing. 12/13: Seen in her bedroom, she is working with Physical Therapy, no complaint, cystogram no urinary bladder leak and removed SOLO drain and Escobar cath. : Urinary Culture Enterobacter Cloacae Resistant to Cipro, switch to Ceftriaxone, patient had fever during the night. discussed with Nurse Miss Saucedo and with patient and her Friend in the room Mrs. Mikki Mcfarlane. 12/15: seen in the presence of her and nurse, asking for NSAIDs started by her Attending physician 12/16: Stable, no nausea, vomit or diarrhea. no abdominal pain, continue constipated asking for Milk of mag placed in her medicines. Objective Vital Signs Date Time Temp Pulse Resp B/P Pulse Ox O2 Delivery O2 Flow Rate FiO2 12/16/16 00:00 97.8 88 18 114/55 98 12/15/16 20:00 97.9 89 18 117/67 98 12/15/16 16:00 97.6 83 18 96/55 97 12/15/16 12:00 97.9 89 20 94/59 97 I/O 12/15/16 12/15/16 12/15/16 12/16/16 12/16/16 12/16/16 07:00 15:00 23:00 07:00 15:00 23:00 Intake Total 240 ml 1300 ml 240 ml 240 ml Output Total 700 ml 1000 ml 1000 ml 800 ml Balance -460 ml 300 ml -760 ml -560 ml Intake Oral 240 ml 1200 ml 240 ml 240 ml IV Total 100 ml 0 ml Output Urine Total 700 ml 1000 ml 1000 ml 800 ml Stool Total 0 ml # Bowel Movements 0 0 0 Result Diagram: 12/15/16 0515 12/15/16 0515 Imaging Last Impressions Cystogram X-Ray 12/13/16 0000 Signed Impressions: Service Date/Time: Tuesday, December 13, 2016 16:23 - CONCLUSION: No evidence of bladder leak. Rudy Hurtado MD Procedures Status post Exploratory Laparotomy with Pelvic Mass Resection, Sigmoidectomy and Colostomy by Dr. Jewell, Dr. Calix and Dr. Smith Other Results Laboratory Tests Test 12/12/16 12/15/16 06:30 05:15 Urine Color LIGHT-YELLOW Urine Turbidity HAZY Urine pH 8.0 Urine Specific [place] 1.010 Urine Protein 30 mg/dL Urine Glucose (UA) NEG mg/dL Urine Ketones NEG mg/dL Urine Occult Blood SMALL Urine Nitrite NEG Urine Bilirubin NEG Urine Urobilinogen LESS THAN 2.0 MG/DL Urine Leukocyte Esterase LARGE Urine RBC 21 /hpf Urine WBC /hpf Urine WBC Clumps MANY Urine Bacteria MANY /hpf Urine Mucus FEW /lpf Microscopic Urinalysis Comment CATH-CULTURE IND White Blood Count 5.5 TH/MM3 Red Blood Count 3.20 MIL/MM3 Hemoglobin 9.0 GM/DL Hematocrit 27.1 % Mean Corpuscular Volume 84.6 FL Mean Corpuscular Hemoglobin 28.1 PG Mean Corpuscular Hemoglobin 33.3 % Concent Red Cell Distribution Width 15.3 % Platelet Count 252 TH/MM3 Mean Platelet Volume 8.9 FL Neutrophils (%) (Auto) 52.9 % Lymphocytes (%) (Auto) 28.0 % Monocytes (%) (Auto) 11.5 % Eosinophils (%) (Auto) 6.7 % Basophils (%) (Auto) 0.9 % Neutrophils # (Auto) 2.9 TH/MM3 Lymphocytes # (Auto) 1.6 TH/MM3 Monocytes # (Auto) 0.6 TH/MM3 Eosinophils # (Auto) 0.4 TH/MM3 Basophils # (Auto) 0.1 TH/MM3 CBC Comment DIFF FINAL Differential Comment Sodium Level 142 MEQ/L Potassium Level 3.9 MEQ/L Chloride Level 108 MEQ/L Carbon Dioxide Level 28.4 MEQ/L Anion Gap 6 MEQ/L Blood Urea Nitrogen 8 MG/DL Creatinine 0.66 MG/DL Estimat Glomerular Filtration 90 ML/MIN Rate Random Glucose 99 MG/DL Calcium Level 8.2 MG/DL Phosphorus Level 3.5 MG/DL Magnesium Level 2.6 MG/DL Objective Remarks GENERAL: Obesity, well-developed, No distress. HEAD: Atraumatic. Normocephalic. EYES: Pupils equal and round 3 mm and reactive bilaterally. ENT: No nasal bleeding or discharge. Mucous membranes pink and moist. NECK: Trachea midline. No JVD. CARDIOVASCULAR: Regular rate and rhythm, sinus rhythm on the monitor with rate in the 60s. No murmurs rubs or gallops. RESPIRATORY: No accessory muscle use. Clear to auscultation. Breath sounds equal bilaterally. GASTROINTESTINAL: Abdomen soft, tender. Ostomy. clean surgical wounds and mechanical stitches in place. MUSCULOSKELETAL: Extremities without clubbing, cyanosis, or edema. No obvious deformities. NEUROLOGICAL: Awake and alert. No focal deficits. Medications and IVs Current Medications Medications (Trade) Dose Ordered Sig/Benedicto Route Start Time Stop Time Status Last Admin (NS Flush) 2 ml UNSCH PRN IV FLUSH 12/06/16 19:30 (NS Flush) 2 ml BID IV FLUSH 12/06/16 21:00 12/16/16 08:38 (Zofran Inj) 4 mg Q6H PRN IV 12/06/16 19:30 12/12/16 10:29 (Benadryl Inj) 25 mg Q6H PRN IV 12/06/16 19:30 (Lipitor) 10 mg HS PO 12/08/16 21:00 12/15/16 21:31 (Tylenol Supp) 650 mg Q6H PRN RECTAL 12/09/16 10:45 (Imitrex) 50 mg DAILY PRN PO 12/09/16 16:15 12/11/16 09:06 (Synthroid) 50 mcg DAILY@0600 PO 12/10/16 11:00 12/16/16 06:24 (Protonix) 40 mg DAILY PO 12/10/16 11:00 12/16/16 08:37 ([place] 5-325 Mg) 1 tab Q4H PRN PO 12/10/16 12:15 12/14/16 02:10 (Restoril) 15 mg HS PRN PO 12/13/16 12:00 (Pyridium) 100 mg Q8H PRN PO 12/13/16 17:45 12/16/16 08:36 Morphine Sulfate 2 mg 2 mg Q3H PRN IV PUSH 12/13/16 17:45 (Rocephin Inj/NS Inj) 100 ml @ 200 mls/hr Q24H IV 12/14/16 10:00 12/16/16 08:37 (Naprosyn) 250 mg Q6H PRN PO 12/15/16 13:00 12/15/16 21:32 (Colace) 100 mg BID PO 12/15/16 13:00 12/16/16 08:37 A/P Assessment and Plan 1. Asthma by history to continue Bronchodilator, Mucolytic and incentive spirometry, early ambulation 2. Hyperlipidemia continue Crestor 5 mg at bedtime 3. Status post Exploratory Laparotomy with Pelvic Mass Resection, Sigmoidectomy and Colostomy by Dr. Jewell, Dr. Calix and Dr. Smith Prior Biopsy high grade Undifferentiated Malignant neoplasm. radiator specialist Doctor Corona Henry at [facility], Cystogram no Urinary Bladder leak, removed SOLO drain and Escobar Cath. 4. Anemia Iron deficiency given Venofer Improving to 9.0 4. Hypothyroidism to continue Hormonal replacement by mouth 5. Electrolyte derangement replaced. 6. obesity strongly recommended Diet and exercise. 7. UTI was on Ciprofloxacin and her Urine culture gave Enterobacter Cloacae resistant to Cipro, discontinue and switched to Ceftriaxone. 8. Constipation given Milk of Mag by attending. No changes to anterior assessment. PROPH: SCDs for DVT prophylaxis. Protonix 40 mg IV daily for stress ulcer prophylaxis. Code Status Full code Discussed Condition With Patient, her and nurse. Discharge Planning per Attending physician. Avel Cao MD Dec 16, 2016 10:25
[2016-12-16] MEDS ORDERED: MAGNESIUM HYDROXIDE SUSP 30 ML CUP PO PRN (11:00)
[2016-12-16 12:00] VITALS: BP 112/69; PULSE 91; RESP 20; TEMP 98.3; O2SAT 98
[2016-12-16] MEDS ORDERED: SOD PHOSPHATE/SOD BIPHOSPHATE (ADULT) ENEMA 133ML OTHER ONE (13:00)
--- NOTE | 2016-12-16 14:04 | HHI.PR ---
Subjective Subjective Notes feels well, no new c/o, small BM Objective Vitals/I&O Vital Signs Date Time Temp Pulse Resp B/P Pulse Ox O2 Delivery O2 Flow Rate FiO2 12/16/16 12:00 98.3 91 20 112/69 98 12/13/16 20:00 Room Air Labs Date/Time Procedure Status Source Growth 12/12/16 06:30 Urine Culture - Final Complete Urine Catheterized Urine Enterobacter Cloacae Cardiovascular: Regular Lungs: Clear Abdomen: Non-distended, Non-tender Extremities: No edema, Perfused Narrative Exam ostomy pink, viable A/P Problem List: (1) Carcinomatosis (2) Pelvic mass in female (3) Bleeding Assessment and Plan 66yo s/p resection of pelvic mass, stable. rosalee PO, add fleets to help with constipation possibly DC if has better ostomy output Dada Kyle MD Dec 16, 2016 14:04
[2016-12-16 16:00] VITALS: BP 100/59; PULSE 87; RESP 18; TEMP 98.6; O2SAT 96
[2016-12-16 20:00] VITALS: BP 103/68; PULSE 93; RESP 18; TEMP 98; O2SAT 97
[2016-12-16] MEDS: ATORVASTATIN 10 MG TAB PO SCH (21:20)
[2016-12-17] VITALS: BP 116/67; PULSE 77; RESP 18; TEMP 97.8; O2SAT 96
[2016-12-17] MEDS: PHENAZOPYRIDINE HCL 100 MG TAB PO PRN ×2 (04:35→09:10)
[2016-12-17] MEDS: LEVOTHYROXINE SODIUM 50 MCG TAB PO SCH (04:35)
[2016-12-17 08:00] VITALS: BP 118/59; PULSE 88; RESP 20; TEMP 97.7; O2SAT 95
[2016-12-17] MEDS: SODIUM CHLORIDE 0.9% FLUSH 10 ML FLUSH IV FLUSH SCH (09:00)
[2016-12-17] MEDS: DOCUSATE SODIUM 100 MG CAP PO SCH (09:00)
--- NOTE | 2016-12-17 09:03 | HHI.PR ---
Subjective Subjective Notes feels well, +BM Objective Vitals/I&O Vital Signs Date Time Temp Pulse Resp B/P Pulse Ox O2 Delivery O2 Flow Rate FiO2 12/17/16 00:00 97.8 77 18 116/67 96 12/13/16 20:00 Room Air Cardiovascular: Regular Lungs: Clear Abdomen: Non-distended, Non-tender Extremities: No edema Narrative Exam ostomy pink, viable A/P Problem List: (1) Carcinomatosis (2) Pelvic mass in female (3) Bleeding Assessment and Plan 66yo s/p resection of pelvic mass, stable. +BM, tolerating PO, ok to DC home Dada Kyle MD Dec 17, 2016 09:03
[2016-12-17] MEDS: PANTOPRAZOLE SOD 40 MG DELAYED RELEASE TAB PO SCH (09:10)
--- NOTE | 2016-12-17 09:26 | HHI.PR ---
Subjective Remarks This is a pleasant 66 y/o Female with Asthma, Hyperlipidemia, Hyperthyroidism, who has been diagnosed with a Complex Left Pelvic mass, status post Exploratory laparotomy with Pelvic Mass resection, Sigmoidectomy and colostomy by Dr. Jewell, Dr. Calix and Dr. Smith. Had a routine airway for intubation. She received 7 L of crystalloid, 4 units packed red cells, when she had bleeding from deep in pelvis with resection of tumor, repaired left Hypogastric artery and left internal iliac vein, 12/08: Phosphorus today 1.3 was replaced by nurse, Hemoglobin 7.5 considered dilutional by Surgeon, stable at this time asymptomatic, No complaint. 12/09: Seen in her bedroom and discussed with nurse Miss Eckert and her Mr. Gaines, complaint of Headache, will help with Venofer for three days, Potassium replaced and Phosphorus. 12/10: Seen in her bedroom in the presence of her , asked for her Home medicines, Imitrex Levothyroxine, Colostomy working well. 12/11: Stable, no complaint continue management by her Primary Surgeon, her Friend and nurse with her Mrs. Mikki Mcfarlane. 12/12; Has Dysuria, during the night had Fever, turbid urine, taken UA and found pathologic urine, started on Cipro IV by Attending physician the Escobar Cath will need to continue in place for one week more. she is not feeling well and has Dizziness when standing. 12/13: Seen in her bedroom, she is working with Physical Therapy, no complaint, cystogram no urinary bladder leak and removed SOLO drain and Escobar cath. : Urinary Culture Enterobacter Cloacae Resistant to Cipro, switch to Ceftriaxone, patient had fever during the night. discussed with Nurse Miss Saucedo and with patient and her Friend in the room Mrs. Mikki Mcfarlane. 12/15: seen in the presence of her and nurse, asking for NSAIDs started by her Attending physician 12/16: Stable, no nausea, vomit or diarrhea. no abdominal pain, continue constipated asking for Milk of mag placed in her medicines. 12/17: Seen in her bedroom in the presence of nurse Miss Herron, patient improved condition, okay to discharge from registration specialist has follow up with General surgery for 12/21/16 and with deployment specialist as outpatient. no nausea, vomit or diarrhea. Objective Vital Signs Date Time Temp Pulse Resp B/P Pulse Ox O2 Delivery O2 Flow Rate FiO2 12/17/16 00:00 97.8 77 18 116/67 96 12/16/16 20:00 98.0 93 18 103/68 97 12/16/16 16:00 98.6 87 18 100/59 96 12/16/16 12:00 98.3 91 20 112/69 98 I/O 12/16/16 12/16/16 12/16/16 12/17/16 12/17/16 12/17/16 07:00 15:00 23:00 07:00 15:00 23:00 Intake Total 240 ml 600 ml 240 ml 120 ml Output Total 800 ml 1050 ml 1325 ml Balance -560 ml -450 ml -1085 ml 120 ml Intake Oral 240 ml 600 ml 240 ml 120 ml IV Total 0 ml 0 ml Output Urine Total 800 ml 1050 ml 1000 ml Stool Total 0 ml 325 ml # Bowel Movements 0 Result Diagram: 12/15/16 0515 12/15/16 0515 Imaging Last Impressions Cystogram X-Ray 12/13/16 0000 Signed Impressions: Service Date/Time: Tuesday, December 13, 2016 16:23 - CONCLUSION: No evidence of bladder leak. Rudy Hurtado MD Procedures Status post Exploratory Laparotomy with Pelvic Mass Resection, Sigmoidectomy and Colostomy by Dr. Jewell, Dr. Calix and Dr. Smith Other Results Laboratory Tests Test 12/12/16 12/15/16 06:30 05:15 Urine Color LIGHT-YELLOW Urine Turbidity HAZY Urine pH 8.0 Urine Specific [place] 1.010 Urine Protein 30 mg/dL Urine Glucose (UA) NEG mg/dL Urine Ketones NEG mg/dL Urine Occult Blood SMALL Urine Nitrite NEG Urine Bilirubin NEG Urine Urobilinogen LESS THAN 2.0 MG/DL Urine Leukocyte Esterase LARGE Urine RBC 21 /hpf Urine WBC /hpf Urine WBC Clumps MANY Urine Bacteria MANY /hpf Urine Mucus FEW /lpf Microscopic Urinalysis Comment CATH-CULTURE IND White Blood Count 5.5 TH/MM3 Red Blood Count 3.20 MIL/MM3 Hemoglobin 9.0 GM/DL Hematocrit 27.1 % Mean Corpuscular Volume 84.6 FL Mean Corpuscular Hemoglobin 28.1 PG Mean Corpuscular Hemoglobin 33.3 % Concent Red Cell Distribution Width 15.3 % Platelet Count 252 TH/MM3 Mean Platelet Volume 8.9 FL Neutrophils (%) (Auto) 52.9 % Lymphocytes (%) (Auto) 28.0 % Monocytes (%) (Auto) 11.5 % Eosinophils (%) (Auto) 6.7 % Basophils (%) (Auto) 0.9 % Neutrophils # (Auto) 2.9 TH/MM3 Lymphocytes # (Auto) 1.6 TH/MM3 Monocytes # (Auto) 0.6 TH/MM3 Eosinophils # (Auto) 0.4 TH/MM3 Basophils # (Auto) 0.1 TH/MM3 CBC Comment DIFF FINAL Differential Comment Sodium Level 142 MEQ/L Potassium Level 3.9 MEQ/L Chloride Level 108 MEQ/L Carbon Dioxide Level 28.4 MEQ/L Anion Gap 6 MEQ/L Blood Urea Nitrogen 8 MG/DL Creatinine 0.66 MG/DL Estimat Glomerular Filtration 90 ML/MIN Rate Random Glucose 99 MG/DL Calcium Level 8.2 MG/DL Phosphorus Level 3.5 MG/DL Magnesium Level 2.6 MG/DL Objective Remarks GENERAL: Obesity, well-developed, No distress. HEAD: Atraumatic. Normocephalic. EYES: Pupils equal and round 3 mm and reactive bilaterally. ENT: No nasal bleeding or discharge. Mucous membranes pink and moist. NECK: Trachea midline. No JVD. CARDIOVASCULAR: Regular rate and rhythm, sinus rhythm on the monitor with rate in the 60s. No murmurs rubs or gallops. RESPIRATORY: No accessory muscle use. Clear to auscultation. Breath sounds equal bilaterally. GASTROINTESTINAL: Abdomen soft, tender. Ostomy. clean surgical wounds and mechanical stitches in place. MUSCULOSKELETAL: Extremities without clubbing, cyanosis, or edema. No obvious deformities. NEUROLOGICAL: Awake and alert. No focal deficits. Medications and IVs Current Medications Medications (Trade) Dose Ordered Sig/Benedicto Route Start Time Stop Time Status Last Admin (NS Flush) 2 ml UNSCH PRN IV FLUSH 12/06/16 19:30 (NS Flush) 2 ml BID IV FLUSH 12/06/16 21:00 12/16/16 21:21 (Zofran Inj) 4 mg Q6H PRN IV 12/06/16 19:30 12/12/16 10:29 (Benadryl Inj) 25 mg Q6H PRN IV 12/06/16 19:30 (Lipitor) 10 mg HS PO 4/14/17 21:00 12/16/16 21:20 (Tylenol Supp) 650 mg Q6H PRN RECTAL 12/09/16 10:45 (Imitrex) 50 mg DAILY PRN PO 12/09/16 16:15 12/11/16 09:06 (Synthroid) 50 mcg DAILY@0600 PO 12/10/16 11:00 12/17/16 04:35 (Protonix) 40 mg DAILY PO 12/10/16 11:00 12/17/16 09:10 ([place] 5-325 Mg) 1 tab Q4H PRN PO 12/10/16 12:15 12/14/16 02:10 (Restoril) 15 mg HS PRN PO 12/13/16 12:00 (Pyridium) 100 mg Q8H PRN PO 12/13/16 17:45 12/17/16 09:10 Morphine Sulfate 2 mg 2 mg Q3H PRN IV PUSH 12/13/16 17:45 (Rocephin Inj/NS Inj) 100 ml @ 200 mls/hr Q24H IV 12/14/16 10:00 12/16/16 08:37 (Naprosyn) 250 mg Q6H PRN PO 12/15/16 13:00 12/15/16 21:32 (Colace) 100 mg BID PO 12/15/16 13:00 12/16/16 08:37 (Milk Of Magnesia Liq) 30 ml DAILY PRN PO 12/16/16 11:00 12/16/16 11:15 A/P Assessment and Plan 1. Asthma by history to continue Bronchodilator, Mucolytic and incentive spirometry, early ambulation 2. Hyperlipidemia continue Crestor 5 mg at bedtime 3. Status post Exploratory Laparotomy with Pelvic Mass Resection, Sigmoidectomy and Colostomy by Dr. Jewell, Dr. Calix and Dr. Smith Prior Biopsy high grade Undifferentiated Malignant neoplasm. deployment specialist Doctor Corona Henry at [facility], Cystogram no Urinary Bladder leak, removed SOLO drain and Escobar Cath. 4. Anemia Iron deficiency given Venofer Improving to 9.0 4. Hypothyroidism to continue Hormonal replacement by mouth 5. Electrolyte derangement replaced. 6. obesity strongly recommended Diet and exercise. 7. UTI was on Ciprofloxacin and her Urine culture gave Enterobacter Cloacae resistant to Cipro, discontinue and switched to Ceftriaxone. 8. Constipation given Milk of Mag by attending. No changes to anterior assessment. PROPH: SCDs for DVT prophylaxis. Protonix 40 mg IV daily for stress ulcer prophylaxis. Code Status Full code Discussed Condition With Patient, her and nurse. okay to discharge from medicine standpoint Discharge Planning Discharge home with [facility] today Avel Cao MD Dec 17, 2016 09:26
--- NOTE | 2017-01-09 14:37 | HHI.DS ---
Discharge Summary Admission Date Dec 06, 2016 at 10:40 Discharge Date: Dec 17, 2016 Admitting Diagnosis Pelvic Mass (1) Carcinomatosis (2) Pelvic mass in female (3) Bleeding Brief History 66 year old female s/p ex lap; resection of pelvic mass with en block resection of sigmoid colon and distal rectum with end colostomy; left ureterolysis; repair of cystotomy; repair of internal left iliac vein; repair of vaginal cuff PE at Discharge Alert and awake Cardio: RRR Resp: CTAB Abd: incision c/d/i; ostomy pink, viable Transfer Summary 66-year-old female with past medical history of asthma, hyperlipidemia , hypothyroidism who has been recently diagnosed with a complex left pelvic mass. She has undergone exploratory laparotomy with pelvic mass resection, sigmoidectomy and colostomy by Dr. Jewell, Dr. Calix and Dr. Smith. Anesthesia records reviewed. She was a routine airway for intubation. She received 7 L of crystalloid, 4 units packed red cells, 534 of FFP intraoperatively. Estimated blood loss was 2 L. Urine output 1 L. Postoperative hemoglobin is 10.5. 12/07: Hgb stable, urine output excellent, acid/base balance normal, breathing comfortably. Hospital Course This is a 66 year old female s/p ex lap; resection of pelvic mass with en block resection of sigmoid colon and distal rectum with end colostomy; left ureterolysis; repair of cystotomy; repair of internal left iliac vein; repair of vaginal cuff. The patient's diet was advanced slowly. She was able to tolerate a regular diet. Her pain was controlled. Her hemoglobin was stable at discharge. Home health care was arranged. She will follow up in the office. Pt Condition on Discharge: Good Discharge Disposition: Disch w/ Home Health Serv Discharge Instructions DIET: Follow Instructions for: As Tolerated, No Restrictions Activities you can perform: Partial Weight Bearing Activities to Avoid: Lifting/Bending, Strenuous Activity Mila Dickerson January 09, 2017 14:37
== END 2016-12-17 09:55 | disposition home health service (06) | DRG 330 ==
LOC: EDBD → HSDI 12-06 10:40 → HPAC 12-07 00:06 → N06A 12-07 09:44 → N07B 12-07 15:33
PROVIDERS: ADMIT Surgery; ATTEND Surgery
PROC: 0DBW0ZX Excision of Peritoneum, Open Approach, Diagnostic (ICD-10-PCS; 2016-12-06)
PROC: 0UBG0ZZ Excision of Vagina, Open Approach (ICD-10-PCS; 2016-12-06)
PROC: 0DBH0ZZ Excision of Cecum, Open Approach (ICD-10-PCS; 2016-12-06)
PROC: 0TBB0ZX Excision of Bladder, Open Approach, Diagnostic (ICD-10-PCS; 2016-12-06)
PROC: 04QF0ZZ Repair Left Internal Iliac Artery, Open Approach (ICD-10-PCS; 2016-12-06)
PROC: 06Q Lower Veins, Repair (ICD-10-PCS; 2016-12-06)
PROC: 0UQG0ZZ Repair Vagina, Open Approach (ICD-10-PCS; 2016-12-06)
PROC: 0JBC0ZX Excision of Pelvic Region Subcutaneous Tissue and Fascia, Open Approach, Diagnostic (ICD-10-PCS; 2016-12-06)
PROC: 30233K1 Transfusion of Nonautologous Frozen Plasma into Peripheral Vein, Percutaneous Approach (ICD-10-PCS; 2016-12-06)
PROC: 30233N1 Transfusion of Nonautologous Red Blood Cells into Peripheral Vein, Percutaneous Approach (ICD-10-PCS; 2016-12-06)
PROC: 3E0T3CZ (ICD-10-PCS; 2016-12-06)
PROC: 0DTN0ZZ Resection of Sigmoid Colon, Open Approach (ICD-10-PCS; principal; 2016-12-06 13:23)
PROC: 0D1N0Z4 Bypass Sigmoid Colon to Cutaneous, Open Approach (ICD-10-PCS; 2016-12-06 13:23)
PROC: 0DBP0ZZ Excision of Rectum, Open Approach (ICD-10-PCS; 2016-12-06 13:23)
DX: C78.6 Secondary malignant neoplasm of retroperitoneum and peritoneum (principal); N39.0 Urinary tract infection, site not specified; C80.1 Malignant (primary) neoplasm, unspecified; N13.30 Unspecified hydronephrosis; B96.89 Other specified bacterial agents as the cause of diseases classified elsewhere; E03.9 Hypothyroidism, unspecified; I97.42 Intraoperative hemorrhage and hematoma of a circulatory system organ or structure complicating other procedure; E78.5 Hyperlipidemia, unspecified; J45.909 Unspecified asthma, uncomplicated; D50.9 Iron deficiency anemia, unspecified; K59.00 Constipation, unspecified; G43.109 Migraine with aura, not intractable, without status migrainosus; E66.9 Obesity, unspecified; Z68.31 Body mass index [BMI] 31.0-31.9, adult; E87.6 Hypokalemia; M17.0 Bilateral primary osteoarthritis of knee; Z71.3 Dietary counseling and surveillance; Z16.23 Resistance to quinolones and fluoroquinolones
CPT/HCPCS: 36415; 36430; 51600; 74430; 76937; 80048; 81001; 82805; 82948; 83605; 83735; 84100; 84132; 84155; 85014; 85018; 85025; 85027; 85384; 85610; 85730; 86850; 86900; 86901; 86920; 86927; 87077; 87086; 87186; 88305; 88307; 88309; 88331; 88341; 88342; 88377; 93005; 94150; 99203; 99213; C9113; C9290; C9399; G0463; J0131; J0610; J0690; J0696; J0744; J1100; J1756; J1885; J2250; J2270; J2370; J2405; J2710; J2765; J3010; J3480; J7050; J7120; P9016; P9017; Q9958

== ENCOUNTER → 2017-01-15 | Day surgery (SDC) | payer BC ==
[~2017-01-15] MED LIST changes: +ACETAMINOPHEN/HYDROcodone 325 MG/5 MG TAB ONE; +BUPIVACAINE/EPINEPHRINE 0.25% 50 ML VIAL ONE; +HEPARIN SODIUM - IV 10,000 UNITS/10 ML VIAL ONE; +LACTATED RINGER'S 1000 ML INJ 1,000 ML ONE; +LIDOCAINE 1%/EPINEPHrine 1:100,000 SOLN 50 ML VIAL ONE; +MIDAZOLAM HCL 2 MG/2 ML VIAL ONE; +MORPHINE SULFATE 4 MG/ML INJ ONE; +ONDANSETRON HCL 4 MG/2 ML VIAL IV PUSH ONE; +PROPOFOL 200 MG/20 ML AMP IV ONE; +SODIUM CHLORIDE 0.9% 20 ML VIAL ONE; +WALKER WHEELS/F1 MIS; +ceFAZolin 2 GM PREMIX 50 ML ONE
--- NOTE | 2017-01-15 09:14 | TN ---
cc: CELIA LEE DATE OF SURGERY: 01/15/2017 PREOPERATIVE DIAGNOSIS Metastatic peritoneal mesothelioma. POSTOPERATIVE DIAGNOSIS Metastatic peritoneal mesothelioma. PROCEDURE 1. Left subclavian vein Xfmhuc-B-[id number] power port placement. 2. Intraoperative interpretation, intraoperative obtained fluoroscopic images by . ATTENDING SURGEON Dr. Lee. ASSISTANCE None. ANESTHESIA TIVA and local anesthetic. COMPLICATIONS None. BLOOD LOSS 10 ccs. FINDINGS Tip of the catheter in the atriocaval junction with aspirating blood and flushed with heparinized saline. INDICATIONS FOR PROCEDURE The patient is 56-year-old female with metastatic peritoneum mesothelioma, requires multiple chemotherapies and requires Ukpube-O-Yjqz placement for continued treatment and supportive care during her treatment. Risks, benefits, alternatives to Pxwbbp-B-Snmu placement were discussed with the patient prior to procedure and the patient agreed to undergo the procedure. PROCEDURE The patient was taken to the operating room at [facility], placed under TIVA sedation. The bilateral chest and neck were prepped and draped in sterile fashion. Time-out was performed. Local anesthetic was instilled over the planned pocket site and planned percutaneous stick site. We accessed the subclavian vein on first attempt with the 18 gauge finder needle and introduced the wire without difficulty. This was confirmed to be into the venous system as it crossed midline on fluoroscopy. We were then able to make a pocket with the 15 blade scalpel as all as the Bovie electrocautery at the stick site. We used the breakaway dilator introducer assembly to replace the wire with the catheter. This was custom measured with the tip in atriocaval junction at 21 cm and the catheter was attached to the port assembly per manufacture's recommendations. This was placed into the pocket without difficulty with no kinking. We aspirated blood well and flushed this with heparinized saline. We again confirmed this to be in good position on fluoroscopy without complication. We then were able to close the port incision which was again the extension of the percutaneous stick site with a single incision technique with 3-0 Vicryl and 4-0 Monocryl and Dermabond. The patient was discontinued from anesthesia and TIVA and taken to the PACU in stable condition. The patient tolerated the procedure well, no apparent complications. All counts were correct. I was present and scrubbed for the entire procedure. MD BABAK Ball/TLL /8:46 AM /8:56 AM
== END | disposition home or self-care (01) ==
LOC: ESDC 06:20
PROVIDERS: ATTEND Surgery
DX: Z45.2 Encounter for adjustment and management of vascular access device (principal); C45.1 Mesothelioma of peritoneum
CPT/HCPCS: 00532; 36561; 77001; C1788; J0690; J1644; J2250; J2270; J2405; J3010; J7120

== ENCOUNTER 2017-07-11 09:30 | Inpatient (IN) | payer BC, MEDICARE ==
[~2017-07-11] VITALS: Ht 165.1 cm; Wt 85.9 kg
[~2017-07-11 09:30] MED LIST changes: -ACETAMINOPHEN/HYDROcodone 325 MG/5 MG TAB ONE; -BUPIVACAINE/EPINEPHRINE 0.25% 50 ML VIAL ONE; -HEPARIN SODIUM - IV 10,000 UNITS/10 ML VIAL ONE; -LACTATED RINGER'S 1000 ML INJ 1,000 ML ONE; -LIDOCAINE 1%/EPINEPHrine 1:100,000 SOLN 50 ML VIAL ONE; -MIDAZOLAM HCL 2 MG/2 ML VIAL ONE; -MORPHINE SULFATE 4 MG/ML INJ ONE; -ONDANSETRON HCL 4 MG/2 ML VIAL IV PUSH ONE; -PROPOFOL 200 MG/20 ML AMP IV ONE; -SODIUM CHLORIDE 0.9% 20 ML VIAL ONE; -ceFAZolin 2 GM PREMIX 50 ML ONE
[2017-07-11] MEDS ORDERED: IODIXANOL 320 MG/ML 50 ML VIAL (for RAD SPEC) I-ARTERIAL ONE (09:31)
[2017-07-11 10:37] VITALS: BP 132/81; PULSE 104; RESP 18; TEMP 98.6; O2SAT 97
[2017-07-11] MEDS ORDERED: VITACAP7 PO (10:42)
[2017-07-11 11:05] LABS: AUTOMATED NEUTROPHIL # 5.1 TH/MM3 (1.8-7.7); BASOPHIL % 0.6 % (0.0-2.0); EOSINOPHIL # 0.1 TH/MM3 (0-0.4); EOSINOPHIL % 1.5 % (0.0-4.0); HEMATOCRIT 28.2 % (35.0-46.0); HEMO FLAGS DIFF FINAL; LYMPH % 16.4 % (9.0-44.0); LYMPHOCYTE # 1.2 TH/MM3 (1.0-4.8); MEAN CELL VOLUME 93.2 FL (80.0-100.0); MEAN CORPUSCULAR HEMOGLOBIN 32.1 PG (27.0-34.0); MEAN CORPUSCULAR HGB CONC 34.4 % (32.0-36.0); MONO % 9.1 % (0.0-8.0); NEUT % 72.4 % (16.0-70.0); PLATELET COUNT 220 TH/MM3 (150-450); RED BLOOD COUNT 3.02 MIL/MM3 (4.00-5.30); RED CELL DISTRIBUTION WIDTH 16.7 % (11.6-17.2)
[2017-07-11 11:14] LABS: APTT (PATIENT) 26.6 SEC (24.3-30.1); INTERNATIONAL NORMALIZED RATIO 0.9 RATIO; PROTHROMBIN TIME - PATIENT 10.3 SEC (9.8-11.6)
[2017-07-11 11:24] LABS: ANION GAP 9 MEQ/L (5-15); AST (GOT) 25 U/L (15-37); BICARBONATE 25.4 MEQ/L (21.0-32.0); BLOOD UREA NITROGEN 15 MG/DL (7-18); CHLORIDE 106 MEQ/L (98-107); GLOMERULAR FILTRATION RATE 76 ML/MIN (>89); POTASSIUM 4.1 MEQ/L (3.5-5.1); SODIUM (NA) 140 MEQ/L (136-145)
[2017-07-11 11:27] LABS: ALKALINE PHOSPHATASE 80 U/L (45-117); ALT (GPT) 32 U/L (10-53); TOTAL BILIRUBIN ADULT 0.5 MG/DL (0.2-1.0)
[2017-07-11] MEDS ORDERED: SODIUM CHLORID 0.9% 500 ML INJ 500 ML IV ONE (11:45)
[2017-07-11] MEDS ORDERED: DIAZEPAM 10 MG TAB PO ONE (14:30)
[2017-07-11 14:34] VITALS: BP 141/82; PULSE 89; RESP 22; O2SAT 96
[2017-07-11] MEDS ORDERED: MIDAZOLAM HCL 2 MG/2 ML VIAL ONE ×2 (15:07→16:07)
[2017-07-11] MEDS ORDERED: ceFAZolin 2 GM PREMIX 50 ML ONE (16:30)
--- NOTE | 2017-07-11 17:12 | PD.RAD ---
Post Procedure Progress Note Pre Procedure Diagnosis: (1) Carcinomatosis (2) Bleeding (3) Pelvic mass in female Post Procedure Diagnosis: (1) Pelvic mass in female (2) Bleeding (3) Carcinomatosis Procedure Date: Jul 11, 2017 Supervising Radiologist: Rupert Oliver Anesthesia: Local, Conscious Sedation Plan of Activity Patient to Unit: Other Patient Condition: Good Additional Comments: Detailed, subselective bilateral pelvic angio completed. No active bleeding identified. Uterine arteries are ligated. No definite vessels feeding the tumor masses identified by angiography. No embolization preformed. Full dictated report to follow See PACS Report for procedural detail/treatment Rupert Oliver MD Jul 11, 2017 17:12
[2017-07-11 17:43] VITALS: BP 118/69; PULSE 82; RESP 21; TEMP 98.4; O2SAT 97
[2017-07-11 18:00] LABS: AUTOMATED NEUTROPHIL # 3.3 TH/MM3 (1.8-7.7); BASOPHIL % 0.4 % (0.0-2.0); EOSINOPHIL # 0.1 TH/MM3 (0-0.4); HEMATOCRIT 23.2 % (35.0-46.0); HEMO FLAGS DIFF FINAL; LYMPH % 25.2 % (9.0-44.0); LYMPHOCYTE # 1.3 TH/MM3 (1.0-4.8); MEAN CELL VOLUME 94.6 FL (80.0-100.0); MEAN CORPUSCULAR HEMOGLOBIN 33.2 PG (27.0-34.0); MEAN CORPUSCULAR HGB CONC 35.1 % (32.0-36.0); MONO % 10.3 % (0.0-8.0); NEUT % 62.1 % (16.0-70.0); PLATELET COUNT 176 TH/MM3 (150-450); RED BLOOD COUNT 2.46 MIL/MM3 (4.00-5.30); WHITE BLOOD COUNT 5.3 TH/MM3 (4.0-11.0)
--- NOTE | 2017-07-11 19:09 | PD ---
HPI Chief Complaint: Bleeding Time Seen by Provider: 10:31 Travel History International Travel<30 days: No Contact w/Intl Traveler<30days: No Traveled to known affect area: No History of Present Illness HPI Patient is a 67-year-old female with history of intra-abdominal cancer, who comes in complaining of vaginal bleeding. She has had the bleeding for the past week and was seen in Dr. Fernandez office last week where she had coagulant applied. She says it seems the bleeding has gotten worse. She does report some dizziness with standing. She says she is passing large clots. She had an appointment with Dr. Fernandez today, but came to the emergency department instead. She denies shortness of breath or palpitations. She denies any chest pain. She has not fallen and hit her head. 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 ) Cardiovascular Problems: No High Cholesterol: Yes Chemotherapy: Yes Diabetes: No Endocrine: No Gastrointestinal Disorders: Yes (STRICTURE, DIVERTICULITIS) Genitourinary: Yes (MASS PRESSING ON URETERS) Hepatitis: No Hiatal Hernia: No Immune Disorder: No Musculoskeletal: Yes (OA) Neurologic: Yes (HERNIATED DISK CERVICAL AND DISC) Psychiatric: No Reproductive: No Respiratory: Yes (ASTHMA) Thyroid Disease: Yes Past Surgical History Abdominal Surgery: Yes (ostomy ) AICD: No Appendectomy: Yes Cardiac Surgery: No Cholecystectomy: Yes Ear Surgery: No Endocrine Surgery: No Eye Surgery: No Gynecologic Surgery: Yes (HYSTERECTOMY) Hysterectomy: Yes (1994) Joint Replacement: No Neurologic Surgery: Yes (RIGHT VEIN STRIPPING) Oral Surgery: Yes (T/A) Pacemaker: No Thoracic Surgery: No Other Surgery: Yes Social History Alcohol Use: No Tobacco Use: No Substance Use: No Allergies-Medications (Allergen,Severity, Reaction): Coded Allergies: Sulfa (Sulfonamide Antibiotics) (Unverified Allergy, Severe, GENERALIZED EDEMA, RASH, 07/11/17) Reported Meds & Prescriptions Reported Meds & Active Scripts Active Reported B Complex (B-Complex Vitamins) 1 Cap 1 Cap PO DAILY Ventolin Hfa 18 GM Inh (Albuterol Sulfate) 90 Mcg/Act Aer 2 Puff INH Q4-6H PRN Crestor (Rosuvastatin Calcium) 5 Mg Tab 5 Mg PO HS Synthroid (Levothyroxine Sodium) 50 Mcg Tab 50 Mcg PO DAILY Review of Systems Except as stated in HPI: all other systems reviewed are Neg General / Constitutional: No: Fever, Chills Eyes: No: Blurred Vision HENT: Positive: Lightheadedness, No: Headaches Cardiovascular: No: Chest Pain or Discomfort, Palpitations Respiratory: No: Shortness of Breath Gastrointestinal: No: Nausea, Vomiting Genitourinary: Positive: Vaginal Bleeding Musculoskeletal: No: Myalgias Skin: No Rash, No Change in Pigmentation Neurologic: No: Weakness Physical Exam Narrative GENERAL: Awake and alert, in no acute distress. SKIN: Focused skin assessment warm/dry. HEAD: Atraumatic. Normocephalic. EYES: Pupils equal and round. No scleral icterus. Extraocular movements intact. ENT: Mucous membranes pink and moist. NECK: Trachea midline. No JVD. CARDIOVASCULAR: Regular rate and rhythm. No murmur appreciated. RESPIRATORY: No accessory muscle use. Clear to auscultation. Breath sounds equal bilaterally. GASTROINTESTINAL: Abdomen soft, non-tender, nondistended. : Large clot present in the vaginal vault, minimal blood in the vault/active bleeding is minimal. MUSCULOSKELETAL: No obvious deformities. No clubbing. No cyanosis. No edema. NEUROLOGICAL: Awake and alert. No obvious cranial nerve deficits. Motor grossly within normal limits. Normal speech. PSYCHIATRIC: Appropriate mood and affect; insight and judgment normal. Data Data Last Documented VS Vital Signs Date Time Temp Pulse Resp B/P (MAP) Pulse Ox O2 Delivery O2 Flow Rate FiO2 07/11/17 17:43 98.4 82 21 118/69 (85) 97 Room Air Orders Orders Iv Access Insert/Monitor (07/11/17 10:42) Complete Blood Count With Diff (07/11/17 10:42) Comprehensive Metabolic Panel (07/11/17 10:42) Type And Screen (07/11/17 10:42) Prothrombin Time / Inr (Pt) (07/11/17 10:42) Act Partial Throm Time (Ptt) (07/11/17 10:42) Sodium Chlorid 0.9% 500 Ml Inj (Ns 500 M (07/11/17 11:45) ^ Pulse Checks (07/11/17 ) Notify Radiology (07/11/17 ) Vital Signs (Adult) .On admission (07/11/17 14:16) Notify Radiology (07/11/17 14:16) Diazepam (Valium) (07/11/17 14:30) Fentanyl Inj (Fentanyl Inj) (07/11/17 15:07) Midazolam Inj (Versed Inj) (07/11/17 15:07) Fentanyl Inj (Fentanyl Inj) (07/11/17 16:07) Midazolam Inj (Versed Inj) (07/11/17 16:07) Cefazolin 2 Gm Premix (Ancef 2 Gm Premix (07/11/17 16:30) Vital Signs (Adult) Q15MX4,Q30MX4,Q1HX4 (07/11/17 17:12) Notify Parameters (07/11/17 17:12) ^ Apply Pressure (07/11/17 17:12) ^ Dressings (07/11/17 17:12) Activity Bed Rest (07/11/17 17:12) Remove Urinary Catheter .ONCE (07/11/17 17:12) Angiogram, Pelvic (07/11/17 ) Angiogram, Pelvic, Selective (07/11/17 ) Us Guided Vascular Access (07/11/17 ) Angiogram, Pelvic, Selective (07/11/17 ) Iodixanol 320 Inj (Rad Spec) (Visipaque (07/11/17 09:31) Complete Blood Count With Diff (07/11/17 17:27) Admit Order (Ed Use Only) (07/11/17 ) Labs Laboratory Tests Test 07/11/17 10:45 07/11/17 17:45 White Blood Count 7.0 TH/MM3 5.3 TH/MM3 Red Blood Count 3.02 MIL/MM3 2.46 MIL/MM3 Hemoglobin 9.7 GM/DL 8.2 GM/DL Hematocrit 28.2 % 23.2 % Mean Corpuscular Volume 93.2 FL 94.6 FL Mean Corpuscular Hemoglobin 32.1 PG 33.2 PG Mean Corpuscular Hemoglobin Concent 34.4 % 35.1 % Red Cell Distribution Width 16.7 % 17.0 % Platelet Count 220 TH/MM3 176 TH/MM3 Mean Platelet Volume 7.7 FL 7.7 FL Neutrophils (%) (Auto) 72.4 % 62.1 % Lymphocytes (%) (Auto) 16.4 % 25.2 % Monocytes (%) (Auto) 9.1 % 10.3 % Eosinophils (%) (Auto) 1.5 % 2.0 % Basophils (%) (Auto) 0.6 % 0.4 % Neutrophils # (Auto) 5.1 TH/MM3 3.3 TH/MM3 Lymphocytes # (Auto) 1.2 TH/MM3 1.3 TH/MM3 Monocytes # (Auto) 0.6 TH/MM3 0.5 TH/MM3 Eosinophils # (Auto) 0.1 TH/MM3 0.1 TH/MM3 Basophils # (Auto) 0.0 TH/MM3 0.0 TH/MM3 CBC Comment DIFF FINAL DIFF FINAL Differential Comment Prothrombin Time 10.3 SEC Prothromb Time International Ratio 0.9 RATIO Activated Partial Thromboplast Time 26.6 SEC Blood Urea Nitrogen 15 MG/DL Creatinine 0.76 MG/DL Random Glucose 113 MG/DL Total Protein 7.5 GM/DL Albumin 3.8 GM/DL Calcium Level 9.1 MG/DL Alkaline Phosphatase 80 U/L Aspartate Amino Transf (AST/SGOT) 25 U/L Alanine Aminotransferase (ALT/SGPT) 32 U/L Total Bilirubin 0.5 MG/DL Sodium Level 140 MEQ/L Potassium Level 4.1 MEQ/L Chloride Level 106 MEQ/L Carbon Dioxide Level 25.4 MEQ/L Anion Gap 9 MEQ/L Estimat Glomerular Filtration Rate 76 ML/MIN MDM Medical Decision Making Medical Screen Exam Complete: Yes Emergency Medical Condition: Yes Medical Record Reviewed: Yes Differential Diagnosis Bleeding tumors versus anemia versus dehydration Narrative Course Patient is a 67-year-old female comes in due to vaginal bleeding. Exam shows a large clot in the vagina, minimal active bleeding. IV established, labs sent. Labs show hemoglobin of 9.7, which is close to her baseline. I spoke with Dr. Fernandez suggested asking interventional radiology if they could embolize the tumors. I spoke with Dr. Oliver who will attempt the embolization. Dr. Oliver was unable to embolize the tumors. Repeat CBC shows her hemoglobin has dropped 8.2. She'll be placed in observation for repeat CBCs to see if she requires transfusion. Diagnosis Primary Impression: Bleeding Additional Impression: Anemia Qualified Codes: D64.9 - Anemia, unspecified Admitting Information Admitting Physician Requests: Observation Condition: Stable Barb Joel MD Jul 11, 2017 19:09
[2017-07-11 19:27] VITALS: BP 126/80; PULSE 83; RESP 18; O2SAT 99
[2017-07-11] MEDS ORDERED: BISACODYL 10 MG SUPP RECTAL PRN (19:45)
[2017-07-11] MEDS ORDERED: SODIUM CHLORIDE 0.9% FLUSH 10 ML FLUSH IV FLUSH PRN (19:45)
[2017-07-11] MEDS ORDERED: ACETAMINOPHEN 325 MG TAB PO PRN (19:45)
[2017-07-11] MEDS ORDERED: SENNOSIDES 8.6 MG TAB PO PRN (19:45)
[2017-07-11] MEDS ORDERED: MAGNESIUM HYDROXIDE SUSP 30 ML CUP PO PRN (19:45)
[2017-07-11] MEDS ORDERED: LACTULOSE SYRUP 20 GM/30 ML CUP PO PRN (19:45)
[2017-07-11] MEDS ORDERED: NALOXONE HCL 0.4 MG/ML AMP IV PUSH PRN (19:45)
--- NOTE | 2017-07-11 19:51 | HHI.HP ---
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 The patient is known to Dr. Calix who has applied Monsel solution in the past to achieve hemostasis. The patient was seen in interventional radiology earlier today for angiography of the pelvis with no active bleeding identified. The uterine arteries are ligated. Since her arrival in the ED this morning, the patient's hemoglobin went from 9.7 to 8.2. She reports she is still having significant amounts of vaginal bleeding with intermittent clots. She reports feeling lightheaded upon getting out of bed. The patient is seeking treatment at [facility] however has not begun any immunotherapy. She is status post resection of pelvic mass with end block resection of sigmoid colon and distal rectum with end colostomy ileostomy for removal of the tumors in November of this year. She is admitted for blood loss and serial H&H's. Review of Systems Other Denies fever or chills Denies blurry vision, otorrhea, rhinorrhea Denies sore throat and cough No chest pain, palpitations, shortness of breath No abdominal pain Denies constipation/nausea/vomiting, diarrhea in her ostomy this morning Denies muscle pain/weakness No rashes Past Family Social History Past Medical History Carcinomatosis Asthma Hyperlipidemia Hypothyroidism Past Surgical History Removal of pelvic mass with end block resection of sigmoid colon and rectum with end colostomy in November 2016 Bilateral ureter stent placement Total hysterectomy Cholecystectomy Appendectomy Tonsillectomy Pyloric myotomy Reported Medications Reported Meds & Active Scripts Active Reported B Complex (B-Complex Vitamins) 1 Cap 1 Cap PO DAILY Ventolin Hfa 18 GM Inh (Albuterol Sulfate) 90 Mcg/Act Aer 2 Puff INH Q4-6H PRN Crestor (Rosuvastatin Calcium) 5 Mg Tab 5 Mg PO HS Synthroid (Levothyroxine Sodium) 50 Mcg Tab 50 Mcg PO DAILY Allergies: Coded Allergies: Sulfa (Sulfonamide Antibiotics) (Unverified Allergy, Severe, GENERALIZED EDEMA, RASH, 07/11/17) Family History Mother with diabetes. Father with coronary artery disease. Social History Denies tobacco, alcohol and illicit drugs. Physical Exam Vital Signs Vital Signs Date Time Temp Pulse Resp B/P (MAP) Pulse Ox O2 Delivery O2 Flow Rate FiO2 07/11/17 19:27 83 18 126/80 (95) 99 Room Air 07/11/17 17:43 98.4 82 21 118/69 (85) 97 Room Air 07/11/17 14:34 89 22 141/82 (101) 96 Room Air 07/11/17 10:37 98.6 104 18 132/81 (98) 97 Room Air Physical Exam GENERAL: Pale, female lying in bed SKIN: No rashes, ecchymoses or lesions. Cool and dry. HEAD: Atraumatic. Normocephalic. No temporal or scalp tenderness. EYES: Pupils equal round and reactive. Extraocular motions intact. No scleral icterus. No injection or drainage. ENT: Nose without bleeding, purulent drainage or septal hematoma. Throat without erythema, tonsillar hypertrophy or exudate. Uvula midline. Airway patent. NECK: Trachea midline. No JVD or lymphadenopathy. Supple, nontender, no meningeal signs. CARDIOVASCULAR: Regular rate and rhythm without murmurs, gallops, or rubs. RESPIRATORY: Clear to auscultation. Breath sounds equal bilaterally. No wheezes , rales, or rhonchi. GASTROINTESTINAL: Abdomen soft, non-tender, nondistended. No hepato-splenomegaly , or palpable masses. No guarding. Colostomy in place, stoma pink. MUSCULOSKELETAL: Extremities without clubbing, cyanosis, or edema. No joint tenderness, effusion, or edema noted. No calf tenderness. Negative Homans sign bilaterally. NEUROLOGICAL: Awake and alert. Cranial nerves II through XII intact. Motor and sensory grossly within normal limits. Normal speech. Laboratory Laboratory Tests Test 07/11/17 10:45 07/11/17 17:45 White Blood Count 7.0 5.3 Red Blood Count 3.02 2.46 Hemoglobin 9.7 8.2 Hematocrit 28.2 23.2 Mean Corpuscular Volume 93.2 94.6 Mean Corpuscular Hemoglobin 32.1 33.2 Mean Corpuscular Hemoglobin Concent 34.4 35.1 Red Cell Distribution Width 16.7 17.0 Platelet Count 220 176 Mean Platelet Volume 7.7 7.7 Neutrophils (%) (Auto) 72.4 62.1 Lymphocytes (%) (Auto) 16.4 25.2 Monocytes (%) (Auto) 9.1 10.3 Eosinophils (%) (Auto) 1.5 2.0 Basophils (%) (Auto) 0.6 0.4 Neutrophils # (Auto) 5.1 3.3 Lymphocytes # (Auto) 1.2 1.3 Monocytes # (Auto) 0.6 0.5 Eosinophils # (Auto) 0.1 0.1 Basophils # (Auto) 0.0 0.0 CBC Comment DIFF FINAL DIFF FINAL Differential Comment Prothrombin Time 10.3 Prothromb Time International Ratio 0.9 Activated Partial Thromboplast Time 26.6 Blood Urea Nitrogen 15 Creatinine 0.76 Random Glucose 113 Total Protein 7.5 Albumin 3.8 Calcium Level 9.1 Alkaline Phosphatase 80 Aspartate Amino Transf (AST/SGOT) 25 Alanine Aminotransferase (ALT/SGPT) 32 Total Bilirubin 0.5 Sodium Level 140 Potassium Level 4.1 Chloride Level 106 Carbon Dioxide Level 25.4 Anion Gap 9 Estimat Glomerular Filtration Rate 76 Result Diagram: 07/11/17 1745 07/11/17 1045 Caprini VTE Risk Assessment Caprini VTE Risk Assessment: Mod/High Risk (score >= 2) VTE Pharm Contraindication: Active bleeding Caprini Risk Assessment Model Point Value = 1 Point Value = 2 Point Value = 3 Point Value = 5 Age 41-60 Minor surgery BMI > 25 kg/m2 Swollen legs Varicose veins or History of unexplained or recurrent spontaneous Oral contraceptives or hormone replacement Sepsis (< 1 month) Serious lung disease, including pneumonia (< 1 month) Abnormal pulmonary function Acute myocardial infarction Congestive heart failure (< 1 month) History of inflammatory bowel disease Medical patient at bed rest Age 61-74 Arthroscopic surgery Major open surgery (> 45 min) Laparoscopic surgery (> 45 min) Malignancy Confined to bed (> 72 hours) Immobilizing plaster cast Central venous access Age >= 75 History of VTE Family history of VTE Factor V Leiden Prothrombin [id number] Lupus anticoagulant Anticardiolipin antibodies Elevated serum homocysteine Heparin-induced thrombocytopenia Other congenital or acquired thrombophilia Stroke (< 1 month) Elective arthroplasty Hip, pelvis, or leg fracture Acute spinal cord injury (< 1 month) Prophylaxis Regimen Total Risk Factor Score Risk Level Prophylaxis Regimen 0-1 Low Early ambulation 2 Moderate Order ONE of the following: *Sequential Compression Device (SCD) *Heparin 5000 units SQ BID 3-4 Higher Order ONE of the following medications: *Heparin 5000 units SQ TID *Enoxaparin/Lovenox 40 mg SQ daily (WT < 150 kg, CrCl > 30 mL/min) *Enoxaparin/Lovenox 30 mg SQ daily (WT < 150 kg, CrCl > 10-29 mL/min) *Enoxaparin/Lovenox 30 mg SQ BID (WT < 150 kg, CrCl > 30 mL/min) AND/OR *Sequential Compression Device (SCD) 5 or more Highest Order ONE of the following medications: *Heparin 5000 units SQ TID (Preferred with Epidurals) *Enoxaparin/Lovenox 40 mg SQ daily (WT < 150 kg, CrCl > 30 mL/min) *Enoxaparin/Lovenox 30 mg SQ daily (WT < 150 kg, CrCl > 10-29 mL/min) *Enoxaparin/Lovenox 30 mg SQ BID (WT < 150 kg, CrCl > 30 mL/min) AND *Sequential Compression Device (SCD) Assessment and Plan Assessment and Plan 67-year-old female with pelvic carcinomatosis, asthma, hyperlipidemia and hypothyroidism presents with a 2-3 week history of vaginal bleeding that is worsening. Patient underwent interventional radiology angiogram for possible ligation, no source of active bleeding was identified. She continues to have active vaginal bleeding and had a drop in her hemoglobin from 9.7 to 8.2. 1. Vaginal bleeding/pelvic carcinomatosis Per previous gynecologic oncology note, it appears that the bleeding is coming from the mass itself. Patient has been seen by Dr. Calix who has applied Monsel solution to achieve hemostasis. Solar Panel Installer onc consulted, appreciate assistance. Angiogram today showed no active source of bleeding Monitor serial H&H, transfuse when necessary Patient follows with oncology locally, is in the process of seeking treatment at [facility] 2. Hyperlipidemia/hypothyroidism Continue home medications FEN Heart healthy diet Electrolytes: Monitor and replete when necessary No pharmacologic anticoagulation as patient is actively bleeding Helen Varela MD Jul 11, 2017 19:51
[2017-07-11 20:13] VITALS: BP 118/58; PULSE 84; RESP 18; TEMP 98; O2SAT 97
[2017-07-11] MEDS: SODIUM CHLORIDE 0.9% FLUSH 10 ML FLUSH IV FLUSH SCH (20:41)
[2017-07-11] MEDS: ATORVASTATIN 10 MG TAB PO SCH (20:41)
[2017-07-11] MEDS: oxyCODONE/ACETAMINOPHEN 5 MG/325 MG TAB PO PRN (20:42)
[2017-07-11] MEDS: DOCUSATE SODIUM 50 MG/SENNA 8.6 MG TAB PO SCH (20:42)
[2017-07-11 23:28] LABS: HEMATOCRIT 23.8 % (35.0-46.0); REVIEW FLAG FINAL
[2017-07-12] VITALS (7 sets, daily range): BP systolic 98–135; BP diastolic 52–67; PULSE 76–91; RESP 17–21; TEMP 97.8–98.6; O2SAT 96–98
[2017-07-12] MEDS: oxyCODONE/ACETAMINOPHEN 5 MG/325 MG TAB PO PRN ×2 (03:00→21:15)
[2017-07-12 04:24] LABS: REVIEW FLAG FINAL
[2017-07-12] MEDS ORDERED: ALBUTEROL SULFATE 90 MCG/ACT HFA 8 GM INHALER INH PRN (05:45)
[2017-07-12] MEDS: LEVOTHYROXINE SODIUM 50 MCG TAB PO SCH (06:27)
--- NOTE | 2017-07-12 07:51 | PD.CONS ---
History of Present Illness Service real estate officer/onc Consult Requested By Reason for Consult vaginal bleeding Primary Care Physician Diagnoses: (1) Cancer with unknown primary site (2) Vaginal bleeding History of Present Illness This is a 67 year old female who currently being treated for cancer of unknown origion with Dr. Henry at [facility]. In the past she was seen in real estate officer/ onc clinic for vaginal bleeding believing that tumor was protruding through vaginal wall. Recently the vaginal bleeding has gotten worse and we applied moncel's solution to the tumor noted at the top of the vagina. Patient presented ER yesterday for worsening vaginal bleeding passing large clots. She states she felt dizzy and unsteady. IR was consult for embolization but was not completed because no definite vessels feeding the tumor masses identified by angiography. I saw patient in ER this morning. She states that vaginal bleeding has continued hem dropped from 9.0 to 8.2, she still feels unsteady but no further dizziness. I explained that I can place packing with Surgicel, Monsel's solution and vaginal packing but this will be a temporary bandage, eventually it will fall out or she could bleed through the packing. Dr. Calix recommends that we consult radiation oncology for stat radiation to vaginal tumor in hopes to stop the bleeding. Ms. Hernandez is currently trying to get into a clinical trial at [facility] and she was told that if she had any radiation and/or chemo that there would be a "wash out" period before she could start the trial. With further discussion she is willing to talk with radiation oncology because she understands the risks if she were to continue to have vaginal bleeding. 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 s/p taxol and carboplatin IV chemotherapy asthma hyperlipidemia hypothyroid Past Surgical History Removal of pelvic mass with end block resection of sigmoid colon and rectum with end colostomy in November 2016 Bilateral ureter stent placement Total hysterectomy Cholecystectomy Appendectomy Tonsillectomy Pyloric myotomy Reported Medications B Complex 1 Cap 1 Cap PO DAILY Ventolin Hfa 18 GM Inh 90 Mcg/Act Aer 2 Puff INH Q4-6H PRN Crestor 5 Mg Tab 5 Mg PO HS Synthroid 50 Mcg Tab 50 Mcg PO DAILY Active Ordered Medications Current Medications Sodium Chloride 500 ml @ 500 mls/hr BOLUS ONCE IV Last administered on 11:54; Start 07/11/17 at 11:45; Stop 07/11/17 at 12:44; Status DC Diazepam (Valium) 10 mg ONCE ONCE PO Last administered on 07/11/17 14:51; Start 07/11/17 at 14:30; Stop 07/11/17 at 14:31; Status DC Fentanyl Citrate (fentaNYL INJ) 100 mcg STK-MED ONCE .ROUTE Last administered on 07/11/17 15:07; Start 07/11/17 at 15:07; Stop 07/11/17 at 15:08; Status DC Midazolam HCl (Versed Inj) 2 mg STK-MED ONCE .ROUTE Last administered on 15:07; Start 07/11/17 at 15:07; Stop 07/11/17 at 15:08; Status DC Fentanyl Citrate (fentaNYL INJ) 100 mcg STK-MED ONCE .ROUTE Last administered on 07/11/17 16:07; Start 07/11/17 at 16:07; Stop 07/11/17 at 16:08; Status DC Midazolam HCl (Versed Inj) 2 mg STK-MED ONCE .ROUTE Last administered on 16:07; Start 07/11/17 at 16:07; Stop 07/11/17 at 16:08; Status DC Cefazolin Sodium/ Dextrose 50 ml @ As Directed STK-MED ONCE .ROUTE Last administered on 07/11/17 16:30; Start 07/11/17 at 16:30; Stop 07/11/17 at 16 :31; Status DC Iodixanol (VISIPAQUE 320 INJ (Rad Spec)) 160 ml STK-MED ONCE I-ARTERIAL ; Start 07/11/17 at 09:31; Stop 07/11/17 at 17:27; Status DC Sodium Chloride (NS Flush) 2 ml UNSCH PRN IV FLUSH FLUSH AFTER USING IV ACCESS ; Start 07/11/17 at 19:45 Sodium Chloride (NS Flush) 2 ml BID IV FLUSH Last administered on 07/12/17 08 :04; Start 07/11/17 at 21:00 Acetaminophen (Tylenol) 650 mg Q4H PRN PO TEMP > 100.4; Start 07/11/17 at 19: 45 Ondansetron HCl (Zofran Inj) 4 mg Q6H PRN IVP NAUSEA OR VOMITING; Start at 19:45 Naloxone HCl (Narcan Inj) 0.4 mg UNSCH PRN IV PUSH SEE LABEL COMMENTS; Start 07/11/17 at 19:45 Senna/Docusate Sodium (Waleska-Colace) 1 tab BID PO ; Start 07/11/17 at 21:00 Magnesium Hydroxide (Milk Of Magnesia Liq) 30 ml Q12H PRN PO Mild constipation ; Start 07/11/17 at 19:45 Sennosides (Senokot) 17.2 mg Q12H PRN PO Moderate constipation; Start at 19:45 Bisacodyl (Dulcolax Supp) 10 mg DAILY PRN RECTAL SEVERE CONSITIPATION; Start 07/11/17 at 19:45 Lactulose (Lactulose Liq) 30 ml DAILY PRN PO SEVERE CONSITIPATION; Start 07/11 at 19:45 Levothyroxine Sodium (Synthroid) 50 mcg DAILY@0600 PO Last administered on 06:27; Start 07/12/17 at 06:00 Atorvastatin Calcium (Lipitor) 10 mg HS PO Last administered on 07/11/17 20: 41; Start 07/11/17 at 21:00 Oxycodone/ Acetaminophen (Percocet 5-325 Mg) 1 tab Q4H PRN PO Pain 6-10 Last administered on 07/12/17 03:00; Start 07/11/17 at 19:45 Albuterol Sulfate (Proair Hfa Inh) 2 puff Q4HR PRN INH SHORTNESS OF BREATH; Start 07/12/17 at 05:45 Family History Mother with diabetes. Father with coronary artery disease. Social History denies tobacco or illegal drug use Physical Exam Vital Signs Vital Signs Date Time Temp Pulse Resp B/P (MAP) Pulse Ox O2 Delivery O2 Flow Rate FiO2 07/12/17 05:00 97.8 76 18 100/52 (68) 96 07/12/17 00:02 98.2 85 18 98/57 (71) 96 07/11/17 20:13 98.0 84 18 118/58 (78) 97 07/11/17 20:10 07/11/17 19:27 83 18 126/80 (95) 99 Room Air 07/11/17 17:43 98.4 82 21 118/69 (85) 97 Room Air 07/11/17 14:34 89 22 141/82 (101) 96 Room Air 07/11/17 10:37 98.6 104 18 132/81 (98) 97 Room Air Physical Exam GENERAL: This is a well-nourished, well-developed patient, in no apparent distress. SKIN: No rashes, ecchymoses or lesions. Cool and dry. HEAD: Atraumatic. Normocephalic. No temporal or scalp tenderness. EYES: Pupils equal round and reactive. Extraocular motions intact. No scleral icterus. No injection or drainage. CARDIOVASCULAR: Regular rate and rhythm without murmurs, gallops, or rubs. RESPIRATORY: Clear to auscultation. Breath sounds equal bilaterally. No wheezes , rales, or rhonchi. PRODUCT SAFETY COORDINATOR: tumor noted to upper vaginal canal with large clot, Surgicel packed with Monsel solution and vaginal packing MUSCULOSKELETAL: Extremities without clubbing, cyanosis, or edema. NEUROLOGICAL: Awake and alert. Normal speech. Laboratory Laboratory Tests Test 07/11/17 10:45 07/11/17 17:45 07/11/17 23:19 07/12/17 04:18 White Blood Count 7.0 5.3 Red Blood Count 3.02 2.46 Hemoglobin 9.7 8.2 8.4 8.2 Hematocrit 28.2 23.2 23.8 23.0 Mean Corpuscular Volume 93.2 94.6 Mean Corpuscular Hemoglobin 32.1 33.2 Mean Corpuscular Hemoglobin Concent 34.4 35.1 Red Cell Distribution Width 16.7 17.0 Platelet Count 220 176 Mean Platelet Volume 7.7 7.7 Neutrophils (%) (Auto) 72.4 62.1 Lymphocytes (%) (Auto) 16.4 25.2 Monocytes (%) (Auto) 9.1 10.3 Eosinophils (%) (Auto) 1.5 2.0 Basophils (%) (Auto) 0.6 0.4 Neutrophils # (Auto) 5.1 3.3 Lymphocytes # (Auto) 1.2 1.3 Monocytes # (Auto) 0.6 0.5 Eosinophils # (Auto) 0.1 0.1 Basophils # (Auto) 0.0 0.0 CBC Comment DIFF FINAL DIFF FINAL Differential Comment Prothrombin Time 10.3 Prothromb Time International Ratio 0.9 Activated Partial Thromboplast Time 26.6 Blood Urea Nitrogen 15 Creatinine 0.76 Random Glucose 113 Total Protein 7.5 Albumin 3.8 Calcium Level 9.1 Alkaline Phosphatase 80 Aspartate Amino Transf (AST/SGOT) 25 Alanine Aminotransferase (ALT/SGPT) 32 Total Bilirubin 0.5 Sodium Level 140 Potassium Level 4.1 Chloride Level 106 Carbon Dioxide Level 25.4 Anion Gap 9 Estimat Glomerular Filtration Rate 76 Result Diagram: 07/12/17 0418 07/11/17 1045 Assessment and Plan Problem List: (1) Cancer with unknown primary site ICD Codes: C80.1 - Malignant (primary) neoplasm, unspecified Plan: Patient currently being treated under the direction of Dr. Henry at [facility] s/p taxol and carboplatin currently awaiting clinical trial at [facility] (2) Vaginal bleeding ICD Codes: N93.9 - Abnormal uterine and vaginal bleeding, unspecified Plan: IR was consult for embolization but was not completed because no definite vessels feeding the tumor masses identified by angiography. vaginal packing placed with Surgicel, Monsel solution and vaginal packing, if pt has difficulty voiding Escobar Cath can be placed I spoke with Dr. Alex and he is going to see her in consultation today in the ER to discuss emergent radiation to help stop vaginal bleeding. Discussed Condition With Patient RN Doni Masters Dr. Jul 12, 2017 07:51
[2017-07-12] MEDS: DOCUSATE SODIUM 50 MG/SENNA 8.6 MG TAB PO SCH ×2 (08:04→21:00)
[2017-07-12] MEDS: SODIUM CHLORIDE 0.9% FLUSH 10 ML FLUSH IV FLUSH SCH ×2 (08:04→21:52)
--- NOTE | 2017-07-12 10:08 | RADRPT ---
EXAM DATE/TIME: 07/11/2017 15:42 [place] COMPARISON: ANGIOGRAM, PELVIC, SELECTIVE, LT, July 11, 2017, 0:00. INDICATIONS : Patient with a history of pelvic tumor. MEDICAL HISTORY : Vaginal bleeding Asthma Cancer (Carcinoma of renal pelvis) Diverticulitis Hyperlipidemia Hypothyroidism Migraine Osteoarthritis Thyroid disease Uterine Fibroids SURGICAL HISTORY : Appendectomy Cholecystectomy Hysterectomy Colonoscopy ENCOUNTER: Initial ACUITY: 1 day PAIN SCORE: 4/10 LOCATION: Flank pain FLUORO TIME: 27.3 minutes IMAGE SERIES: 19 ACCESS SITE: Right Femoral artery SEDATION TIME: 70 minutes CONTRAST: 1.) 160 cc Visipaque (iodixanol) MEDICATION(S): 1.) 2.75 mg midazolam (Versed) IV 2.) 200 mcg fentanyl (Sublimaze) IV DEVICE(S): 1.) Right common femoral artery 6FR Angio-Seal PROCEDURE : 1. Ultrasound-guided puncture of the access site. 2. Angiography of the access site prior to closure device. 3. Conscious sedation with continuous EKG and Oximetry monitoring. 4. Percutaneous closure of the access site. 5. Angiography of the pelvis 6. Selective angiography ngiography of the left internal iliac circulation 7. Selective angiography of the right internal iliac circulation Clinical history: The patient is a 67-year-old with known malignancy. The patient is post hysterectomy. Followup PET im aging demonstrates residual tumor within the pelvis. The patient is experiencing significant vaginal bleeding. The risks, benefits and alternatives to the procedure were explained and verbal and written consent w as obtained. The site was prepped in sterile fashion. Full sterile technique was used, including ca p, mask, sterile gloves and gown and a large sterile sheet. Hand hygiene and 2% chlorhexidine and/or betadine/alcohol prep was utilized per protocol for cutaneous antisepsis. Sterile gel and sterile p robe cover were utilized for ultrasound guidance. The skin and subcutaneous tissues were infiltrated with local anesthetic solution. With ultrasound and fluoroscopic guidance the selected artery was punctured and a vascular sheath was placed. Angiography of the common femoral artery was performed for evaluation prior to percutaneous closure device placement. A 4 Amharic Omni Flush catheter and 0.035 angle Glidewire were passed into the abdominal aorta. A pelv ic angiogram was performed. Results: The common iliac and internal iliac and external iliac circulation is widely patent bilaterally. The small contrast blush in the lateral margin of the low pelvis bilaterally. This would correspond to th e region of the patient's known disease. A 0.035 angled Glidewire and single interval glide catheter were advanced into the hypogastric circul ation on the left. Multiple subselective angiograms were performed. The areas of hyperemia in the lef t pelvis were identified however no discrete feeding vessel couldn't be localized as such, performed. The catheter was removed. The right hypogastric circulation was selected again old. Selective angiogr ams were performed. This demonstrated areas of contrast blush consistent with the patient's known mal ignancy but again, this appears to be secondary to recruitment of numerous small vessels and is not a menable to embolization. Hemostasis was obtained with the prescribed medicated closure device. Conscious sedation was perform ed with the prescribed dosages and duration as above in the presence of an independent trained radiol ogy nurse to assist in the monitoring of the patient. EKG and oximetry remained stable throughout th e procedure. CONCLUSION: 1. There is tumor blush in the pelvis bilaterally however there is not a definitive feeding vessel. T his appears to be small vessel recruitment and is not amenable to embolization without completely occ luding the hypogastric circulation. Rupert Oliver MD on July 12, 2017 at 10:02 Board Certified Radiologist. This report was verified electronically.
[2017-07-12 12:06] LABS: HEMATOCRIT 25.6 % (35.0-46.0); REVIEW FLAG FINAL
--- NOTE | 2017-07-12 14:33 | HHI.PR ---
Subjective Remarks Follow-up carcinomatosis. Continues to have vaginal bleeding status post vaginal packing. Going for emergent radiation therapy later today. Denies dizziness or weakness when she is out of bed. Seen with . Discussed with RN. Objective Vitals Vital Signs Date Time Temp Pulse Resp B/P (MAP) Pulse Ox O2 Delivery O2 Flow Rate FiO2 07/12/17 12:38 98.2 91 20 120/67 (84) 98 07/12/17 07:53 97.9 86 21 135/67 (89) 96 07/12/17 05:00 97.8 76 18 100/52 (68) 96 07/12/17 00:02 98.2 85 18 98/57 (71) 96 07/11/17 20:13 98.0 84 18 118/58 (78) 97 07/11/17 20:10 07/11/17 19:27 83 18 126/80 (95) 99 Room Air 07/11/17 17:43 98.4 82 21 118/69 (85) 97 Room Air 07/11/17 14:34 89 22 141/82 (101) 96 Room Air I/O 07/11/17 07/11/17 07/11/17 07/12/17 07/12/17 07/12/17 07:00 15:00 23:00 07:00 15:00 23:00 Intake Total 500 ml 50 ml Balance 500 ml 50 ml Intake IV Total 500 ml 50 ml # Voids 1 1 # Bowel Movements 1 # Sanitary Pads 1 Pads 2 Pads Result Diagram: 07/12/17 1010 07/11/17 1045 Imaging Last Impressions Angiography 07/11/17 0000 Signed Impressions: Service Date/Time: Tuesday, July 11, 2017 15:42 - CONCLUSION: 1. There is tumor blush in the pelvis bilaterally however there is not a definitive feeding vessel. This appears to be small vessel recruitment and is not amenable to embolization without completely occluding the hypogastric circulation. Rupert Oliver MD Objective Remarks GENERAL: This is a well-nourished, well-developed patient, in no apparent distress. SKIN: No rashes, ecchymoses or lesions. Cool and dry. CARDIOVASCULAR: Regular rate and rhythm without murmurs, gallops, or rubs. RESPIRATORY: Clear to auscultation. Breath sounds equal bilaterally. No wheezes , rales, or rhonchi. Abdomen soft nontender MUSCULOSKELETAL: Extremities without clubbing, cyanosis, or edema. NEUROLOGICAL: Awake and alert. Normal speech. A/P Problem List: (1) Vaginal bleeding ICD Code: N93.9 - Abnormal uterine and vaginal bleeding, unspecified Assessment and Plan Cancer with unknown primary site Patient currently being treated under the direction of Dr. Henry at [facility] s/p taxol and carboplatin currently awaiting clinical trial at [facility] Vaginal bleeding IR was consulted for embolization but was not completed because no definite vessels feeding the tumor masses identified by angiography. vaginal packing placed with Surgicel, Monsel solution and vaginal packing, if pt has difficulty voiding Escobar Cath can be placed For emergent radiation to help stop vaginal bleeding. Anemia secondary to acute blood loss. Transfuse to keep hemoglobin at least 8. Monitor blood counts Chronic medical conditions of asthma, hyperlipidemia and hypothyroidism DVT prophylaxis with SCD and early ambulation. Pharmacological prophylaxis contraindicated at this time secondary to vaginal bleeding Discharge Planning Discharge patient to home if anginal bleeding is controlled Condition on discharge: Improved Regular Diet as tolerated Ad Marya activity no driving Rx written: Follow-up with primary care physician and oncology José Miguel Zapata MD Jul 12, 2017 14:33
[2017-07-12 16:50] LABS: HEMATOCRIT 22.3 % (35.0-46.0); REVIEW FLAG FINAL
--- NOTE | 2017-07-12 17:41 | MB ---
cc: GRACY ZAPATA MD,VALENTINA MCKEON MD,EZEKIEL PRASAD DATE OF CONSULTATION: 07/12/2017 REASON FOR CONSULTATION: Pelvic tumor with recurrent vaginal bleeding. HISTORY OF PRESENT ILLNESS This patient is seen she is counseled by me in her findings are reviewed. She is examined by me in conjunction with our nurse practitioner (Doni Mullins) I agree with her findings, assessment and plan of care. This is a 67-year-old female who underwent exploratory laparotomy, resection of extensive pelvic tumor, rectosigmoid resection and colostomy hysterectomy bilateral salpingo-oophorectomy, tumor debulking a number of months ago under the direction of Dr. Dada Klye and myself for the gynecologic portion of the case. The tumor is of uncertain origin. Preliminary pathology suggested it maybe a mesotheioma. Additional pathology review suggested it could be undifferentiated possibly MANAGER SURGICAL in origin essentially it is a carcinoma of uncertain origin. Never the less she received Taxol, carboplatin chemotherapy and is currently under the care with Dr. Henry at [facility] and she has also seen consultation at [facility] where she is being considered for possible immunotherapy trial. She has known recurrent disease. At least in part manifesting as the pelvic tumor that is eroding through the vaginal apex causing vaginal bleeding. She was seen in our office last week where topical coagulants were placed which helped the symptoms briefly, and she was scheduled to come to our office again yesterday, however, she had recurrent bleeding that was heavier then it has been before and she was frightened by this and she presented to the emergency room. I spoke with the emergency room physician yesterday and recommended that we consult interventional radiology to see if they could embolized vasculature to this tumor which would be the best way to assist in hemostasis. Given that previous topical coagulants were of very limited success. She underwent a angiogram but Dr. Harley Oliver felt that there were no prominent vessels identified that were feeding this tumor that would benefit from embolization the uterine vessels had previously been ligated from hysterectomy and comment was not made regarding the pros and cons of ligation of the hypogastric vessels but should her bleeding consist we could perhaps reevaluate this as a possibility. Since she has been in the emergency room in addition to the angiogram she was seen earlier this morning by our nurse practitioner (Doni Mullins). I was in surgery but a phone consultation with her we agreed to put more topical coagulant on the tumor at the vaginal apex to then cover that with Surgicel hemostatic agent and then place a compressive pack in the vagina using lubricated Kerlix roll for direct pressure against the tumor. Furthermore we recommended consultation with radiation oncology for urgent hyper fractionated radiation therapy for palliative measures in an effort to try to suppress the bleeding. Dr. Martita Alex graciously agreed to see her straightaway and at time of this dictation. They have already taken her down to radiation oncology done the initial scanning, treatment planning and she is scheduled to get her first treatment today. It is my understanding that there will be recommendation of five fractions each daily to help control the bleeding. I had the opportunity speak to her nurse and the PA in the emergency room and Primoneo Susanna had the opportunity speak with the physician Dr. Zapata. We expressed our concerns about if she would be sent home, concerns about continued bleeding. Her hemoglobin has been stable while in the emergency room. It is also advised that she either not go home with the vaginal pack in place or if she were to go home that it be left in place only for a few days and in which case it would need to be removed the first of next week and additional lab work is being drawn. Results are pending. PAST MEDICAL HISTORY/PAST SURGICAL HISTORY/REVIEW OF SYSTEMS/ MEDICATIONS/ALLERGIES/FAMILY HISTORY: Are all reviewed and are documented in the chart. DISCUSSION: In my discussion with her, I did not elicit any additional information other than relative to her treatment. She was concerned that if she move forward with palliative radiation that this may somehow maker her potentially ineligible for clinical trial at [facility] she was able to reach the clinical trial coordinator at [facility] and that palliative radiation would require only a 1-week delay between completing the radiation before being enrolled in starting on the trial. If she were to undergo full dose radiation with therapeutic curative intent. It would have been a 30-day waiting period between the completion and certainly the potential benefits of radiation with no significant delay in the possibility of starting a clinical trial led to her being in favor of starting radiation treatments as well as she is quite worried about this bleeding yourself. Most recent the hemoglobin at 10 o'clock this morning was 9, hematocrit 25.6 that is up from 8.2 and 23, so some hemo delusional changes perhaps as she has not received any blood transfusion. Electrolytes show a normal potassium 4.1 and preserved renal function and 15 and 0.76, BUN and creatinine. IMAGING STUDIES Includes the angiography as summarized above. PHYSICAL EXAMINATION VITAL SIGNS: She is afebrile, pulse 91, respirations 20, blood pressure 120/67, O2 saturation 98%. IN GENERAL: She is resting comfortably in bed alert and oriented x3. She clearly has a good understanding of the pertinent aspects in her case, asks appropriate questions and is well informed. LUNGS: The lungs are clear. CARDIOVASCULAR SYSTEM: Regular rate and rhythm. BACK: The back is without tenderness. ABDOMEN: Abdomen is nonacute nontender. We confirmed on inspection that she has not bled through the pack, that was placed this morning. There is no evidence of bleeding beyond that pack as her protective garments have no new blood and she is not detected or felt any blood passing. EXTREMITIES: Nontender. DISCUSSION: Time spent in discussion with Jenna Hernandez reviewing the findings in her case to date, summarizing the aforementioned steps letting her know that I was involved in her care and in decision making behind the scene with multiple conversations and the decision making but it is nice to get to see her as I tried to find her in the emergency room earlier today, I was told she was in radiation. We went to radiation oncology and we where told she was sent back to the emergency room, so we had a good laugh about how difficult its been to track her down, never the less it was good to see her. Sorry that she is having these problems but she is comfortable with the plan as outlined and expresses good understanding. ASSESSMENT 1. History of adenocarcinoma of uncertain origin. 2. 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 3. Recurrent heavy bleeding related to the aforementioned tumor. 4. Extensive discussion. PLAN 1. Steps as have already been taken and topical coagulants, hemostatic agents and vaginal packing have been placed. If she has any difficulty voiding due to the pressure from the pack, a Escobar catheter should be considered. 2. Radiation oncology has been consulted. They have done treatment planning and are going to move forward with treatments to suppress the bleeding. 3. Currently hemodynamically stable but with limited reserve as thus far the steps to suppress the bleeding are temporary and I have been concerned about recurrent heavy bleeding at home such that she may benefit from hospital admission observation with ongoing treatment as we would expect better hemostasis after several radiation fractions had been delivered. 4. Additionally as discussed the vaginal pack should not be left in indefinitely and should be removed within a few days. 5. All ultimate decisions regarding treatment of her cancer will be made by her hematology oncologist and by the consultants at [facility] who are already overseeing her care. MD BRITNEY Blanco/alivia /3:38 PM /5:18 PM
[2017-07-12] MEDS: ATORVASTATIN 10 MG TAB PO SCH (21:49)
[2017-07-12] MEDS: ONDANSETRON HCL 4 MG/2 ML VIAL IVP PRN (21:52)
[2017-07-12 23:00] LABS: REVIEW FLAG FINAL
[2017-07-13] VITALS (8 sets, daily range): BP systolic 93–120; BP diastolic 50–62; PULSE 75–101; RESP 16–20; TEMP 97.6–98.9; O2SAT 95–97
[2017-07-13] MEDS: LEVOTHYROXINE SODIUM 50 MCG TAB PO SCH (05:59)
[2017-07-13] MEDS: oxyCODONE/ACETAMINOPHEN 5 MG/325 MG TAB PO PRN ×2 (06:12→16:27)
[2017-07-13 07:54] LABS: AUTOMATED NEUTROPHIL # 2.9 TH/MM3 (1.8-7.7); BASOPHIL % 0.5 % (0.0-2.0); EOSINOPHIL # 0.2 TH/MM3 (0-0.4); EOSINOPHIL % 3.4 % (0.0-4.0); HEMATOCRIT 22.5 % (35.0-46.0); HEMO FLAGS DIFF FINAL; LYMPH % 25.2 % (9.0-44.0); LYMPHOCYTE # 1.2 TH/MM3 (1.0-4.8); MEAN CELL VOLUME 93.7 FL (80.0-100.0); MEAN CORPUSCULAR HEMOGLOBIN 33.7 PG (27.0-34.0); MEAN CORPUSCULAR HGB CONC 35.9 % (32.0-36.0); MONO % 9.4 % (0.0-8.0); NEUT % 61.5 % (16.0-70.0); PLATELET COUNT 189 TH/MM3 (150-450); RED CELL DISTRIBUTION WIDTH 16.9 % (11.6-17.2); WHITE BLOOD COUNT 4.7 TH/MM3 (4.0-11.0)
[2017-07-13 08:07] LABS: BICARBONATE 27.6 MEQ/L (21.0-32.0); MAGNESIUM 2.1 MG/DL (1.5-2.5); POTASSIUM 3.5 MEQ/L (3.5-5.1)
[2017-07-13] MEDS: DOCUSATE SODIUM 50 MG/SENNA 8.6 MG TAB PO SCH ×2 (09:00→20:53)
[2017-07-13] MEDS: SODIUM CHLORIDE 0.9% FLUSH 10 ML FLUSH IV FLUSH SCH ×2 (09:48→20:53)
[2017-07-13] MEDS ORDERED: SODIUM CHLOR 0.9% 250 ML INJ 250 ML IV ONE ×2 (10:45→14:30)
[2017-07-13 13:08] LABS: HEMATOCRIT 21.7 % (35.0-46.0); REVIEW FLAG FINAL
[2017-07-13] MEDS: ONDANSETRON HCL 4 MG/2 ML VIAL IVP PRN (16:26)
--- NOTE | 2017-07-13 18:26 | HHI.PR ---
Subjective Remarks no further bleed today TV US done hb dropping Objective Vitals Vital Signs Date Time Temp Pulse Resp B/P (MAP) Pulse Ox O2 Delivery O2 Flow Rate FiO2 07/13/17 15:47 97.6 89 20 102/50 (67) 95 07/13/17 12:08 98.2 89 18 118/62 (80) 96 07/13/17 07:49 98.9 75 18 93/50 (64) 97 07/13/17 07:12 14 07/13/17 03:23 98.2 81 16 108/55 (72) 95 07/12/17 23:12 98.5 83 17 103/55 (71) 98 07/12/17 21:24 98.6 90 18 114/58 (76) 97 I/O 07/12/17 07/12/17 07/12/17 07/13/17 07/13/17 07/13/17 07:00 15:00 23:00 07:00 15:00 23:00 # Voids 1 # Bowel Movements 1 # Sanitary Pads 2 Pads Result Diagram: 07/13/17 1240 07/13/17 0632 Objective Remarks GENERAL: This is a well-nourished, well-developed patient, in no apparent distress. CARDIOVASCULAR: Regular rate and rhythm without murmurs, gallops, or rubs. RESPIRATORY: Clear to auscultation. Breath sounds equal bilaterally. No wheezes , rales, or rhonchi. GASTROINTESTINAL: Abdomen soft, non-tender, nondistended. Normal active bowel sounds MUSCULOSKELETAL: Extremities without clubbing, cyanosis, or edema. NEURO: Alert & Oriented x4 to person, place, time, situation. Moves all ext x4 A/P Problem List: (1) Vaginal bleeding ICD Code: N93.9 - Abnormal uterine and vaginal bleeding, unspecified Assessment and Plan 07/13: hb droped to 7.6 will transfuse 1 units of prbcs, appreciate obgyn input ,RT recs by obgyn , remove pack in few days A/P: Cancer with unknown primary site Patient currently being treated under the direction of Dr. Henry at [facility] s/p taxol and carboplatin currently awaiting clinical trial at [facility] Vaginal bleeding IR was consulted for embolization but was not completed because no definite vessels feeding the tumor masses identified by angiography. vaginal packing placed with Surgicel, Monsel solution and vaginal packing, if pt has difficulty voiding Escobar Cath can be placed For emergent radiation to help stop vaginal bleeding. Anemia secondary to acute blood loss. Transfuse to keep hemoglobin at least 8. Monitor blood counts Chronic medical conditions of asthma, hyperlipidemia and hypothyroidism DVT prophylaxis with SCD and early ambulation. Pharmacological prophylaxis contraindicated at this time secondary to vaginal bleeding Ruchi Mcghee MD Jul 13, 2017 18:26
--- NOTE | 2017-07-13 18:41 | RC ---
cc: CELIA LEE,VALENTINA TSANG MD,DONNIE HENRY ED, MD DATE OF SERVICE: 07/12/2017. REQUESTING PHYSICIAN: Dr. Valentina Calix. DIAGNOSIS: Poorly-differentiated, highly malignant, necrotic mass. 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 STAGE: Stage IV. CHIEF COMPLAINT: Intractable bleeding. REASON FOR VISIT: The patient is being evaluated for emergent radiotherapy for bleeding. HISTORY OF PRESENT ILLNESS: This is a 56-year white female whom I was advised was in the emergency room by Dr. Calix's nurse practitioner. It appears that the patient was diagnosed with having a malignant pelvic mass, type unknown. The patient has been receiving chemotherapy at [facility] under the direction of Dr. Henry from medical oncology. The patient has been offered radiation in the past which she has declined. The patient was admitted presently into the emergency room for intractable bleeding. Dr. Calix's nurse practitioner did some packing and came over to the department and asked me if I would see this patient as a stat consult for bleeding. The patient was seen in the emergency room and had discussion about the treatment options. In the meantime, the patient had called [facility] because she wants to participate in a clinical trial and she did not want to not be able to participate in that. She was told that she could have the radiation therapy and the washout period would be about a week before she can re-enter the trial. As a result of this, the patient is being evaluated for emergent pelvic radiotherapy for bleeding. PAST MEDICAL HISTORY: Past medical history as above, also history of: 1. Asthma. 2. Diverticulitis. 3. Hyperlipidemia. 4. Hypothyroidism. 5. Back pain. 6. Osteoarthritis. 7. Thyroid disease. 8. Uterine fibroids. 9. Upper endoscopy in 2017. 10. Appendectomy. 11. Cholecystectomy. 12. Complete hysterectomy. 13. Colonoscopy in 2017. 14. Pyloric stenosis surgery in 1951. MEDICATIONS: Per the hospital chart. ALLERGIES: SULFA. FAMILY HISTORY: No history of carcinoma in the family. SOCIAL HISTORY: The patient denies any smoking history and no a major EtOH intake. REVIEW OF SYSTEMS: CONSTITUTIONAL: The patient denies any major loss of weight. EYES: Unremarkable. ENT: Unremarkable. NECK: Unremarkable. INTEGUMENTARY: Unremarkable. BREASTS: Unremarkable. Denies any masses. CARDIOVASCULAR: Unremarkable. The patient denies chest pain. RESPIRATORY: Unremarkable. The patient denies any hemoptysis or cough. GASTROINTESTINAL: The patient has a colostomy placed. GENITOURINARY: Vaginal bleeding, intractable. MUSCULOSKELETAL: The patient denies any bone pain. NEUROLOGICAL: Unremarkable. The patient denies any neurological deficits. No stroke. PSYCHIATRIC: Unremarkable. ENDOCRINE: Unremarkable. HEMATOLOGIC: Unremarkable. DERMATOLOGIC: Unremarkable. PHYSICAL EXAMINATION: GENERAL: The patient is oriented times three and in no acute distress or discomfort at the present time. VITAL SIGNS: Stable. Pain rating scale is 0/10. BACK: To deep palpation and percussion of the posterior back no pain was elicited. LUNGS: Lungs were clear to auscultation with appropriate ventilatory respiratory effort. HEART: Heart was regular rate and rhythm without murmurs. NECK: Palpation of the neck and bilateral supraclavicular areas are free. ABDOMEN: Palpation of the abdominal cavity reveals no hepatosplenomegaly. No pain elicited. VAGINAL EXAM: Deferred due to the bleeding and the fact that she has packing to stop the bleeding. EXTREMITIES: Lower extremities without edema. NEUROLOGICAL: No neurological deficits present. Motor function is preserved. Cognitive functions are preserved. No other positive findings. SURGICAL PATHOLOGY: Surgical pathology 12/06/2016: 1. Pelvic mass excision highly malignant partially necrotic ____ neoplasm. 2. biopsy of multiple nodules of invasive poorly differentiated malignant neoplasm. 3. Sigmoid colon tumor segmental resection, ____ malignant poorly differentiated neoplasm at least 11 cm in diameter involving the serosa and outer muscularis propria of the colon. No evidence of metastatic carcinoma in ____ colonic lymph nodes. Two separate nodules of poorly differentiated malignant neoplasm and pericolonic adipose tissue. Neoplasm in the specimen has a mixture of epithelioid tumor and spindle cell tumor with multinucleated giant cells. Overall the stain pattern is not entirely specific but has some features of mesothelioma. RADIOLOGY: PET scan 06/22/2017, IMPRESSION: Multiple hepatic metastases involved. Increased activity in bone and pelvic masses as above with slight increase in size of the left-sided mass. ASSESSMENT: This is a 67-year white female with a diagnosis of metastatic poorly-differentiated carcinoma. The patient with intractable bleeding. The patient is being evaluated for emergent radiotherapy for bleeding cessation. PLAN: I had discussion with the patient and her in regards to the presentation and condition. I have discussed this case today with Dr. Calix's nurse practitioner. I evaluated Dr. Calix's note from 07/04/2017. I advised the patient to the merits of the radiation therapy which will be to stop the bleeding. I advised the patient that the only thing I might do is treat the pelvic mass the lymph nodes especially since the patient is looking to get chemotherapy down the road. If for some reason, I need to come back and re-treat the area or treat the pelvic lymph nodes, I should be able to do so. The patient was advised of the side effects and complications of the radiotherapy to include but not be limited to weakness and fatigue, decreased blood counts, edema of the skin, necrosis of the skin, bone damage and fracture, pain of the treated area, bowel damage and rectal damage, hemorrhoidal flare-up, bowel and bladder damage, bowel and bladder bleeding and bladder incontinence. The patient has colostomy bag in place. We discussed nausea, vomiting, and diarrhea. We also discussed vaginal strictures, vaginal discharge and vaginal dryness, loss of hair in the pelvic area which could be permanent and swelling of the lower extremities. After a thorough discussion, the patient wanted to move forward with treatments and a consent was signed. The patient needs to be simulated and treated emergently. The patient was advised that if I could be of any further assistance to please let me know. Dr. Calix, thank you very much the referral of this patient and for allowing me to participate in her care. Should you have any further questions or concerns, please do not hesitate to contact me. Donnie Burton MD Radiation Oncologist BOB/BEBETO /10:51 AM /6:15 PM
[2017-07-13] MEDS: ATORVASTATIN 10 MG TAB PO SCH (20:52)
[2017-07-14 00:11] LABS: HEMATOCRIT 23.4 % (35.0-46.0); REVIEW FLAG FINAL
[2017-07-14] MEDS: oxyCODONE/ACETAMINOPHEN 5 MG/325 MG TAB PO PRN ×3 (00:23→20:06)
[2017-07-14 00:45] VITALS: BP 129/69; PULSE 99; RESP 16; TEMP 98.3; O2SAT 97
[2017-07-14 04:00] VITALS: BP 94/52; PULSE 80; RESP 17; TEMP 97.4; O2SAT 98
[2017-07-14] MEDS: LEVOTHYROXINE SODIUM 50 MCG TAB PO SCH (07:00)
[2017-07-14 08:15] VITALS: BP 134/76; PULSE 98; RESP 18; TEMP 98.5; O2SAT 99
[2017-07-14] MEDS: SODIUM CHLORIDE 0.9% FLUSH 10 ML FLUSH IV FLUSH SCH ×2 (09:00→20:07)
[2017-07-14] MEDS: DOCUSATE SODIUM 50 MG/SENNA 8.6 MG TAB PO SCH ×2 (09:00→20:07)
[2017-07-14 09:11] LABS: HEMATOCRIT 25.8 % (35.0-46.0); REVIEW FLAG FINAL
--- NOTE | 2017-07-14 10:44 | HHI.PR ---
Subjective Remarks Patient reports some vaginal discomfort. She states the bleeding is slightly worse today. Change about 3 pads since midnight. Some of the vaginal packing has fallen out. Hemoglobin slightly improved. Objective Vitals Vital Signs Date Time Temp Pulse Resp B/P (MAP) Pulse Ox O2 Delivery O2 Flow Rate FiO2 07/14/17 08:15 98.5 98 18 134/76 (95) 99 07/14/17 04:00 97.4 80 17 94/52 (66) 98 07/14/17 00:45 98.3 99 16 129/69 (89) 97 07/13/17 20:45 98.6 78 18 118/62 95 07/13/17 20:32 98.4 91 18 111/56 (74) 95 07/13/17 19:27 98.2 95 18 105/57 97 07/13/17 18:47 98.2 101 17 120/58 97 07/13/17 15:47 97.6 89 20 102/50 (67) 95 07/13/17 12:08 98.2 89 18 118/62 (80) 96 I/O 07/13/17 07/13/17 07/13/17 07/14/17 07/14/17 07/14/17 06:59 14:59 22:59 06:59 14:59 22:59 Intake Total 1010 ml 1240 ml Balance 1010 ml 1240 ml Intake Oral 200 ml 340 ml IV Total 500 ml Packed Cells 400 ml 400 ml Blood Product IV Normal Saline Flush 410 ml # Voids 1 Result Diagram: 07/14/17 0900 07/13/17 0632 Objective Remarks GENERAL: This is a well-nourished, well-developed patient, in no apparent distress. CARDIOVASCULAR: Normal rate and regular rhythm without murmurs, gallops, or rubs. RESPIRATORY: Good respiratory efforts. Breath sounds equal and clear to auscultation bilaterally. GASTROINTESTINAL: Abdomen soft, colostomy appear intact. Normal active bowel sounds MUSCULOSKELETAL: Extremities without cyanosis, or edema. NEURO: Alert & Oriented x4 to person, place, time, situation. Moves all ext x4 PSYCH: Appropriate mood and affect. A/P Problem List: (1) Vaginal bleeding ICD Code: N93.9 - Abnormal uterine and vaginal bleeding, unspecified Assessment and Plan 67-year-old female with a malignant pelvic mass and metastatic disease admitted with intractable vaginal bleeding Cancer with unknown primary site: Patient currently being treated under the direction of Dr. Henry at [facility] s/p taxol and carboplatin currently awaiting clinical trial at [facility] -Appreciate radiation oncology following. Patient is undergoing radiation therapy to help control bleeding. Vaginal bleeding IR was consulted for embolization but was not completed because no definite vessels feeding the tumor masses identified by angiography. vaginal packing placed with Surgicel, Monsel solution and vaginal packing, if pt has difficulty voiding Escobar Cath can be placed Patient is undergoing radiation therapy to help control vaginal bleeding. Anemia secondary to acute blood loss. Transfuse to keep hemoglobin >8. Monitor H&H Q6hrs until bleeding improves. Chronic medical conditions of asthma, hyperlipidemia and hypothyroidism, continue home meds. DVT prophylaxis with SCD and early ambulation. Pharmacological prophylaxis contraindicated at this time secondary to vaginal bleeding Goyo Maurer MD Jul 14, 2017 10:44
[2017-07-14 12:00] VITALS: BP 107/61; PULSE 84; RESP 18; TEMP 98; O2SAT 97
[2017-07-14 12:45] LABS: HEMATOCRIT 24.9 % (35.0-46.0); REVIEW FLAG FINAL
[2017-07-14 16:00] VITALS: BP 104/57; PULSE 92; RESP 18; TEMP 98.5; O2SAT 99
[2017-07-14 18:29] LABS: HEMATOCRIT 21.6 % (35.0-46.0)
[2017-07-14 18:32] LABS: REVIEW FLAG FINAL
[2017-07-14 19:07] VITALS: BP 127/61; PULSE 85; RESP 18; TEMP 100; O2SAT 97
[2017-07-14] MEDS: ATORVASTATIN 10 MG TAB PO SCH (20:07)
[2017-07-15 00:12] VITALS: BP 103/57; PULSE 80; RESP 17; TEMP 98.4; O2SAT 95
[2017-07-15 03:52] VITALS: BP 102/51; PULSE 92; RESP 17; TEMP 98.8; O2SAT 96
[2017-07-15] MEDS: LEVOTHYROXINE SODIUM 50 MCG TAB PO SCH (06:40)
[2017-07-15 07:01] LABS: HEMATOCRIT 23.7 % (35.0-46.0); MEAN CELL VOLUME 92.3 FL (80.0-100.0); MEAN CORPUSCULAR HEMOGLOBIN 32.8 PG (27.0-34.0); MEAN CORPUSCULAR HGB CONC 35.6 % (32.0-36.0); PLATELET COUNT 195 TH/MM3 (150-450); RED BLOOD COUNT 2.57 MIL/MM3 (4.00-5.30); RED CELL DISTRIBUTION WIDTH 16.9 % (11.6-17.2); REVIEW FLAG FINAL; WHITE BLOOD COUNT 5.4 TH/MM3 (4.0-11.0)
[2017-07-15 07:12] LABS: BICARBONATE 27.7 MEQ/L (21.0-32.0); POTASSIUM 3.6 MEQ/L (3.5-5.1)
[2017-07-15 08:05] VITALS: BP 107/53; PULSE 86; RESP 18; TEMP 98.8; O2SAT 96
[2017-07-15] MEDS: SODIUM CHLORIDE 0.9% FLUSH 10 ML FLUSH IV FLUSH SCH ×2 (09:00→19:47)
[2017-07-15] MEDS: DOCUSATE SODIUM 50 MG/SENNA 8.6 MG TAB PO SCH ×2 (09:00→19:47)
--- NOTE | 2017-07-15 15:54 | HHI.PR ---
Subjective Remarks Feeling tired. Had radiation today. No new issues. Vaginal bleeding is light. Objective Vitals Vital Signs Date Time Temp Pulse Resp B/P (MAP) Pulse Ox O2 Delivery O2 Flow Rate FiO2 07/15/17 08:05 98.8 86 18 107/53 (71) 96 07/15/17 03:52 98.8 92 17 102/51 (68) 96 07/15/17 00:12 98.4 80 17 103/57 (72) 95 07/14/17 19:07 100.0 85 18 127/61 (83) 97 07/14/17 16:00 98.5 92 18 104/57 (73) 99 I/O 07/14/17 07/14/17 07/14/17 07/15/17 07/15/17 07/15/17 07:00 15:00 23:00 07:00 15:00 23:00 Intake Total 1240 ml 720 ml 900 ml 360 ml Balance 1240 ml 720 ml 900 ml 360 ml Intake Oral 340 ml 720 ml 900 ml 360 ml IV Total 500 ml Packed Cells 400 ml # Voids 1 4 2 2 # Bowel Movements 2 0 0 Result Diagram: 07/15/17 0630 07/15/17 0630 Objective Remarks GENERAL: This is a well-nourished, well-developed patient, in no apparent distress. CARDIOVASCULAR: Normal rate and regular rhythm without murmurs, gallops, or rubs. RESPIRATORY: Good respiratory efforts. Breath sounds equal and clear to auscultation bilaterally. GASTROINTESTINAL: Abdomen soft, colostomy appear intact. Normal active bowel sounds MUSCULOSKELETAL: Extremities without cyanosis, or edema. NEURO: Alert & Oriented x4 to person, place, time, situation. Moves all ext x4 PSYCH: Appropriate mood and affect. A/P Problem List: (1) Vaginal bleeding ICD Code: N93.9 - Abnormal uterine and vaginal bleeding, unspecified Assessment and Plan 67-year-old female with a malignant pelvic mass and metastatic disease admitted with intractable vaginal bleeding Cancer with unknown primary site: Patient currently being treated under the direction of Dr. Henry at [facility] s/p taxol and carboplatin currently awaiting clinical trial at [facility] -Appreciate radiation oncology following. Patient is undergoing radiation therapy to help control bleeding. Vaginal bleeding IR was consulted for embolization but was not completed because no definite vessels feeding the tumor masses identified by angiography. vaginal packing placed with Surgicel, Monsel solution and vaginal packing, if pt has difficulty voiding Escobar Cath can be placed Patient is undergoing radiation therapy to help control vaginal bleeding. Anemia secondary to acute blood loss. Transfuse to keep hemoglobin >8. Monitor H&H. Repeat in AM. Chronic medical conditions of asthma, hyperlipidemia and hypothyroidism, continue home meds. DVT prophylaxis with SCD and early ambulation. Pharmacological prophylaxis contraindicated at this time secondary to vaginal bleeding Goyo Maurer MD Jul 15, 2017 15:54
[2017-07-15 16:00] VITALS: BP 109/55; PULSE 98; RESP 18; TEMP 99.7; O2SAT 96
[2017-07-15] MEDS: oxyCODONE/ACETAMINOPHEN 5 MG/325 MG TAB PO PRN (17:50)
[2017-07-15 19:20] VITALS: BP 110/53; PULSE 92; RESP 18; TEMP 99; O2SAT 98
[2017-07-15] MEDS: ATORVASTATIN 10 MG TAB PO SCH (19:47)
[2017-07-15] MEDS: ONDANSETRON HCL 4 MG/2 ML VIAL IVP PRN (21:21)
[2017-07-15 23:42] VITALS: BP 95/44; PULSE 89; RESP 18; TEMP 98.3; O2SAT 96
[2017-07-16] MEDS: oxyCODONE/ACETAMINOPHEN 5 MG/325 MG TAB PO PRN ×2 (05:19→20:12)
[2017-07-16] MEDS: LEVOTHYROXINE SODIUM 50 MCG TAB PO SCH (05:19)
[2017-07-16 08:00] VITALS: BP 106/64; PULSE 94; RESP 18; TEMP 95.4; O2SAT 96
[2017-07-16 08:15] LABS: MEAN CELL VOLUME 92.9 FL (80.0-100.0); MEAN CORPUSCULAR HEMOGLOBIN 32.2 PG (27.0-34.0); MEAN CORPUSCULAR HGB CONC 34.6 % (32.0-36.0); PLATELET COUNT 243 TH/MM3 (150-450); RED BLOOD COUNT 3.01 MIL/MM3 (4.00-5.30); REVIEW FLAG FINAL; WHITE BLOOD COUNT 5.8 TH/MM3 (4.0-11.0)
--- NOTE | 2017-07-16 08:30 | PD.ONC.PN ---
Subjective Subjective Remarks pt sitting along side of bed eating states less bleeding has had 3 radiation treatments 2 more planned states vaginal packing has fallen out over the weekend reminded pt that we need to make sure that it is all fallen out before she is discharged home Objective Data Date Time Temp Pulse Resp B/P (MAP) Pulse Ox O2 Delivery O2 Flow Rate FiO2 07/15/17 23:42 98.3 89 18 95/44 (61) 96 07/15/17 19:20 99.0 92 18 110/53 (72) 98 07/15/17 16:00 99.7 98 18 109/55 (73) 96 07/16/17 07/16/17 07/16/17 07:00 15:00 23:00 Intake Total 360 ml Balance 360 ml Result Diagram: 07/16/17 0751 07/15/17 0630 Laboratory Results Laboratory Tests Test 07/16/17 07:51 White Blood Count 5.8 TH/MM3 Red Blood Count 3.01 MIL/MM3 Hemoglobin 9.7 GM/DL Hematocrit 28.0 % Mean Corpuscular Volume 92.9 FL Mean Corpuscular Hemoglobin 32.2 PG Mean Corpuscular Hemoglobin Concent 34.6 % Red Cell Distribution Width 17.0 % Platelet Count 243 TH/MM3 Mean Platelet Volume 7.4 FL Administered Medications Medications (Trade) Dose Ordered Sig/Benedicto Route PRN Reason Start Time Stop Time Status Last Admin Dose Admin Sodium Chloride (NS Flush) 2 ml BID IV FLUSH 07/11/17 21:00 07/15/17 09:00 Ondansetron HCl (Zofran Inj) 4 mg Q6H PRN IVP NAUSEA OR VOMITING 07/11/17 19:45 07/15/17 21:21 Senna/Docusate Sodium ([place]-Colace) 1 tab BID PO 07/11/17 21:00 07/15/17 19:47 Levothyroxine Sodium (Synthroid) 50 mcg DAILY@0600 PO 07/12/17 06:00 07/16/17 05:19 Atorvastatin Calcium (Lipitor) 10 mg HS PO 07/11/17 21:00 07/15/17 19:47 Oxycodone/ Acetaminophen (Percocet 5-325 Mg) 1 tab Q4H PRN PO Pain 6-10 07/11/17 19:45 07/16/17 05:19 Objective Remarks GENERAL: Well-nourished, well-developed patient. SKIN: Warm and dry. HEAD: Normocephalic. EYES: No scleral icterus. No injection or drainage. CARDIOVASCULAR: Regular rate and rhythm without murmurs. RESPIRATORY: Breath sounds equal bilaterally. No accessory muscle use. GASTROINTESTINAL: Abdomen soft, non-tender, nondistended. EXTREMITIES: No cyanosis, or edema. MUSCULOSKELETAL: Adequate muscle tone. NEUROLOGICAL: No obvious focal deficit. Awake, alert, and oriented x3. PSYCHIATRIC: Appropriate mood and affect; insight and judgment normal. Assessment/Plan Problem List: (1) Cancer with unknown primary site ICD Codes: C80.1 - Malignant (primary) neoplasm, unspecified Status: Chronic Plan: patient plans to enroll in clinical trial at [facility] currently treated at [facility] s/p Taxol and Carbo (2) Vaginal bleeding ICD Codes: N93.9 - Abnormal uterine and vaginal bleeding, unspecified Status: Acute Plan: s/p 3 cycles of vaginal radiation 2 more planned at this time bleeding overall has improved vaginal packing.....may have fallen out, fly winder/onc to examine before discharge home as the packing needs to be removed if it remains prior to discharge. Attending Statement Discussed with Dr. Calix and he is in agreement. Doni Mullins Jul 16, 2017 08:30
[2017-07-16] MEDS: SODIUM CHLORIDE 0.9% FLUSH 10 ML FLUSH IV FLUSH SCH ×2 (08:51→21:00)
[2017-07-16] MEDS: DOCUSATE SODIUM 50 MG/SENNA 8.6 MG TAB PO SCH ×2 (08:51→21:00)
--- NOTE | 2017-07-16 09:40 | HHI.PR ---
Subjective Remarks Patient reports bleeding is less. Less painful. States she does not understand why her hemoglobin went up to 9.7 Objective Vitals Vital Signs Date Time Temp Pulse Resp B/P (MAP) Pulse Ox O2 Delivery O2 Flow Rate FiO2 07/16/17 08:00 95.4 94 18 106/64 (78) 96 07/15/17 23:42 98.3 89 18 95/44 (61) 96 07/15/17 19:20 99.0 92 18 110/53 (72) 98 07/15/17 16:00 99.7 98 18 109/55 (73) 96 I/O 07/15/17 07/15/17 07/15/17 07/16/17 07/16/17 07/16/17 07:00 15:00 23:00 07:00 15:00 23:00 Intake Total 360 ml 960 ml 480 ml 360 ml Balance 360 ml 960 ml 480 ml 360 ml Intake Oral 360 ml 960 ml 480 ml 360 ml # Voids 2 5 3 2 # Bowel Movements 0 0 0 0 Result Diagram: 07/16/17 0751 07/15/17 0630 Objective Remarks GENERAL: This is a well-nourished, well-developed patient, in no apparent distress. CARDIOVASCULAR: Normal rate and regular rhythm without murmurs, gallops, or rubs. RESPIRATORY: Good respiratory efforts. Breath sounds equal and clear to auscultation bilaterally. GASTROINTESTINAL: Abdomen soft, colostomy appear intact. Normal active bowel sounds MUSCULOSKELETAL: Extremities without cyanosis, or edema. NEURO: Alert & Oriented x4 to person, place, time, situation. Moves all ext x4 PSYCH: Appropriate mood and affect. A/P Problem List: (1) Vaginal bleeding ICD Code: N93.9 - Abnormal uterine and vaginal bleeding, unspecified Status: Acute Assessment and Plan 67-year-old female with a malignant pelvic mass and metastatic disease admitted with intractable vaginal bleeding Cancer with unknown primary site: Patient currently being treated under the direction of Dr. Henry at [facility] s/p taxol and carboplatin currently awaiting clinical trial at [facility] -Appreciate radiation oncology following. Patient is undergoing radiation therapy to help control bleeding. 2 more cycle planned Vaginal bleeding IR was consulted for embolization but was not completed because no definite vessels feeding the tumor masses identified by angiography. vaginal packing placed with Surgicel, Monsel solution and vaginal packing, if pt has difficulty voiding Escobar Cath can be placed Patient is undergoing radiation therapy to help control vaginal bleeding. Anemia secondary to acute blood loss. S/P one unit of PRBC transfusion. Transfuse to keep hemoglobin >8. H&H stable. I offered the patient to either repeat H&H tonight or AM. Given no new symptoms of anemia, I recommend repeat in AM as this was not a big discrepancy. Chronic medical conditions of asthma, hyperlipidemia and hypothyroidism, continue home meds. DVT prophylaxis with SCD and early ambulation. Pharmacological prophylaxis contraindicated at this time secondary to vaginal bleeding Discharge Planning Plan to DC after radiation is complete if bleeding is controlled and cleared by natural resources specialist. Goyo Maurer MD Jul 16, 2017 09:40
[2017-07-16 12:00] VITALS: BP 113/73; PULSE 100; RESP 18; TEMP 96.4; O2SAT 97
[2017-07-16] MEDS: ONDANSETRON HCL 4 MG/2 ML VIAL IVP PRN (16:41)
[2017-07-16 16:42] VITALS: BP 11/60; PULSE 96; RESP 18; TEMP 99.7; O2SAT 94
[2017-07-16 19:00] VITALS: BP 105/59; PULSE 106; RESP 18; TEMP 99.4; O2SAT 93
[2017-07-16] MEDS: ATORVASTATIN 10 MG TAB PO SCH (20:15)
[2017-07-17] VITALS (10 sets, daily range): BP systolic 93–131; BP diastolic 51–72; PULSE 77–104; RESP 15–20; TEMP 97.4–98.2; O2SAT 95–98
[2017-07-17] MEDS: LEVOTHYROXINE SODIUM 50 MCG TAB PO SCH (05:26)
[2017-07-17 05:49] LABS: HEMATOCRIT 23.6 % (35.0-46.0); MEAN CORPUSCULAR HEMOGLOBIN 32.5 PG (27.0-34.0); PLATELET COUNT 201 TH/MM3 (150-450); RED BLOOD COUNT 2.53 MIL/MM3 (4.00-5.30); RED CELL DISTRIBUTION WIDTH 16.8 % (11.6-17.2); REVIEW FLAG FINAL; WHITE BLOOD COUNT 4.1 TH/MM3 (4.0-11.0)
[2017-07-17 06:09] LABS: BICARBONATE 26.5 MEQ/L (21.0-32.0); POTASSIUM 3.5 MEQ/L (3.5-5.1)
--- NOTE | 2017-07-17 07:46 | HHI.PR ---
Subjective . No new c/o, no overt active vaginal bleeding, tolerating XRT well Objective . afeb, vss h/h 8.2/27.6, lytes wnl a&o x 3, nad abd non-acute no active bleeding Assessment/Plan . will remove any remaining vaginal pack prior to discharge anticipate d/c to home after completion of xrt f/u with her oncologist at [facility] for ongoing treatment (and /or pending clinical trial entry at [facility]. Q&A, she expresses good understanding Summer Calix MD Jul 17, 2017 07:46
[2017-07-17] MEDS ORDERED: FUROSEMIDE 20 MG/2 ML VIAL IV PUSH ONE ×2 (08:30→17:00)
[2017-07-17] MEDS ORDERED: SODIUM CHLOR 0.9% 250 ML INJ 250 ML IV ONE (08:30)
[2017-07-17] MEDS: DOCUSATE SODIUM 50 MG/SENNA 8.6 MG TAB PO SCH ×2 (09:00→21:00)
[2017-07-17] MEDS: SODIUM CHLORIDE 0.9% FLUSH 10 ML FLUSH IV FLUSH SCH ×2 (09:00→21:00)
--- NOTE | 2017-07-17 09:17 | HHI.PR ---
Subjective Remarks Hemoglobin dropped again to 8.2, still having some vaginal bleeding but is improving. C/O feeling very fatigued. Objective Vitals Vital Signs Date Time Temp Pulse Resp B/P (MAP) Pulse Ox O2 Delivery O2 Flow Rate FiO2 07/17/17 04:00 98.2 82 15 93/51 (65) 96 07/17/17 00:00 97.5 77 15 94/51 (65) 96 07/16/17 19:00 99.4 106 18 105/59 (74) 93 07/16/17 16:42 99.7 96 18 11/60 (44) 94 07/16/17 12:00 96.4 100 18 113/73 (86) 97 I/O 07/16/17 07/16/17 07/16/17 07/17/17 07/17/17 07/17/17 07:00 15:00 23:00 07:00 15:00 23:00 Intake Total 360 ml 480 ml 240 ml Output Total 450 ml Balance 360 ml 480 ml -210 ml Intake Oral 360 ml 480 ml 240 ml Output Urine Total 450 ml # Voids 2 2 # Bowel Movements 0 0 0 Result Diagram: 07/17/175 07/17/17 0455 Objective Remarks GENERAL: This is a well-nourished, well-developed patient, in no apparent distress. CARDIOVASCULAR: Normal rate and regular rhythm without murmurs, gallops, or rubs. RESPIRATORY: Good respiratory efforts. Breath sounds equal and clear to auscultation bilaterally. GASTROINTESTINAL: Abdomen soft, colostomy appear intact. Normal active bowel sounds MUSCULOSKELETAL: Extremities without cyanosis, or edema. NEURO: Alert & Oriented x4 to person, place, time, situation. Moves all ext x4 PSYCH: Appropriate mood and affect. A/P Problem List: (1) Vaginal bleeding ICD Code: N93.9 - Abnormal uterine and vaginal bleeding, unspecified Status: Acute Assessment and Plan 67-year-old female with a malignant pelvic mass and metastatic disease admitted with intractable vaginal bleeding Cancer with unknown primary site: Patient currently being treated under the direction of Dr. Henry at [facility] s/p taxol and carboplatin currently awaiting clinical trial at [facility] -Appreciate radiation oncology following. Patient is undergoing radiation therapy to help control bleeding. Last dose of radiation later today. Vaginal bleeding IR was consulted for embolization but was not completed because no definite vessels feeding the tumor masses identified by angiography. vaginal packing placed with Surgicel, Monsel solution and vaginal packing, if pt has difficulty voiding Escobar Cath can be placed Patient is undergoing radiation therapy to help control vaginal bleeding. Anemia secondary to acute blood loss. S/P one unit of PRBC transfusion. Hemoglobin trended down to 8.2. Although vaginal bleeding is improving. It is not completely resolved therefore expect patient hemoglobin to continue to trend down in the next few days. Therefore will transfuse 2 units of PRBC today. Chronic medical conditions of asthma, hyperlipidemia and hypothyroidism, continue home meds. DVT prophylaxis with SCD and early ambulation. Pharmacological prophylaxis contraindicated at this time secondary to vaginal bleeding Discharge Planning Probable discharge tomorrow if remains stable to follow-up outpatient with [facility] [place]. Goyo Maurer MD Jul 17, 2017 09:17
[2017-07-17] MEDS: ONDANSETRON HCL 4 MG/2 ML VIAL IVP PRN (11:05)
[2017-07-17] MEDS: ATORVASTATIN 10 MG TAB PO SCH (22:08)
[2017-07-18 00:36] VITALS: BP 120/78; PULSE 86; RESP 19; TEMP 98.1; O2SAT 98
[2017-07-18 03:59] VITALS: BP 105/63; PULSE 89; RESP 20; TEMP 97; O2SAT 99
[2017-07-18] MEDS: LEVOTHYROXINE SODIUM 50 MCG TAB PO SCH (05:37)
[2017-07-18 06:45] LABS: HEMATOCRIT 30.8 % (35.0-46.0); MEAN CELL VOLUME 91.3 FL (80.0-100.0); MEAN CORPUSCULAR HEMOGLOBIN 31.9 PG (27.0-34.0); MEAN CORPUSCULAR HGB CONC 34.9 % (32.0-36.0); PLATELET COUNT 214 TH/MM3 (150-450); RED BLOOD COUNT 3.37 MIL/MM3 (4.00-5.30); RED CELL DISTRIBUTION WIDTH 15.9 % (11.6-17.2); REVIEW FLAG FINAL; WHITE BLOOD COUNT 5.6 TH/MM3 (4.0-11.0)
--- NOTE | 2017-07-18 07:25 | PD.ONC.PN ---
Subjective Subjective Remarks patient is resting in bed no complaints received 2 units of PRBCs last night hopes to be discharged today Objective Data Date Time Temp Pulse Resp B/P (MAP) Pulse Ox O2 Delivery O2 Flow Rate FiO2 07/18/17 03:59 97.0 89 20 105/63 (77) 99 07/18/17 00:36 98.1 86 19 120/78 (92) 98 07/17/17 21:00 97.9 98 20 126/72 (90) 98 07/17/17 17:20 97.9 95 16 114/64 97 07/17/17 17:15 97.9 95 16 114/64 97 07/17/17 16:00 97.5 102 16 131/59 (83) 96 07/17/17 14:05 98.1 104 16 111/58 98 07/17/17 13:50 97.4 94 16 124/66 97 07/17/17 12:00 97.4 94 16 124/66 (85) 97 07/17/17 08:00 97.9 93 16 109/55 (73) 95 07/18/17 07/18/17 07/18/17 07:00 15:00 23:00 Intake Total 360 ml Balance 360 ml Result Diagram: 07/18/17 0540 07/17/17 0455 Laboratory Results Laboratory Tests Test 07/18/17 05:40 White Blood Count 5.6 TH/MM3 Red Blood Count 3.37 MIL/MM3 Hemoglobin 10.8 GM/DL Hematocrit 30.8 % Mean Corpuscular Volume 91.3 FL Mean Corpuscular Hemoglobin 31.9 PG Mean Corpuscular Hemoglobin Concent 34.9 % Red Cell Distribution Width 15.9 % Platelet Count 214 TH/MM3 Mean Platelet Volume 8.0 FL Administered Medications Medications (Trade) Dose Ordered Sig/Benedicto Route PRN Reason Start Time Stop Time Status Last Admin Dose Admin Sodium Chloride (NS Flush) 2 ml BID IV FLUSH 07/11/17 21:00 07/17/17 09:00 Ondansetron HCl (Zofran Inj) 4 mg Q6H PRN IVP NAUSEA OR VOMITING 07/11/17 19:45 07/17/17 11:05 Senna/Docusate Sodium ([place]-Colace) 1 tab BID PO 07/11/17 21:00 11/19/17 19:47 Levothyroxine Sodium (Synthroid) 50 mcg DAILY@0600 PO 07/12/17 06:00 07/18/17 05:37 Atorvastatin Calcium (Lipitor) 10 mg HS PO 07/11/17 21:00 07/17/17 22:08 Oxycodone/ Acetaminophen (Percocet 5-325 Mg) 1 tab Q4H PRN PO Pain 6-10 07/11/17 19:45 07/16/17 20:12 Objective Remarks GENERAL: Well-nourished, well-developed patient. SKIN: Warm and dry. HEAD: Normocephalic. EYES: No scleral icterus. No injection or drainage. CARDIOVASCULAR: Regular rate and rhythm without murmurs. RESPIRATORY: Breath sounds equal bilaterally. No accessory muscle use. MUSCULOSKELETAL: Adequate muscle tone. NEUROLOGICAL: No obvious focal deficit. Awake, alert, and oriented x3. PSYCHIATRIC: Appropriate mood and affect; insight and judgment normal. Assessment/Plan Problem List: (1) Cancer with unknown primary site ICD Codes: C80.1 - Malignant (primary) neoplasm, unspecified Status: Chronic Plan: patient plans to enroll in clinical trial at [facility] currently treated at [facility] s/p Taxol and Carbo (2) Vaginal bleeding ICD Codes: N93.9 - Abnormal uterine and vaginal bleeding, unspecified Status: Acute Plan: s/p 5 treatments of vaginal radiation bleeding overall has improved Dr. Calix examined yesterday, no vaginal packing Doni Mullins Jul 18, 2017 07:25
[2017-07-18 07:46] VITALS: BP 112/69; PULSE 86; RESP 19; TEMP 97.1; O2SAT 95
--- NOTE | 2017-07-18 08:58 | HHI.DCPOC ---
Discharge Care Plan Diagnosis: (1) Pelvic mass in female (2) Vaginal bleeding (3) Anemia Goals to Promote Your Health * To prevent worsening of your condition and complications * To maintain your health at the optimal level Directions to Meet Your Goals Take your medications as prescribed Follow your dietary instruction Follow activity as directed Keep your appointments as scheduled Take your immunizations and boosters as scheduled If your symptoms worsen call your PCP, if no PCP go to Urgent Care Center or Emergency Room Smoking is Dangerous to Your Health. Avoid second hand smoke Call the 24-hour hour crisis hotline for domestic abuse at Goyo Maurer MD Jul 18, 2017 08:58
--- NOTE | 2017-07-18 08:59 | HHI.DS ---
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 The patient is known to Dr. Calix who has applied Monsel solution in the past to achieve hemostasis. The patient was seen in interventional radiology earlier today for angiography of the pelvis with no active bleeding identified. The uterine arteries are ligated. Since her arrival in the ED this morning, the patient's hemoglobin went from 9.7 to 8.2. She reports she is still having significant amounts of vaginal bleeding with intermittent clots. She reports feeling lightheaded upon getting out of bed. The patient is seeking treatment at [facility] however has not begun any immunotherapy. She is status post resection of pelvic mass with end block resection of sigmoid colon and distal rectum with end colostomy ileostomy for removal of the tumors in November of this year. She is admitted for blood loss and serial H&H's. CBC/BMP: 07/18/17 0540 07/17/17 0455 Significant Findings Laboratory Tests Test 07/16/17 07:51 07/17/17 04:55 07/18/17 05:40 Red Blood Count 3.01 MIL/MM3 (4.00-5.30) 2.53 MIL/MM3 (4.00-5.30) 3.37 MIL/MM3 (4.00-5.30) Hemoglobin 9.7 GM/DL (11.6-15.3) 8.2 GM/DL (11.6-15.3) 10.8 GM/DL (11.6-15.3) Hematocrit 28.0 % (35.0-46.0) 23.6 % (35.0-46.0) 30.8 % (35.0-46.0) Calcium Level 8.4 MG/DL (8.5-10.1) Imaging Last Impressions Angiography 07/11/17 0000 Signed Impressions: Service Date/Time: Tuesday, July 11, 2017 15:42 - CONCLUSION: 1. There is tumor blush in the pelvis bilaterally however there is not a definitive feeding vessel. This appears to be small vessel recruitment and is not amenable to embolization without completely occluding the hypogastric circulation. Rupert Oliver MD PE at Discharge GENERAL: This is a well-nourished, well-developed patient, in no apparent distress. CARDIOVASCULAR: Normal rate and regular rhythm without murmurs, gallops, or rubs. RESPIRATORY: Good respiratory efforts. Breath sounds equal and clear to auscultation bilaterally. GASTROINTESTINAL: Abdomen soft, colostomy appear intact. Normal active bowel sounds MUSCULOSKELETAL: Extremities without cyanosis, or edema. NEURO: Alert & Oriented x4 to person, place, time, situation. Moves all ext x4 PSYCH: Appropriate mood and affect. Pt update on day of discharge Patient reports she is feeling much better today. Looking forward to going home. Hospital Course 67-year-old female with a malignant pelvic mass and metastatic disease admitted with intractable vaginal bleeding. Evaluation and treatment course detailed below: Cancer with unknown primary site: Patient currently being treated under the direction of Dr. Henry at [facility] s/p taxol and carboplatin currently awaiting clinical trial at [facility] -Appreciate radiation oncology following. Patient is underwent 5 treatment with radiation therapy which helped control the bleeding. She will follow-up outpatient with radiation oncology. Vaginal bleeding IR was consulted for embolization but was not completed because no definite vessels feeding the tumor masses identified by angiography. vaginal packing placed with Surgicel, Monsel solution and vaginal packing,. Packing eventually fell out/removed by [employer] oncology. Vaginal bleeding significantly improved. Anemia secondary to acute blood loss. Patient received a total of 3 units of PRBC. H&H stabilized. Chronic medical conditions of asthma, hyperlipidemia and hypothyroidism, continue home meds. Pt Condition on Discharge: Good Discharge Disposition: Discharge Home Discharge Time: <= 30 minutes Discharge Instructions DIET: Follow Instructions for: As Tolerated, No Restrictions Activities you can perform: Regular-No Restrictions Continued Medications: Albuterol 18 GM Inh (Ventolin Hfa 18 GM Inh) 90 Mcg/Act Aer 2 PUFF INH Q4-6H PRN for SHORTNESS OF BREATH, #1 INHALER 0 Refills B-Complex Vitamins (B Complex) 1 Cap 1 CAP PO DAILY for Nutritional Supplement, #30 CAP 0 Refills Levothyroxine (Synthroid) 50 Mcg Tab 50 MCG PO DAILY for Thyroid, #30 TAB 0 Refills Rosuvastatin (Crestor) 5 Mg Tab 5 MG PO HS for Cholesterol Management, #30 TAB 0 Refills Goyo Maurer MD Jul 18, 2017 08:59
[2017-07-18] MEDS: SODIUM CHLORIDE 0.9% FLUSH 10 ML FLUSH IV FLUSH SCH (09:00)
[2017-07-18] MEDS: DOCUSATE SODIUM 50 MG/SENNA 8.6 MG TAB PO SCH (09:00)
== END 2017-07-18 12:10 | disposition home or self-care (01) | DRG 844 ==
LOC: NEPC 09:30 → NEDA 18:50 → NEPGCP 20:05 → OBSVTOIN 07-13 14:27 → N06B 07-14 00:38
PROVIDERS: ADMIT Family Medicine; ATTEND Family Medicine
PROC: 30243N1 Transfusion of Nonautologous Red Blood Cells into Central Vein, Percutaneous Approach (ICD-10-PCS; principal; 2017-07-12)
PROC: B41FYZZ Fluoroscopy of Right Lower Extremity Arteries using Other Contrast (ICD-10-PCS; 2017-07-12)
PROC: B41JYZZ Fluoroscopy of Other Lower Arteries using Other Contrast (ICD-10-PCS; 2017-07-12)
DX: C80.0 Disseminated malignant neoplasm, unspecified (principal); D62 Acute posthemorrhagic anemia; N93.9 Abnormal uterine and vaginal bleeding, unspecified; E78.5 Hyperlipidemia, unspecified; E03.9 Hypothyroidism, unspecified; Z85.828 Personal history of other malignant neoplasm of skin; Z88.2 Allergy status to sulfonamides; Z92.21 Personal history of antineoplastic chemotherapy; Z93.3 Colostomy status
CPT/HCPCS: 36247; 36430; 75716; 75736; 76937; 77412; 80048; 80053; 83735; 85014; 85018; 85025; 85027; 85610; 85730; 86850; 86900; 86901; 86920; 99152; 99153; C1760; C1769; C1887; C1894; G0269; J0690; J1642; J1940; J2250; J2405; J3010; J7040; J7050; P9016; Q9967